=== PATIENT | male | born 1955 | race Caucasian/White ===

== ENCOUNTER → 2016-07-05 | Outpatient (CLI) | payer OTHER ==
[~2016-07-05] MED LIST: ASPI81TA28 PO; CYCL10TA6 PO; DOCU-94 PO; FSMD/70 PO; HYDR-3763 PO; HYDR-4383 PO; LISI-461 PO; METF-384 PO; NAPR1TAB9 PO; OXYC20TA50 PO
[2016-07-05 09:44] LABS: HEMATOCRIT 40.9 % (42-52); MEAN CELL VOLUME 83.3 fL (80-100); MEAN CORPUSCULAR HEMOGLOBIN 28.7 pg (25-34); MEAN CORPUSCULAR HGB CONC 34.5 g/dl (32-36); MEAN PLATELET VOLUME 9.6 fL (7.4-10.4); PLATELET COUNT 284 K/uL (130-400); RED BLOOD COUNT 4.91 M/uL (4.7-6.1); WHITE BLOOD COUNT 17.43 K/uL (4.8-10.8)
[2016-07-05 10:17] LABS: ESTIMATED AVERAGE GLUCOSE 126 mg/dl; HA1C FLAG Normal (Normal)
[2016-07-05 10:33] LABS: BASO % 0.2 %; BASO ABS # 0.04 K/uL (0-0.2); COMPLETE YES; IG% 0.2 %; LYMPH % 60.9 %; LYMPH ABS # 10.62 K/uL (1.2-3.4); MONO % 6.9 %; NEUT % 29.8 %; SMUDGE CELLS PRESENT
== END | disposition home or self-care (01) ==
LOC: C.LAB 07:58
DX: E11.9 Type 2 diabetes mellitus without complications (principal); C91.10 Chronic lymphocytic leukemia of B-cell type not having achieved remission

== ENCOUNTER → 2017-01-10 | Outpatient (CLI) | payer OTHER ==
--- NOTE | 2017-01-10 08:25 | DIAGNOSTIC IMAGING REPORT ---
CHEST 2 VIEWS ROUTINE HISTORY: 61 years-old Male SEE ORDER acute cough. COMPARISON: Chest radiograph 02/16/2016 TECHNIQUE: Frontal and lateral views of the chest FINDINGS: Cardiac silhouette is within normal limits. There is atherosclerosis of the aorta. No pneumothorax. Lungs are hyperinflated with chronic blunting of the bilateral costophrenic angles. No large pleural effusion is identified. No focal airspace consolidation. The bones are grossly intact. Remote fracture deformity of the left proximal humerus. IMPRESSION: Hyperinflation without acute cardiopulmonary process. The above report was generated using voice recognition software. It may contain grammatical, syntax or spelling errors. Electronically signed by: Sean Pickett M.D. 01/10/2017 8:23 AM Dictated Date/Time: 01/10/2017 8:22 AM
[2017-01-10 09:33] LABS: URINE APPEARANCE CLEAR (CLEAR); URINE BILIRUBIN NEG (NEG); URINE COLOR YELLOW; URINE NITRITE NEG (NEG); URINE PH 5.5 (4.5-7.5); URINE SPECIFIC GRAVITY 1.016 (1.000-1.030); UROBILINOGEN NEG (NEG)
[2017-01-10 09:35] LABS: HEMATOCRIT 42.1 % (42-52); MEAN CELL VOLUME 85.2 fL (80-100); MEAN CORPUSCULAR HEMOGLOBIN 28.1 pg (25-34); MEAN PLATELET VOLUME 9.5 fL (7.4-10.4); PLATELET COUNT 290 K/uL (130-400); RED BLOOD COUNT 4.94 M/uL (4.7-6.1); WHITE BLOOD COUNT 15.46 K/uL (4.8-10.8)
[2017-01-10 09:38] LABS: MANUAL MICROSCOPIC REQUIRED? NO; REVIEW REQ? NO
[2017-01-10 09:53] LABS: ESTIMATED AVERAGE GLUCOSE 131 mg/dl; HA1C FLAG Normal (Normal)
[2017-01-10 09:56] LABS: ALT/SGPT 22 U/L (12-78); AST/SGOT 15 U/L (15-37); BLOOD UREA NITROGEN 13 mg/dl (7-18); BUN/CREATININE RATIO 17.8 (10-20); CALCIUM 8.7 mg/dl (8.5-10.1); CARBON DIOXIDE 29 mmol/L (21-32); CHLORIDE 105 mmol/L (98-107); CREATININE 0.75 mg/dl (0.60-1.40); GLUCOSE 108 mg/dl (70-99); POTASSIUM 4.3 mmol/L (3.5-5.1); SODIUM 138 mmol/L (136-145)
[2017-01-10 10:08] LABS: ALB/GLOB RATIO 1.3 (0.9-2); ALKALINE PHOSPHATASE 62 U/L (45-117); CHOLESTEROL 122 mg/dl (0-200); CHOLESTEROL/HDL RATIO 4.2; HDL CHOLESTEROL 29 mg/dl; LDL CHOLESTEROL CALCULATED 72 mg/dl; TRIGLYCERIDES 106 mg/dl (0-150); URIC ACID 4.3 mg/dl (2.6-7.2); VERY LOW DENSITY LIPOPROT CALC 21 mg/dl
== END | disposition home or self-care (01) ==
LOC: C.RAD 07:41
DX: E11.9 Type 2 diabetes mellitus without complications (principal); C91.10 Chronic lymphocytic leukemia of B-cell type not having achieved remission; M15.0 Primary generalized (osteo)arthritis; I10 Essential (primary) hypertension; J44.9 Chronic obstructive pulmonary disease, unspecified; E66.9 Obesity, unspecified; Z12.5 Encounter for screening for malignant neoplasm of prostate; Z12.11 Encounter for screening for malignant neoplasm of colon; R05 Cough

== ENCOUNTER → 2017-05-16 | Outpatient (CLI) | payer OTHER ==
[2017-05-16 09:36] LABS: HEMATOCRIT 41.2 % (42-52); HEMOGLOBIN 14.3 g/dL (14.0-18.0); MEAN CELL VOLUME 85.3 fL (80-100); MEAN CORPUSCULAR HEMOGLOBIN 29.6 pg (25-34); MEAN CORPUSCULAR HGB CONC 34.7 g/dl (32-36); MEAN PLATELET VOLUME 9.5 fL (7.4-10.4); PLATELET COUNT 286 K/uL (130-400); RED CELL DISTRIBUTION WIDTH CV 13.1 % (11.5-14.5); WHITE BLOOD COUNT 18.34 K/uL (4.8-10.8)
== END | disposition home or self-care (01) ==
LOC: C.LAB 07:40
PROVIDERS: ATTEND Physician Assistant
DX: C91.10 Chronic lymphocytic leukemia of B-cell type not having achieved remission (principal)

== ENCOUNTER → 2017-07-11 | Outpatient (CLI) | payer OTHER ==
--- NOTE | 2017-07-11 10:18 | DIAGNOSTIC IMAGING REPORT ---
R KNEE 3 VIEWS CLINICAL HISTORY: POLYOSTEOARTHRITIS,UNSPEC COMPARISON: None. DISCUSSION: Considerable degenerative change of all major joint compartments. Mild reactive sclerosis of the articular services. Mild reactive osteophytic changes throughout. No significant joint effusion. There is no evidence for soft tissue swelling. IMPRESSION: Severe degenerative change all major joint compartments. The above report was generated using voice recognition software. It may contain grammatical, syntax or spelling errors. Electronically signed by: Dhaval Mota M.D. 07/11/2017 10:17 AM Dictated Date/Time: 07/11/2017 10:16 AM
== END | disposition home or self-care (01) ==
LOC: C.RAD 09:48
PROVIDERS: ATTEND Physician Assistant
DX: M15.9 Polyosteoarthritis, unspecified (principal)

== ENCOUNTER 2018-09-23 12:26 | Inpatient (IN) ==
[2018-09-23] MEDS ORDERED: SODIUM CHLORIDE 0.9% 500 ML IV ONE (12:37)
[2018-09-23] MEDS ORDERED: SODIUM CHLORIDE 0.9% 1000ML 1,000 ML IV SCH (12:45)
[2018-09-23 12:59] LABS: Hematocrit (blood only) 36.2 % (42-52); Hemoglobin 12.8 g/dL (14.0-18.0); Mean Corpuscular Hgb Conc 35.4 g/dL (32-36); Mean Corpuscular Volume 83.2 fL (80-100); Mean Platelet Volume 8.8 fL (7.4-10.4); Platelet Count 269 K/uL (130-400); RDW Coefficient of Variation 12.7 % (11.5-14.5); RDW Standard Deviation 38.8 fL (36.4-46.3); Red Blood Count 4.35 M/uL (4.7-6.1); White Blood Count 16.08 K/uL (4.8-10.8)
--- NOTE | 2018-09-23 13:06 | XRay Report ---
XR chest 1V portable CLINICAL HISTORY: femur fx trauma COMPARISON STUDY: 03/26/2018 FINDINGS: Mildly dense. Mediastinal fullness felt to be secondary to the AP portable technique. Lungs are clear. Diaphragms are smooth. Several old left sided rib fractures. IMPRESSION: No acute process. The above report was generated using voice recognition software. It may contain grammatical, syntax or spelling errors. Electronically signed by: Dhaval Mota M.D. 09/23/2018 1:05 PM
--- NOTE | 2018-09-23 13:07 | XRay Report ---
XR hip LT min 2V CLINICAL HISTORY: fx trauma. Pain. COMPARISON: None. DISCUSSION: Transverse displaced fracture mid left femoral shaft. The proximal aspect of the femur is 2.8 cm lateral to the distal aspect of the femur. Hip itself appears intact. There is no evidence fo r soft tissue swelling. IMPRESSION: Displaced transverse fracture mid left femoral shaft. The distal aspect of the femur is d isplaced medially 2.8 cm in relation to the proximal femur The above report was generated using voice recognition software. It may contain grammatical, syntax or spelling errors. Electronically signed by: Dhaval Mota M.D. 09/23/2018 1:06 PM
--- NOTE | 2018-09-23 13:08 | XRay Report ---
XR femur LT 2V routine CLINICAL HISTORY: Left leg pain. COMPARISON STUDY: None. FINDINGS: Left mid shaft femoral fracture demonstrating 3 cm of medial displacement and 2 cm of poste rior displacement.. An external brace is noted. No dislocation. IMPRESSION: Displaced midshaft left femoral fracture. Electronically signed by: Ricky Raman M.D. 09/23/2018 1:07 PM
[2018-09-23 13:15] LABS: BUN Creatinine Ratio 15.1 (10-20); Calcium 8.9 mg/dl (8.5-10.1); Creatinine Clr Calc Pharmacy 95.4 ml/min; Est GFR (African American) 104.5; Est GFR (Non-African American) 90.1; Potassium 3.9 mmol/L (3.5-5.1)
--- NOTE | 2018-09-23 13:18 | Emergency Department Note ---
Entered by Zohreh Arora acting as a scribe for Juan Pickering DO History of Present Illness General Chief complaint: Leg Injury/Pain Time Seen by Provider: 09/23/18 12:29 Source: patient and EMS History of Present Illness Onset (ago): minute(s) (prior to arrival) Location: lower extremity (left) Pain Consistency: + other (episode) Current Pain Intensity: 5 Quality: + other (leg injury) Relieved By: + medication (Zofran, Morphine) Associated symptoms: + denies other symptoms (abdominal pain, loss of consciousness) and + other (dizziness, chronic ear ringing) The patient is a 63 year old male who presents to the ED with complaints of an episode of a leg injury occurring prior to arrival. The patient states that he was mowing his yard backwards down a steep hill when he slipped and fell. He states that he held onto the mower to keep it from running him over and he ended up hitting the patio table at the bottom of the hill. He notes that he hit the table with his left leg. He states that he knew something was really wrong when he was lying on the ground and his leg was up by his head. He notes that at this time he started to become dizzy while lying there. He reports that he called out for his and she called 911. EMS notes that they gave the patient 10 of Morphine and 4 of Zofran. The patient states that he has left leg pain and currently rates it as a 5/10 in severity. The patient complains of chronic ear ringing. The patient denies the use of blood thinners, hitting his head, abdominal pain, and loss of consciousness. Home Medications Home Medications Medication Instructions Recorded Confirmed Type alendronate 70 mg PO DAILY 03/26/18 09/23/18 History aspirin 81 mg PO DAILY 03/26/18 09/23/18 History carboxymethylcellulose sodium 1 drops OP Q1H #12 ml 03/26/18 09/23/18 Rx [Refresh Contacts eye drops] hydrocodone-acetaminophen 1 tab PO Q6H 03/26/18 09/23/18 History metformin 1,000 mg PO BID 03/26/18 09/23/18 History lisinopril 40 mg PO DAILY 09/23/18 09/23/18 History meloxicam 15 mg PO DIRECTED 09/23/18 09/23/18 History Allergies Allergy/AdvReac Type Severity Reaction Status Date / Time morphine Allergy Unknown Hives, Verified 11/09/17 17:25 Shakes Past Med/Surg History Medical History Hypertension Chronic lumbar pain Chronic lymphoid leukemia Diabetes Surgical History History of back surgery Family History Other No significant family history Social History marital status: Current Living Situation: Family current occupational status: retired Feels Safe at Home: Yes Smoking Status: Current every day smoker Review of Systems See HPI for pertinent positives & negatives. and A total of 10 systems reviewed and were otherwise negative Physical Exam Vital Signs Vital Signs - 24 hr 09/23/18 12:27 09/23/18 12:40 09/23/18 12:42 Sepsis Recent Fever Within 48 Hours No Sepsis Action Taken by Nursing No Action Required Pulse Rate 88 96 H Pulse Rate from SpO2 Sensor 89 Pulse Strength Absent Respiratory Rate 18 Respiratory Effort / Characteristics Non-Labored Respiratory Depth Normal Blood Pressure 99/58 L 108/56 L 99/59 L Blood Pressure Mean 71 73 72 Blood Pressure Position Lying Pulse Oximetry 97 98 Oxygen Delivery Method Room Air 09/23/18 12:46 09/23/18 13:15 09/23/18 13:31 Sepsis Recent Fever Within 48 Hours Sepsis Action Taken by Nursing Pulse Rate 88 83 93 H Pulse Rate from SpO2 Sensor 90 85 89 Pulse Strength Respiratory Rate 14 16 Respiratory Effort / Characteristics Respiratory Depth Blood Pressure 97/63 L 107/59 L Blood Pressure Mean 74 75 Blood Pressure Position Pulse Oximetry 97 98 96 Oxygen Delivery Method 09/23/18 13:45 Sepsis Recent Fever Within 48 Hours Sepsis Action Taken by Nursing Pulse Rate 100 H Pulse Rate from SpO2 Sensor 97 H Pulse Strength Respiratory Rate 17 Respiratory Effort / Characteristics Respiratory Depth Blood Pressure 99/59 L Blood Pressure Mean 72 Blood Pressure Position Pulse Oximetry 99 Oxygen Delivery Method CONSTITUTIONAL/VITAL SIGNS: Reviewed / noted above. GENERAL: Non-toxic in appearance. INTEGUMENTARY: Warm, dry, and [place]. HEAD: Normocephalic. EYES: without scleral icterus or trauma. ENT/OROPHARYNX: clear and moist. LYMPHADENOPATHY/NECK: Is supple without lymphadenopathy or meningismus. RESPIRATORY: Lungs clear and equal. CARDIOVASCULAR: Regular rate and rhythm. GI/ABDOMEN: Soft and nontender. No organomegaly or pulsatile mass. No rebound or guarding. Normal bowel sounds. EXTREMITIES: Warm and well perfused. BACK: No CVA tenderness. NEUROLOGICAL: Intact without focal deficits. PSYCHIATRIC: normal affect. MUSCULOSKELETAL: Normally developed with good muscle tone. Tenderness to palpation of his left proximal femur. Good distal pulses. Course 1229: The patient was evaluated in room A1. A complete history and physical exam was performed. 1318: I discussed the patient's case with Dr. Mariella Hubbard. He will come see the patient, but wants medicine to clear him. 1325: I discussed the patient's case with Dr. Rosa Maria SANTANA Hospitalist. She will come clear the patient. Consultations Consultation #1: I discussed the patient's case with Dr. Mariella Hubbard. He will come see the patient, but wants medicine to clear him. Time: 13:18 Consultation #2: I discussed the patient's case with Dr. Rosa Maria SANTANA Hospitalist. She will come clear the patient. Time: 13:25 Administered Medications Sodium Chloride (Nss 1000ml) 1,000 mls @ 150 mls/hr IV .[id number] SANAM Stop: 09/23/18 19:24 Last Admin: 09/23/18 13:35 Dose: 150 mls/hr Documented by: [id number] Discontinued Medications Hydromorphone HCl (Dilaudid) 1 mg IV NOW STA Stop: 09/23/18 13:38 Last Admin: 09/23/18 13:49 Dose: 1 mg Documented by: [id number] Sodium Chloride (Nss) 500 mls @ 999 mls/hr IV .Q31M ONE Stop: 09/23/18 13:07 Last Infusion: 09/23/18 13:23 Dose: 0 mls/hr Documented by: [id number] Admin: 09/23/18 12:46 Dose: 999 mls/hr Documented by: [id number] Medical Decision Making Differential Diagnosis Differential diagnosis: Etiologies such as fracture, dislocation, neurovascular compromise, compartment syndrome, soft tissue injury, as well as others were entertained. Medical Records Attestation: I reviewed the patient's medical records. Home Medications Current Medication List: was personally reviewed by me Laboratory Data Attestation: I reviewed the patient's lab results. Result diagrams: 09/23/18 12:41 09/23/18 12:41 Lab Results 09/23/18 09/23/18 09/23/18 Range/Units 12:41 12:41 12:41 WBC 16.08 H (4.8-10.8) K/uL RBC 4.35 L (4.7-6.1) M/uL Hgb 12.8 L (14.0-18.0) g/dL Hct 36.2 L (42-52) % MCV 83.2 (80-100) fL MCH 29.4 (25-34) pg MCHC 35.4 (32-36) g/dL RDW Std Deviation 38.8 (36.4-46.3) fL RDW Coeff of Maury 12.7 (11.5-14.5) % Plt Count 269 (130-400) K/uL MPV 8.8 (7.4-10.4) fL Immature Gran % (Auto) 0.2 % Neut % (Auto) 36.8 % Lymph % (Auto) 55.4 % [place] % (Auto) 6.5 % Eos % (Auto) 0.9 % Baso % (Auto) 0.2 % Immature Gran # (Auto) 0.04 H (0.00-0.02) K/uL Neut # (Auto) 5.92 (1.4-6.5) K/uL Lymph # (Auto) 8.91 H (1.2-3.4) K/uL [place] # (Auto) 1.04 H (0.11-0.59) K/uL Eos # (Auto) 0.14 (0-0.5) K/uL Baso # (Auto) 0.03 (0-0.2) K/uL PT 10.0 (9.0-12.0) Seconds INR 1.0 (0.9-1.1) APTT 24.5 (21.0-31.0) Seconds PTT Ratio 0.9 Sodium 132 L (136-145) mmol/L Potassium 3.9 (3.5-5.1) mmol/L Chloride 100 (98-107) mmol/L Carbon Dioxide 25 (21-32) mmol/L Anion Gap 7.0 (3-11) BUN 13 (7-18) mg/dl Creatinine 0.88 (0.6-1.4) mg/dl Est Cr Clr Drug Dosing 95.4 ml/min Est GFR ( Amer) 104.5 Est GFR (Non-Af Amer) 90.1 BUN/Creatinine Ratio 15.1 (10-20) Glucose 94 (70-99) mg/dl Calcium 8.9 (8.5-10.1) mg/dl Blood Type Antibody Screen 09/23/18 Range/Units 12:41 WBC (4.8-10.8) K/uL RBC (4.7-6.1) M/uL Hgb (14.0-18.0) g/dL Hct (42-52) % MCV (80-100) fL MCH (25-34) pg MCHC (32-36) g/dL RDW Std Deviation (36.4-46.3) fL RDW Coeff of Maury (11.5-14.5) % Plt Count (130-400) K/uL MPV (7.4-10.4) fL Immature Gran % (Auto) % Neut % (Auto) % Lymph % (Auto) % [place] % (Auto) % Eos % (Auto) % Baso % (Auto) % Immature Gran # (Auto) (0.00-0.02) K/uL Neut # (Auto) (1.4-6.5) K/uL Lymph # (Auto) (1.2-3.4) K/uL [place] # (Auto) (0.11-0.59) K/uL Eos # (Auto) (0-0.5) K/uL Baso # (Auto) (0-0.2) K/uL PT (9.0-12.0) Seconds INR (0.9-1.1) APTT (21.0-31.0) Seconds PTT Ratio Sodium (136-145) mmol/L Potassium (3.5-5.1) mmol/L Chloride (98-107) mmol/L Carbon Dioxide (21-32) mmol/L Anion Gap (3-11) BUN (7-18) mg/dl Creatinine (0.6-1.4) mg/dl Est Cr Clr Drug Dosing ml/min Est GFR ( Amer) Est GFR (Non-Af Amer) BUN/Creatinine Ratio (10-20) Glucose (70-99) mg/dl Calcium (8.5-10.1) mg/dl Blood Type O Positive Antibody Screen NEGATIVE Imaging Data Radiologist's Impression: Radiology results as stated below per my review and the radiologist's interpretation: XR chest 1V portable CLINICAL HISTORY: femur fx trauma COMPARISON STUDY: 03/26/2018 FINDINGS: Mildly dense. Mediastinal fullness felt to be secondary to the AP portable technique. Lungs are clear. Diaphragms are smooth. Several old left sided rib fractures. IMPRESSION: No acute process. The above report was generated using voice recognition software. It may contain grammatical, syntax or spelling errors. Electronically signed by: Dhaval Mota M.D. 09/23/2018 1:05 PM XR hip LT min 2V CLINICAL HISTORY: fx trauma. Pain. COMPARISON: None. DISCUSSION: Transverse displaced fracture mid left femoral shaft. The proximal aspect of the femur is 2.8 cm lateral to the distal aspect of the femur. Hip itself appears intact. There is no evidence for soft tissue swelling. IMPRESSION: Displaced transverse fracture mid left femoral shaft. The distal aspect of the femur is displaced medially 2.8 cm in relation to the proximal femur The above report was generated using voice recognition software. It may contain grammatical, syntax or spelling errors. Electronically signed by: Dhaval Mota M.D. 09/23/2018 1:06 PM XR femur LT 2V routine CLINICAL HISTORY: Left leg pain. COMPARISON STUDY: None. FINDINGS: Left mid shaft femoral fracture demonstrating 3 cm of medial displacement and 2 cm of posterior displacement.. An external brace is noted. No dislocation. IMPRESSION: Displaced midshaft left femoral fracture. Electronically signed by: Ricky Raman M.D. 09/23/2018 1:07 PM ECG Data Attestation: I personally reviewed and interpreted this ECG as follows: Indication: other (dizziness) Rate (beats per minute): 88 Rhythm: normal sinus Findings: no PAC, no PVC, no ST elevation and no ectopy Blood Pressure Blood Pressure Findings: Low blood pressure Blood Pressure Disposition: further management by hospitalist TEO Jama This is a 63-year-old male who presents to the ED with a chief complaint of a left leg injury. The patient injured his left femur when he was mowing his lawn. The patient states that he went backwards and slipped over a hill and then hit his left leg against a picnic table. The patient was brought in by [facility]. The patient was placed in traction by EMS. He denies any injuries other than his leg. Denies striking his head or loss of consciousness. His exam reveals pain in the left mid femur area. The x-ray reveals a midshaft femur fracture that is displaced. Is CBC is unremarkable. Chemistry panel was unremarkable. The patient was given 10 mg of IV morphine by EMS. The patient was told the results of the test. I spoke with Dr. Pierre about the patient. He will see the patient in the emergency department. The patient will also be seen by the hospitalist service for medical clearance. The patient was given IV pain medication here in the form of Dilaudid. Impression & Plan Femur fracture, left Discharge Plan Visit Data Chief Complaint: Leg Injury/Pain ED Provider: Juan Pickering Discharge Problem: Femur fracture, left Patient Disposition: Being Evaluated by Surgeon Forms Stand Alone Forms: My [facility] Prescriptions Prescriptions: No Action Refresh Contacts drops 1 drops OP Q1H Qty: 12 RF: 0 alendronate 70 mg tablet 70 mg PO DAILY RF: 0 hydrocodone-acetaminophen 10-325 mg tablet 1 tab PO Q6H RF: 0 aspirin 81 mg Tablet,Delayed Release (Dr/Ec) 81 mg PO DAILY RF: 0 metformin 1,000 mg Tablet 1,000 mg PO BID RF: 0 meloxicam 15 mg tablet 15 mg PO DIRECTED RF: 0 lisinopril 40 mg tablet 40 mg PO DAILY RF: 0 Referrals Referrals: Kel Quinones PA-C [Primary Care Provider] - Discharge Problem: Femur fracture, left Qualifiers: Encounter type: initial encounter Femur location: unspecified portion of femur Fracture type: closed Fracture morphology: unspecified fracture morphology Qualified Code(s): S72.92XA - Unspecified fracture of left femur, initial e ncounter for closed fracture The scribe's documentation has been prepared under my direction and personally reviewed by me in its entirety. I confirm that the note above accurately reflects all work, treatment, procedures, and medical decision making performed by me.
[2018-09-23 13:26] LABS: Partial Thromboplastin Ratio 0.9; Partial Thromboplastin Time 24.5 Seconds (21.0-31.0)
[2018-09-23 13:37] LABS: Basophils # (auto) 0.03 K/uL (0-0.2); Basophils % (auto) 0.2 %; Eosinophils # (auto) 0.14 K/uL (0-0.5); Eosinophils % (auto) 0.9 %; Immature Granulocytes # (auto) 0.04 K/uL (0.00-0.02); Immature Granulocytes % (auto) 0.2 %; Lymphocytes # (auto) 8.91 K/uL (1.2-3.4); Lymphocytes % (auto) 55.4 %; Monocytes # (auto) 1.04 K/uL (0.11-0.59); Monocytes % (auto) 6.5 %; Neutrophils # (auto) 5.92 K/uL (1.4-6.5); Neutrophils % (auto) 36.8 %
[2018-09-23] MEDS ORDERED: HYDROmorphone INJ 1 MG/ML SYRINGE IV STA (13:37)
--- NOTE | 2018-09-23 14:03 | History & Physical Report ---
Date of Service September 23, 2018 Assessment & Plan (1) Femur fracture, left: Admission to med surg floor Plan on surgery tomorrow around noon OR time/room established Consult Medicine for medical clearance Placed in to white hall traction Pain mildly controlled with IV medication Will relay info to Dr. Gabby Pierre will see the patient this afternoon. Encounter type: initial encounter Femur location: unspecified portion of femur Fracture morphology: unspecified fracture morphology Fracture type: closed Qualified Code(s): S72.92XA - Unspecified fracture of left femur, initial encounter for closed fracture History of Present Illness Chief Complaint: Left femur fracture Primary Care Provider: Kel Quinones This 63 yo M is seen today in ED after sustaining a left upper leg injury. Patient was mowing his law earlier today, got too close to an embankment, fell down the hill and struck his left leg off of a patio table. Patient states that he had an obvious deformity of the left lower extremity and had his call EMS. Patient was placed into a traction splint before being transferred to the hospital. Patient denies any head or neck trauma. He denies CP, SOB, nausea, vomiting, LOC, headache, fever, chills or sweat. His only complaint is of pain to his mid femur where "the bone is pushing out." Allergies Allergy/AdvReac Type Severity Reaction Status Date / Time morphine Allergy Unknown Hives, Verified 11/09/17 17:25 Sha Home Medications Home Medications Medication Instructions Recorded Confirmed Type alendronate 70 mg PO DAILY 03/26/18 09/23/18 History aspirin 81 mg PO DAILY 03/26/18 09/23/18 History carboxymethylcellulose sodium 1 drops OP Q1H #12 ml 03/26/18 09/23/18 Rx [Refresh Contacts eye drops] hydrocodone-acetaminophen 1 tab PO Q6H 03/26/18 09/23/18 History metformin 1,000 mg PO BID 03/26/18 09/23/18 History lisinopril 40 mg PO DAILY 09/23/18 09/23/18 History meloxicam 15 mg PO DIRECTED 09/23/18 09/23/18 History Past Med/Surg History Medical History Hypertension Chronic lumbar pain Chronic lymphoid leukemia Diabetes Surgical History History of back surgery Family History Other No significant family history Social History marital status: Current Living Situation: Family current occupational status: retired Feels Safe at Home: Yes Smoking Status: Current every day smoker Review of Systems All systems reviewed & are unremarkable except as noted in HPI & below Physical Exam Vital Signs (Past 24 Hours): Last Vital Signs Pulse 100 H 09/23/18 13:45 Resp 17 09/23/18 13:45 BP 99/59 L 09/23/18 13:45 Pulse Ox 99 09/23/18 13:45 Constitutional: WD/WN, vitals as above cooperative and + overweight Eyes: PERRL, conjunctivae normal, anicteric sclerae EOM intact bilaterally Respiratory: normal respiratory effort, lungs clear to auscultation Cardiovascular: RRR, no murmur, no edema Gastrointestinal (Abdomen): normal bowel sounds, soft, nontender, no hepatosplenomegaly Musculoskeletal: Left lower leg: shortened and externally rotated. Edema and tenderness to palpation over anterior and lateral aspect of mid femur with palpable deformity. NV intact. Able to dorsi/plantar flex foot actively. Appropriate dexterity of toes. Periph pulses palpable. Cap refill < 2 seconds. Calf soft, supple and non-tender to palpation. Knee and Hip ROM not tested due to injury. Skin: no rashes, warm and dry Neurologic: CN's II-XI intact bilaterally Psychiatric: Orientation: alert and oriented x 3 Results & Data Laboratory Results 09/23/18 09/23/18 09/23/18 Range/Units 13:56 12:41 12:41 WBC (4.8-10.8) K/uL RBC (4.7-6.1) M/uL Hgb (14.0-18.0) g/dL Hct (42-52) % MCV (80-100) fL MCH (25-34) pg MCHC (32-36) g/dL RDW Std Deviation (36.4-46.3) fL RDW Coeff of Maury (11.5-14.5) % Plt Count (130-400) K/uL MPV (7.4-10.4) fL Immature Gran % (Auto) % Neut % (Auto) % Lymph % (Auto) % [place] % (Auto) % Eos % (Auto) % Baso % (Auto) % Immature Gran # (Auto) (0.00-0.02) K/uL Neut # (Auto) (1.4-6.5) K/uL Lymph # (Auto) (1.2-3.4) K/uL [place] # (Auto) (0.11-0.59) K/uL Eos # (Auto) (0-0.5) K/uL Baso # (Auto) (0-0.2) K/uL PT (9.0-12.0) Seconds INR (0.9-1.1) APTT (21.0-31.0) Seconds PTT Ratio Sodium 132 L (136-145) mmol/L Potassium 3.9 (3.5-5.1) mmol/L Chloride 100 (98-107) mmol/L Carbon Dioxide 25 (21-32) mmol/L Anion Gap 7.0 (3-11) BUN 13 (7-18) mg/dl Creatinine 0.88 (0.6-1.4) mg/dl Est Cr Clr Drug Dosing 95.4 ml/min Est GFR ( Amer) 104.5 Est GFR (Non-Af Amer) 90.1 BUN/Creatinine Ratio 15.1 (10-20) Glucose 94 (70-99) mg/dl Calcium 8.9 (8.5-10.1) mg/dl Urine Color Pending Urine Appearance Pending Urine pH Pending Ur Specific [place] Pending Urine Protein Pending Urine Glucose (UA) Pending Urine Ketones Pending Urine Blood Pending Urine Nitrite Pending Urine Bilirubin Pending Urine Urobilinogen Pending Ur Leukocyte Esterase Pending Blood Type O Positive Antibody Screen NEGATIVE 09/23/18 09/23/18 Range/Units 12:41 12:41 WBC 16.08 H (4.8-10.8) K/uL RBC 4.35 L (4.7-6.1) M/uL Hgb 12.8 L (14.0-18.0) g/dL Hct 36.2 L (42-52) % MCV 83.2 (80-100) fL MCH 29.4 (25-34) pg MCHC 35.4 (32-36) g/dL RDW Std Deviation 38.8 (36.4-46.3) fL RDW Coeff of Maury 12.7 (11.5-14.5) % Plt Count 269 (130-400) K/uL MPV 8.8 (7.4-10.4) fL Immature Gran % (Auto) 0.2 % Neut % (Auto) 36.8 % Lymph % (Auto) 55.4 % [place] % (Auto) 6.5 % Eos % (Auto) 0.9 % Baso % (Auto) 0.2 % Immature Gran # (Auto) 0.04 H (0.00-0.02) K/uL Neut # (Auto) 5.92 (1.4-6.5) K/uL Lymph # (Auto) 8.91 H (1.2-3.4) K/uL [place] # (Auto) 1.04 H (0.11-0.59) K/uL Eos # (Auto) 0.14 (0-0.5) K/uL Baso # (Auto) 0.03 (0-0.2) K/uL PT 10.0 (9.0-12.0) Seconds INR 1.0 (0.9-1.1) APTT 24.5 (21.0-31.0) Seconds PTT Ratio 0.9 Sodium (136-145) mmol/L Potassium (3.5-5.1) mmol/L Chloride (98-107) mmol/L Carbon Dioxide (21-32) mmol/L Anion Gap (3-11) BUN (7-18) mg/dl Creatinine (0.6-1.4) mg/dl Est Cr Clr Drug Dosing ml/min Est GFR ( Amer) Est GFR (Non-Af Amer) BUN/Creatinine Ratio (10-20) Glucose (70-99) mg/dl Calcium (8.5-10.1) mg/dl Urine Color Urine Appearance Urine pH Ur Specific [place] Urine Protein Urine Glucose (UA) Urine Ketones Urine Blood Urine Nitrite Urine Bilirubin Urine Urobilinogen Ur Leukocyte Esterase Blood Type Antibody Screen Diagnostic Findings XR chest 1V portable CLINICAL HISTORY: femur fx trauma COMPARISON STUDY: 03/26/2018 FINDINGS: Mildly dense. Mediastinal fullness felt to be secondary to the AP portable technique. Lungs are clear. Diaphragms are smooth. Several old left sided rib fractures. IMPRESSION: No acute process. The above report was generated using voice recognition software. It may contain grammatical, syntax or spelling errors. Electronically signed by: Dhaval Mota M.D. 09/23/2018 1:05 PM XR hip LT min 2V CLINICAL HISTORY: fx trauma. Pain. COMPARISON: None. DISCUSSION: Transverse displaced fracture mid left femoral shaft. The proximal aspect of the femur is 2.8 cm lateral to the distal aspect of the femur. Hip itself appears intact. There is no evidence for soft tissue swelling. IMPRESSION: Displaced transverse fracture mid left femoral shaft. The distal aspect of the femur is displaced medially 2.8 cm in relation to the proximal femur The above report was generated using voice recognition software. It may contain grammatical, syntax or spelling errors. Electronically signed by: Dhaval Mota M.D. 09/23/2018 1:06 PM XR femur LT 2V routine CLINICAL HISTORY: Left leg pain. COMPARISON STUDY: None. FINDINGS: Left mid shaft femoral fracture demonstrating 3 cm of medial displacement and 2 cm of posterior displacement.. An external brace is noted. No dislocation. IMPRESSION: Displaced midshaft left femoral fracture. ECG Additional Comments: ECG Data Attestation: I personally reviewed and interpreted this ECG as follows: Indication: other (dizziness) Rate (beats per minute): 88 Rhythm: normal sinus Findings: no PAC, no PVC, no ST elevation and no ectopy Code Status & VTE Plan VTE Prophylaxis Plan VTE Prophylaxis will be ordered: Yes
[2018-09-23] MEDS ORDERED: DiphenhydrAMINE HCL 50 MG/ML VIAL IV PRN (14:33)
[2018-09-23] MEDS ORDERED: ONDANSETRON INJ 2 MG/ML 2 ML VIAL IV PRN (14:33)
[2018-09-23] MEDS ORDERED: METOCLOPRAMIDE HCL INJ 5 MG/ML 2 ML VIAL IV PRN (14:33)
[2018-09-23 14:34] LABS: Appearance Urine Clear (Clear); Bilirubin Urine Negative (Negative); Color Urine Dark Yellow; Glucose Urine UA Negative (Negative); Ketones Urine Negative (Negative); Leukocyte Esterase Urine Negative (Negative); Nitrite Urine Negative (Negative); Protein Urine Negative (Negative); Specific Gravity Urine 1.016 (1.000-1.030); Urobilinogen Urine Negative (Negative); pH Urine 7.5 (4.5-7.5)
[2018-09-23] MEDS ORDERED: MELOXICAM 7.5 MG TAB PO PRN (14:45)
--- NOTE | 2018-09-23 15:15 | Internal Medicine Consult Note ---
Date of Consultation September 23, 2018 Assessment & Plan (1) Femur fracture, left: Relative cardiac risk index is 0-1. Patient is low intermediate risk for intermediate risk surgery. Benefits outweigh the risk for surgery. Encounter type: initial encounter Femur location: unspecified portion of femur Fracture morphology: unspecified fracture morphology Fracture type: closed Qualified Code(s): S72.92XA - Unspecified fracture of left femur, initial encounter for closed fracture (2) Hypertension: BP at goal will monitor (3) Diabetes mellitus with hyperglycemia: Patients blood sugar will be monitored, patient is on metformin as an outpatient History of Present Illness Reason for Consultation: Preop clearance History of Present Illness This is a 63 yo M who is being consulted by Internal Medicine for medical management. Patient had sustained a leg injury while mwoing his lawn. He states that he fell down in an ackward postion. He states that he may have hit his patio table as well. He noticed pain in his left leg and it was deformed. Patient was transferred to the hospital. His ROS was essentially negative, CP, SOB, nausea, vomiting, fever, chills, sweats, diaphoresis, headaches, blurry vision. His main complaint is pain in his middle of his thigh. Patient denies history of [place], stroke, kidney failure,insulin use. Allergies Allergy/AdvReac Type Severity Reaction Status Date / Time morphine Allergy Unknown Hives, Verified 11/09/17 17:25 Shakes Home Medications Home Medications Medication Instructions Recorded Confirmed Type Refresh Contacts 1 drops OP Q1H #12 ml 03/26/18 09/23/18 Rx alendronate 70 mg PO DAILY 03/26/18 09/23/18 History aspirin 81 mg PO DAILY 03/26/18 09/23/18 History hydrocodone-acetaminophen 1 tab PO Q6H PRN 03/26/18 09/23/18 History metformin 1,000 mg PO BID 03/26/18 09/23/18 History acetaminophen [Mapap 650 mg PO Q6H PRN #30 tab 09/25/18 Rx (acetaminophen)] docusate sodium [Colace] 100 mg PO BID #60 cap 09/25/18 Rx enoxaparin [Lovenox] 30 mg SUBCUT Q12H #28 syr 09/25/18 Rx hydrocodone-acetaminophen 1 tab PO Q6H PRN #30 tab 09/25/18 Rx lisinopril [Zestril] 40 mg PO DAILY #30 tab 09/25/18 Rx nicotine 1 patch TD DAILY #30 ea 09/25/18 Rx tramadol 50 - 100 mg PO Q4H PRN #30 tab 09/25/18 Rx Patient History Medical History Hypertension Chronic lumbar pain Chronic lymphoid leukemia Diabetes Hyponatremia Surgical History History of back surgery Family History Other No significant family history Social History Preferred Language: Romanian Communication Ability: Effective [employer] Required: No Beliefs That Will Affect Care: None marital status: Current Living Situation: Spouse current occupational status: retired Other Information That Helps Us Care for You: No Feels Safe at Home: Yes Smoking Status: Current every day smoker Tobacco Type: cigarettes Do You Dip or Chew Tobacco: No Second Hand Exposure: Yes Tobacco Cessation Education Requested by Patient: No Hx Alcohol Use: No Hx Substance Use: No Review of Systems Review of Systems: All systems reviewed & are unremarkable except as noted in HPI & below Physical Exam Constitutional: well developed; no acute distress Eyes: PERRL, conjunctivae normal, anicteric sclerae ENMT: external ear and nose normal, oropharynx normal Respiratory: normal respiratory effort, lungs clear to auscultation Cardiovascular: RRR, no murmur, no edema Gastrointestinal (Abdomen): normal bowel sounds, soft, nontender, no hepatosplenomegaly Neurologic: normal touch/pain/proprioception and awake Psychiatric: Orientation: alert Results & Data Vital Signs (Past 12 Hours) Vital Signs Pulse Resp BP Pulse Ox 09/23/18 15:01 98 H 23 99/71 L 99 09/23/18 15:00 95 H 13 98 09/23/18 14:46 93 H 16 113/65 99 09/23/18 14:30 99 H 19 109/64 98 09/23/18 14:18 86 24 100 09/23/18 14:17 77 19 110/76 98 09/23/18 14:00 89 18 111/71 99 09/23/18 13:45 100 H 17 99/59 L 99 09/23/18 13:31 93 H 16 107/59 L 96 09/23/18 13:15 83 14 98 09/23/18 12:46 88 97/63 L 97 09/23/18 12:42 96 H 18 99/59 L 98 09/23/18 12:40 88 108/56 L 97 09/23/18 12:27 99/58 L
[2018-09-23] MEDS: HYDROCODONE/ACETAMINOPHEN 10/325 TAB PO PRN ×2 (16:56→23:48)
[2018-09-23] MEDS ORDERED: METFORMIN HCL 500 MG TAB PO SCH (17:00)
[2018-09-23] MEDS ORDERED: HYDROmorphone INJ 0.5 MG/0.5 ML SYR IV PRN (17:49)
[2018-09-23] MEDS ORDERED: CEFAZOLIN 1000MG 1,000 MG/7.5 ML SYR IV ONE (17:49)
--- NOTE | 2018-09-23 19:15 | Progress Note ---
DATE: 09/23/2018 The patient is seen in conjunction with ROSEANN Vyas. For further details, please refer to his dictation. I have seen and evaluated the patient and agree with the plan. The patient 63 years old. He lost his balance mowing the grass, fell, hit a table, twisted his left leg. Had a deformed femoral fracture. Was brought to the hospital. He has a history of multiple fractures as a child. He broke his back as an adult. Disabled due to his back problem and takes chronic narcotics, approximately 3-4 hydrocodones per day. Past medical history is significant for CLL, diabetes, osteoporosis, high blood pressure. He denies MRSA, metal sensitivity, bleeding, blood clots or other cancer. He has had an abdominal mesh surgery, back surgery and his tonsils removed. His medications are noted on the chart and include Fosamax. Fosamax, aspirin and meloxicam are held. His metformin is held and a glycemic control consult is placed. He reports an unknown ALLERGY TO PENICILLIN. His ALLERGY TO MORPHINE is that he had itching and crawling of his skin, but did not have swelling of the lips, tongue or throat or difficulty breathing. He has not drunk in 18 years. He smokes 1 pack of cigarettes per day for many years. He is counseled about the adverse effects of smoking upon his health and healing of the bone. Smoking could cause the bone to not heal and cause the need for further surgery and I have counseled him to quit smoking. Smoking cessation counselor will be consulted. On examination, the left thigh is tender. There is no break in the skin. Swelling is minimal. He has 5/5 ankle and toe plantar flexion and dorsiflexion strength, normal sensation in the foot and 2+ dorsalis pedis and posterior tibial pulses. His chest x-ray and EKG are noted. His labs are noted. White count is 16 and remains chronically elevated. Hematocrit is 36. Coags normal. Chemistry shows low sodium. The femur radiographs show a fracture just proximal to mid shaft. A little thickening of the lateral cortex. A short oblique fracture. Could be consistent with atypical femur fracture. I spoke with the patient and his family. They are educated about the injury. We talked about the options. I recommended surgery and discussed this with them. We talked about the risks, benefits, rehab and recovery. Plan will be for a long troch nail tomorrow. He will be n.p.o., have antibiotics preoperatively. Informed consent was obtained.
[2018-09-23] MEDS: NICOTINE 14 MG/24 HR PATCH TD SCH (19:55)
[2018-09-23] MEDS: ARTIFICIAL TEARS OP SCH ×5 (19:56→21:45)
[2018-09-23] MEDS: SODIUM CHLORIDE 0.9% 1000ML 1,000 ML IV SCH (19:57)
[2018-09-24] MEDS: SODIUM CHLORIDE 0.9% 1000ML 1,000 ML IV SCH ×2 (02:57→18:57)
[2018-09-24] MEDS: ARTIFICIAL TEARS OP SCH ×3 (05:53→08:11)
[2018-09-24] MEDS ORDERED: CEFAZOLIN 2000MG 2,000 MG/15 ML SYR IV SCH (06:00)
[2018-09-24] MEDS: HYDROCODONE/ACETAMINOPHEN 10/325 TAB PO PRN ×2 (06:36→18:57)
[2018-09-24] MEDS: LISINOPRIL 40 MG TAB PO SCH (07:52)
[2018-09-24] MEDS: NICOTINE 14 MG/24 HR PATCH TD SCH (07:52)
--- NOTE | 2018-09-24 08:33 | Anesthesiology Consultation ---
Date of Service September 24, 2018 Assessment & Plan (1) Encounter for pre-operative examination: Chart Review Chart Review: Acceptable Risk for Surgery and Patient NOT seen in Pre Admission Testing Consults Requested none medicine is following patient History Surgery Operation Date: 09/24/18 12:30 Proposed Procedures p Left Intramedullary Gilson Femur - Dat Pierre MD Height/Weight Height: 5 ft 10 in Weight: 85 kg Allergies Allergy/AdvReac Type Severity Reaction Status Date / Time morphine Allergy Unknown Hives, Verified 11/09/17 17:25 Shakes Medications Home Medications Medication Instructions Recorded Confirmed Last Taken alendronate 70 mg PO DAILY 03/26/18 09/23/18 Unknown aspirin 81 mg PO DAILY 03/26/18 09/23/18 09/23/18 carboxymethylcellulose sodium 1 drops OP Q1H #12 ml 03/26/18 09/23/18 09/23/18 [Refresh Contacts eye drops] hydrocodone-acetaminophen 1 tab PO Q6H PRN 03/26/18 09/23/18 09/23/18 metformin 1,000 mg PO BID 03/26/18 09/23/18 09/23/18 lisinopril 40 mg PO DAILY 09/23/18 09/23/18 09/23/18 meloxicam 15 mg PO DAILY PRN 09/23/18 09/23/18 09/23/18 Active Medications Generic Name Dose Route Start Last Admin Trade Name Freq PRN Reason Stop Dose Admin Hydrocodone Bitart/Acetaminophen 1 tab 09/23/18 14:45 09/24/18 06:36 [place] 10/325 PO 10/07/18 14:44 1 tab Q6H PRN Administration Pain Artificial Tears 1 drops 09/24/18 09:00 09/24/18 08:11 Artificial Tears OP 10/24/18 08:59 Not Given QAM SANAM Sodium Chloride 1,000 mls @ 75 mls/hr 09/23/18 14:45 09/24/18 02:57 Nss 1000ml IV 10/23/18 14:44 75 mls/hr .[id number] SANAM Administration Lisinopril 40 mg 09/24/18 09:00 09/24/18 07:52 Zestril PO 10/24/18 08:59 40 mg DAILY SANAM Administration Miscellaneous 1 ea 09/23/18 21:00 09/23/18 20:35 Remove Nicoderm Patch N/A 10/23/18 20:59 Not Given HS SANAM Nicotine 14 mg 09/23/18 18:00 09/24/18 07:52 Nicoderm Cq TD 10/23/18 17:59 Not Given QAM SANAM Ondansetron HCl 4 mg 09/23/18 14:33 09/23/18 21:14 Zofran IV 10/23/18 14:32 4 mg Q6H PRN Administration Nausea/Vomiting NPO Date Last Intake of Fluids: 09/24/18 Time Last Intake of Fluids: 00:00 Date Last Intake of Solids: 09/23/18 Time Last Intake of Solids: 23:00 Past Medical History Medical History Hypertension Chronic lumbar pain Chronic lymphoid leukemia Diabetes Hyponatremia Past Family History Family History Other No significant family history Past Surgical History Surgical History History of back surgery Social History Smoking Status: Current every day smoker tobacco type: cigarettes Do You Dip or Chew Tobacco: No Hx Alcohol Use: No Hx Substance Use: No Physical Exam Vital Signs Last Vital Signs Temp 36.8 C 09/24/18 07:12 Pulse 83 09/24/18 07:12 Resp 16 09/24/18 07:12 BP 106/67 09/24/18 07:12 Pulse Ox 94 09/24/18 07:12 Testing Electrocardiogram Date: 09/23/18 Findings: + NSR @ (88) and + RBBB (incomplete) Chest X-Ray Date: 09/23/18 XR chest 1V portable CLINICAL HISTORY: femur fx trauma COMPARISON STUDY: 03/26/2018 FINDINGS: Mildly dense. Mediastinal fullness felt to be secondary to the AP portable technique. Lungs are clear. Diaphragms are smooth. Several old left sided rib fractures. IMPRESSION: No acute process. The above report was generated using voice recognition software. It may contain grammatical, syntax or spelling errors. Electronically signed by: Dhaval Mota M.D. 09/23/2018 1:05 PM Other Testing Laboratory Tests 01/10/17 11/10/17 09/23/18 07:55 05:16 12:41 WBC 16.08 H Hgb 12.8 L Hct 36.2 L Plt Count 269 PT INR APTT Sodium Potassium Chloride Carbon Dioxide BUN Creatinine Glucose Hemoglobin A1c 6.3 H TSH 1.050 09/23/18 09/23/18 12:41 12:41 WBC Hgb Hct Plt Count PT 10.0 INR 1.0 APTT 24.5 Sodium 132 L Potassium 3.9 Chloride 100 Carbon Dioxide 25 BUN 13 Creatinine 0.88 Glucose 94 Hemoglobin A1c TSH
[2018-09-24] MEDS ORDERED: ASPIRIN 81 MG ECTAB PO SCH (09:00)
--- NOTE | 2018-09-24 10:51 | Orthopedic Progress Note ---
Date of Service September 24, 2018 Assessment & Plan (1) Femur fracture, left: Continue n.p.o. status. He will be taken to the operating room later this morning for IM nail placement. Subjective Patient is seen in his room this morning. He states he is having minimal pain at the moment. He remains bedridden. He has been n.p.o. overnight. He is anticipating surgery later this morning. He states that he would like to be out of the hospital before the weekend. No chest pain, shortness of breath, abdominal pain, nausea, or vomiting. Physical Exam Physical Exam: General: Well-developed elderly white male in no acute distress. Laying on his bed. Alert, oriented, and conversive. Skin: Warm and dry with good turgor. No rashes. No open wounds. Mild edema present mid thigh. Musculoskeletal: Range of motion of the left hip and knee were not checked. Intact motor function to the toes. Neurologic: Gross sensation is intact across the left leg by soft touch. Results & Data Vital Signs (Past 12 Hours) Vital Signs Temp Pulse Resp BP Pulse Ox 09/24/18 07:12 36.8 C 83 16 106/67 94 09/23/18 23:02 36.8 C 89 14 112/61 96 (1) Femur fracture, left Encounter type: initial encounter Femur location: unspecified portion of femur Fracture morphology: unspecified fracture morphology Fracture type: closed Qualified Code(s): S72.92XA - Unspecified fracture of left femur, initial encounter for closed fracture
[2018-09-24] MEDS: TRAMADOL HCL 50 MG TABLET PO PRN ×2 (11:40→23:24)
[2018-09-24] MEDS ORDERED: MIDAZOLAM HCL 1 MG/ML 2ML VIAL ONE (12:41)
[2018-09-24] MEDS ORDERED: ATROPINE SULFATE 0.1 MG/ML 10ML SYR IV PRN (12:53)
[2018-09-24] MEDS ORDERED: ONDANSETRON INJ 2 MG/ML 2 ML VIAL IV PRN (12:53)
[2018-09-24] MEDS ORDERED: ePHEDrine sulfate 50 MG/ML AMP IV PRN (12:53)
[2018-09-24] MEDS ORDERED: BUPIVACAINE 0.5 % 5 MG/1 ML PF 10ML VIAL ONE (13:09)
[2018-09-24] MEDS ORDERED: HYDROmorphone INJ 2 MG/ML SYR/VIAL ONE ×2 (13:14→14:51)
[2018-09-24] MEDS ORDERED: fentaNYL citrate 100 MCG/2 ML VIAL ONE (13:15)
[2018-09-24] MEDS ORDERED: LIDOCAINE HCL 2% 2 ML VIAL/AMP(20MG/ML) INFIL ONE (14:34)
[2018-09-24] MEDS ORDERED: PROPOFOL IV EMULSION 10 MG/ML 20 ML VIAL IV ONE (14:34)
[2018-09-24] MEDS ORDERED: ONDANSETRON INJ 2 MG/ML 2 ML VIAL ONE (14:34)
[2018-09-24] MEDS ORDERED: ePHEDrine sulfate 50 MG/ML SYR ONE (14:34)
--- NOTE | 2018-09-24 15:58 | Fluoroscopy Report ---
FL femur LT 2V CLINICAL HISTORY: LEFT FEMUR IM NAIL COMPARISON STUDY: Left femur 09/23/2018. FLUOROSCOPY TIME: 2 minutes and 52 seconds. FINDINGS: 5 fluoroscopic spot images of the left femur demonstrate an intramedullary traci with an inte rlocking femoral neck pain and distal interlocking screws traversing the mid shaft fracture. The hard harrison appears intact. The alignment appears anatomic. IMPRESSION: Fluoroscopy provided for internal fixation of a left femur fracture. Electronically signed by: Ricky Raman M.D. 09/24/2018 3:57 PM
[2018-09-24] MEDS ORDERED: SOD PHOSPHATE/SOD BIPHOSPHATE ENEMA 132 ML BTL PR PRN (16:25)
[2018-09-24] MEDS ORDERED: MAGNESIUM HYDROXIDE SUSP 30 ML UDC PO PRN (16:25)
[2018-09-24] MEDS ORDERED: NALOXONE HCL 0.4 MG/1 ML VIAL/CARP IV PRN (16:25)
[2018-09-24] MEDS ORDERED: BISACODYL 10 MG SUPP PR PRN (16:25)
--- NOTE | 2018-09-24 16:25 | Operative Report ---
Post Operative Report Pre & Post Diagnosis Operation Date: 09/24/18 12:30 Pre-Op Diagnosis: Displaced Left Femur Fracture Post-Op Diagnosis: Displaced Left Femur Fracture Procedure Operation Date: 09/24/18 12:30 Actual Procedures p Left Intramedullary Gilson Femur(Left) - Dat Pierre MD Surgeon Dat Pierre MD Machine Molder Squeeze Naman Carrillo and Amelia Arriola Estimated Blood Loss 75 Findings Consistent with Post-Op Diagnosis Specimens None Drains None Anesthesia Type General Complications none Disposition Accompanied Patient To Recovery: No Disposition: Recovery Room Indications Patient 63 years old. Fell mowing the grass yesterday and sustained a left proximal femur fracture. He is on alendronate. It is possible that this could be a atypical femur fracture related to bisphosphonate use. Medicine has been consulted. He is a smoker and the negative effects of smoking upon his health and wound healing and fracture healing are discussed and smoking cessation has b een recommended. Description of Procedure Informed consent obtained. Patient identified. He identified the operative site as the left femur. I marked with my initials. Preop surgical timeout performed. Preop dose of IV antibiotics given. He was positioned on the fracture table with the right leg held in just under 90 degrees flexion and physiologic abduction. Padded perineal post. The leg was placed into longitudinal traction with a padded boot. Fluoroscopic guidance was utilized to assess fracture reduction. There was slight valgus alignment and anterior displacement of the proximal fragment which could be corrected. The leg was prepped and draped in usual sterile fashion per DVT prophylaxis with SCDs and postoperatively with Lovenox. Fluoroscopic guidance utilized. 5 cm incision was made just proximal to the greater trochanter. Electrocautery was utilized onto the subcutaneous tissues until the greater trochanter was iden tified. A guidepin was inserted and adjusted x1 to be in the appropriate position. This was then overreamed with the 17 mm reamer. A bent tip guidewire was passed down the shaft of the femur and under fluoroscopic guidance was passed on the third attempt. Intramedullary location confirmed distally in both the AP and lateral views. Gilson length determined. Reaming then began at 9 proceeded up to 12.5 holding the fracture reduced. An 11 x 420 mm trocar needle was inserted. It was fully seated. Anteversion was determined and through an accessory proximal incision a guidepin was inserted into the center center position of the femoral head adjusted x1. Measuring and reaming was performed and the spiral blade was inserted locked in the proximal apparatus removed. Traction was relieved from the femur which was then impacted resulting in anatomic alignment of this oblique fracture with good cortical contact. 2 distal interlocking screws were inserted one static and the other dynamic. This was done using the perfect chickaloon technique. Femoral anteversion was about 15 to 20 degrees on the fluoroscope. Straight Truck Driver images were obtained. Wounds were irrigated. The distal to inc isions were closed with 2-0 Vicryl and mauro. The proximal incision was closed with #1 Vicryl for the gluteal fascia and subcutaneous tissues. 2-0 Vicryl and mauro. Leg was cleaned with wet and dry sponges and a soft sterile dressing was applied. Patient taken off the fracture table and onto the hospital bed. He was taken to the recovery room in stable condition. There were no specimens or complications. Counts were correct. Blood loss was 75 cc. At the conclusion the operation I spoke to patient's family and discussed with the my findings and give detailed postoperative instructions. Stop smoking. Toe-touch weightbearing. We talked about rehab. Postop antibiotics and Lovenox for DVT prophylaxis. The spiral blade was 105 mm in length and was centimeter from the subchondral bone in both the AP and lateral views in the center center position of the head. I attest to the content of the Intraoperative Record and any orders documented therein. Any exceptions are noted below.
[2018-09-24] MEDS: fentaNYL citrate 100 MCG/2 ML VIAL IV PRN ×2 (16:30→16:35)
--- NOTE | 2018-09-24 16:31 | Operative Report ---
Post Operative Report Pre & Post Diagnosis Operation Date: 09/24/18 12:30 Pre-Op Diagnosis: Displaced Left Femur Fracture Post-Op Diagnosis: Displaced Left Femur Fracture Procedure Operation Date: 09/24/18 12:30 Actual Procedures p Left Intramedullary Gilson Femur(Left) - Dat Pierre MD Surgeon Dat Pierre Tuckpointer Naman Carrillo and Amelia Arriola Estimated Blood Loss 75 Findings Consistent with Post-Op Diagnosis Specimens none Complications none Indications See Dr Pierre operative report for full details. Description of Procedure See Dr Pierre operative report for full details. I was information assistant during entire case to include prepping, draping, limb and instrument handling, wound closure, dressings. I attest to the content of the Intraoperative Record and any orders documented therein. Any exceptions are noted below.
--- NOTE | 2018-09-24 16:50 | Anesthesiology Progress Note ---
Date of Service September 24, 2018 Anesthesia Post Procedure Vital Signs Vital Signs: Temp Pulse Pulse Resp BP Pulse Ox 09/24/18 16:40 78 18 124/73 93 09/24/18 16:30 81 18 125/69 95 09/24/18 16:22 97.0 F L 78 18 119/74 94 09/24/18 13:01 98.4 F 81 18 116/64 96 09/24/18 07:12 98.2 F 83 16 106/67 94 09/23/18 23:02 98.2 F 89 14 112/61 96 09/23/18 21:20 98.1 F 78 122/38 L 96 Pain Intensity Left Leg: Pain Intensity: 4 Transfer of Care Handoff Completed per policy Notes Mental Status: alert / awake / arousable and participated in evaluation Patient Amnestic to Procedure: Yes Nausea / Vomiting: adequately controlled Pain: adequately controlled Airway Patency, RR, SpO2: stable & adequate BP & HR: stable & adequate Hydration State: stable & adequate Anesthetic Complications: no major complications apparent and Pt Satisfied with anesthetic care
[2018-09-24] MEDS: ACETAMINOPHEN 325 MG TAB PO PRN ×2 (17:35→21:57)
[2018-09-24] MEDS: SENNA 8.6 MG TAB PO SCH (20:59)
[2018-09-24] MEDS: CEFAZOLIN 2000MG 2,000 MG/15 ML SYR IV SCH (21:38)
[2018-09-24] MEDS ORDERED: CEFAZOLIN 3000MG/72.5 ML BAG IV SCH (22:00)
[2018-09-25] MEDS: SODIUM CHLORIDE 0.9% 1000ML 1,000 ML IV SCH (06:12)
[2018-09-25] MEDS: CEFAZOLIN 2000MG 2,000 MG/15 ML SYR IV SCH ×2 (06:12→12:45)
[2018-09-25] MEDS: HYDROCODONE/ACETAMINOPHEN 10/325 TAB PO PRN ×3 (06:24→23:22)
[2018-09-25 07:19] LABS: BUN Creatinine Ratio 10.4 (10-20); Calcium 7.7 mg/dl (8.5-10.1); Creatinine Clr Calc Pharmacy 82.7 ml/min; Est GFR (African American) 100.8; Hematocrit (blood only) 31.3 % (42-52); Hemoglobin 10.9 g/dL (14.0-18.0); Mean Corpuscular Hgb Conc 34.8 g/dL (32-36); Mean Corpuscular Volume 84.1 fL (80-100); Mean Platelet Volume 8.8 fL (7.4-10.4); Platelet Count 238 K/uL (130-400); Potassium 3.6 mmol/L (3.5-5.1); RDW Standard Deviation 39.8 fL (36.4-46.3); Red Blood Count 3.72 M/uL (4.7-6.1); White Blood Count 15.77 K/uL (4.8-10.8)
[2018-09-25 08:14] LABS: Basophils # (auto) 0.02 K/uL (0-0.2); Basophils % (auto) 0.1 %; Eosinophils # (auto) 0.11 K/uL (0-0.5); Eosinophils % (auto) 0.7 %; Immature Granulocytes # (auto) 0.06 K/uL (0.00-0.02); Immature Granulocytes % (auto) 0.4 %; Lymphocytes # (auto) 7.17 K/uL (1.2-3.4); Lymphocytes % (auto) 45.5 %; Monocytes # (auto) 1.48 K/uL (0.11-0.59); Monocytes % (auto) 9.4 %; Neutrophils # (auto) 6.93 K/uL (1.4-6.5); Neutrophils % (auto) 43.9 %; Smudge Cells Present
[2018-09-25] MEDS: NICOTINE 14 MG/24 HR PATCH TD SCH (09:09)
[2018-09-25] MEDS: ARTIFICIAL TEARS OP SCH (09:09)
[2018-09-25] MEDS: ENOXAPARIN INJ 30 MG/0.3 ML SYR SQ SCH ×2 (09:09→21:36)
[2018-09-25] MEDS: LISINOPRIL 40 MG TAB PO SCH (09:10)
--- NOTE | 2018-09-25 09:41 | Anesthesiology Progress Note ---
Date of Service September 25, 2018 Anesthesia Post Procedure Vital Signs Vital Signs: Temp Pulse Resp BP BP Pulse Ox 09/25/18 03:15 37.1 C 87 15 106/58 L 94 09/24/18 23:38 36.8 C 91 H 16 92/59 L 97/60 L 95 09/24/18 20:20 36.7 C 105 H 16 102/61 98 09/24/18 19:12 36.6 C 103 H 17 123/63 95 09/24/18 18:16 36.7 C 88 16 114/63 95 09/24/18 17:42 36.4 C L 87 16 101/64 96 09/24/18 17:39 36.5 C 83 18 110/65 95 09/24/18 17:00 79 18 116/66 95 09/24/18 16:50 36.5 C 77 18 113/62 93 09/24/18 16:40 78 18 124/73 93 09/24/18 16:30 81 18 125/69 95 09/24/18 16:22 36.1 C L 78 18 119/74 94 09/24/18 13:01 36.9 C 81 18 116/64 96 Pain Intensity Left Leg: Pain Intensity: 0 Head: Pain Intensity: 0 Right Hip: Pain Intensity: 0 Notes Mental Status: alert / awake / arousable Patient Amnestic to Procedure: Yes Nausea / Vomiting: adequately controlled Pain: adequately controlled Airway Patency, RR, SpO2: stable & adequate BP & HR: stable & adequate Hydration State: stable & adequate Anesthetic Complications: no major complications apparent
--- NOTE | 2018-09-25 09:42 | Orthopedic Progress Note ---
Date of Service September 25, 2018 Assessment & Plan (1) S/P ORIF (open reduction internal fixation) fracture: PT/OT this AM WBAT with walker assistance Ice with EZ wrap Keep dressings intact Pain control with PO and IV meds DVT prophy with Lovenox Will relay findings with Dr. Pierre and he will see later today Subjective Patient is seen in his room this morning. He states he is having no pain at the moment. Has yet to see PT/OT today. State that his leg feels much better. [place] chest pain, shortness of breath, abdominal pain, nausea, or vomiting, fever, chills, sweats or lethargy. Review of Systems Review of Systems: All systems reviewed & are unremarkable except as noted in HPI & below Physical Exam Physical Exam: Left Leg: dressings clean, dry and intact. ROM at knee from 0-45 degrees. Minimal TTP over dressings. Calf soft and supple. NV intact. Passive SLRT elicits no pain. post tib 1+ up w PT, awaiting disposition, pt seen and examined, PSS Results & Data Vital Signs (Past 12 Hours) Vital Signs Temp Pulse Resp BP BP Pulse Ox 09/25/18 03:15 37.1 C 87 15 106/58 L 94 09/24/18 23:38 36.8 C 91 H 16 92/59 L 97/60 L 95 Laboratory Results 09/25/18 09/25/18 09/25/18 Range/Units 08:14 06:32 06:32 WBC 15.77 H (4.8-10.8) K/uL RBC 3.72 L (4.7-6.1) M/uL Hgb 10.9 L (14.0-18.0) g/dL Hct 31.3 L (42-52) % MCV 84.1 (80-100) fL MCH 29.3 (25-34) pg MCHC 34.8 (32-36) g/dL RDW Std Deviation 39.8 (36.4-46.3) fL RDW Coeff of Maury 13.0 (11.5-14.5) % Plt Count 238 (130-400) K/uL MPV 8.8 (7.4-10.4) fL Immature Gran % (Auto) 0.4 % Neut % (Auto) 43.9 % Lymph % (Auto) 45.5 % [place] % (Auto) 9.4 % Eos % (Auto) 0.7 % Baso % (Auto) 0.1 % Immature Gran # (Auto) 0.06 H (0.00-0.02) K/uL Neut # (Auto) 6.93 H (1.4-6.5) K/uL Lymph # (Auto) 7.17 H (1.2-3.4) K/uL [place] # (Auto) 1.48 H (0.11-0.59) K/uL Eos # (Auto) 0.11 (0-0.5) K/uL Baso # (Auto) 0.02 (0-0.2) K/uL Smudge Cells Present Sodium 133 L (136-145) mmol/L Potassium 3.6 (3.5-5.1) mmol/L Chloride 101 (98-107) mmol/L Carbon Dioxide 27 (21-32) mmol/L Anion Gap 5.0 (3-11) BUN 10 (7-18) mg/dl Creatinine 0.92 (0.6-1.4) mg/dl Est Cr Clr Drug Dosing 82.7 ml/min Est GFR ( Amer) 100.8 Est GFR (Non-Af Amer) 87.0 BUN/Creatinine Ratio 10.4 (10-20) Glucose 125 H (70-99) mg/dl POC Glucose 134 H (70-99) Calcium 7.7 L (8.5-10.1) mg/dl 09/24/18 09/24/18 09/24/18 Range/Units 20:43 17:28 16:29 WBC (4.8-10.8) K/uL RBC (4.7-6.1) M/uL Hgb (14.0-18.0) g/dL Hct (42-52) % MCV (80-100) fL MCH (25-34) pg MCHC (32-36) g/dL RDW Std Deviation (36.4-46.3) fL RDW Coeff of [place]ury (11.5-14.5) % Plt Count (130-400) K/uL MPV (7.4-10.4) fL Immature Gran % (Auto) % Neut % (Auto) % Lymph % (Auto) % [place] % (Auto) % Eos % (Auto) % Baso % (Auto) % Immature Gran # (Auto) (0.00-0.02) K/uL Neut # (Auto) (1.4-6.5) K/uL Lymph # (Auto) (1.2-3.4) K/uL [place] # (Auto) (0.11-0.59) K/uL Eos # (Auto) (0-0.5) K/uL Baso # (Auto) (0-0.2) K/uL Smudge Cells Sodium (136-145) mmol/L Potassium (3.5-5.1) mmol/L Chloride (98-107) mmol/L Carbon Dioxide (21-32) mmol/L Anion Gap (3-11) BUN (7-18) mg/dl Creatinine (0.6-1.4) mg/dl Est Cr Clr Drug Dosing ml/min Est GFR ( Amer) Est GFR (Non-Af Amer) BUN/Creatinine Ratio (10-20) Glucose (70-99) mg/dl POC Glucose 153 H 126 H 134 H (70-99) Calcium (8.5-10.1) mg/dl 09/24/18 Range/Units 11:58 WBC (4.8-10.8) K/uL RBC (4.7-6.1) M/uL Hgb (14.0-18.0) g/dL Hct (42-52) % MCV (80-100) fL MCH (25-34) pg MCHC (32-36) g/dL RDW Std Deviation (36.4-46.3) fL RDW Coeff of Maury (11.5-14.5) % Plt Count (130-400) K/uL MPV (7.4-10.4) fL Immature Gran % (Auto) % Neut % (Auto) % Lymph % (Auto) % [place] % (Auto) % Eos % (Auto) % Baso % (Auto) % Immature Gran # (Auto) (0.00-0.02) K/uL Neut # (Auto) (1.4-6.5) K/uL Lymph # (Auto) (1.2-3.4) K/uL [place] # (Auto) (0.11-0.59) K/uL Eos # (Auto) (0-0.5) K/uL Baso # (Auto) (0-0.2) K/uL Smudge Cells Sodium (136-145) mmol/L Potassium (3.5-5.1) mmol/L Chloride (98-107) mmol/L Carbon Dioxide (21-32) mmol/L Anion Gap (3-11) BUN (7-18) mg/dl Creatinine (0.6-1.4) mg/dl Est Cr Clr Drug Dosing ml/min Est GFR ( Amer) Est GFR (Non-Af Amer) BUN/Creatinine Ratio (10-20) Glucose (70-99) mg/dl POC Glucose 122 H (70-99) Calcium (8.5-10.1) mg/dl
--- NOTE | 2018-09-25 15:17 | XRay Report ---
XR femur LT 2V routine HISTORY: 63 years-old Male fracture acute femoral diaphyseal fracture COMPARISON: Left hip radiographs 09/23/2018 TECHNIQUE: 2 views of the left femur FINDINGS: Status post placement of an intratrochanteric nail with elongated medullary traci and 2 distal cannulat ed screws fixating the previously described proximal to mid femoral diaphyseal fracture. There is imp roved alignment with persistent 8 mm volar displacement and 6 mm medial displacement. Additionally, t here is mild apex volar angulation of approximately 6 degrees. Expected postsurgical soft tissue swel ling and deep tissue air with lateral skin mauro. Degenerative changes of the left hip and knee. IMPRESSION: Status post ORIF of the previously described left femoral diaphyseal fracture which demonstrates impr jr alignment. Mild persistent angulation and displacement as above. The above report was generated using voice recognition software. It may contain grammatical, syntax o r spelling errors. Electronically signed by: Sean Pickett M.D. 09/25/2018 3:16 PM
[2018-09-25] MEDS: TRAMADOL HCL 50 MG TABLET PO PRN ×2 (17:37→21:35)
[2018-09-25] MEDS: SENNA 8.6 MG TAB PO SCH (21:35)
[2018-09-26] MEDS: ARTIFICIAL TEARS OP SCH (07:34)
[2018-09-26] MEDS: ENOXAPARIN INJ 30 MG/0.3 ML SYR SQ SCH (07:34)
[2018-09-26] MEDS: LISINOPRIL 40 MG TAB PO SCH (07:35)
[2018-09-26] MEDS: NICOTINE 14 MG/24 HR PATCH TD SCH (07:35)
[2018-09-26] MEDS: HYDROCODONE/ACETAMINOPHEN 10/325 TAB PO PRN ×2 (07:35→13:46)
[2018-09-26] MEDS: TRAMADOL HCL 50 MG TABLET PO PRN (12:13)
[2018-09-26] MEDS ORDERED: POLYETHYLENE (MIRALAX) 17 GM PACK PO SCH (18:00)
[2018-09-29] MEDS ORDERED: ALENDRONATE SODIUM 70 MG TAB PO SCH (06:30)
--- NOTE | 2018-09-29 09:08 | Discharge Summary ---
Date of Service September 29, 2018 Admission HPI Per Admitting Provider This 63 yo M is seen today in ED after sustaining a left upper leg injury. Patient was mowing his law earlier today, got too close to an embankment, fell down the hill and struck his left leg off of a patio table. Patient states that he had an obvious deformity of the left lower extremity and had his call EMS. Patient was placed into a traction splint before being transferred to the hospital. Patient denies any head or neck trauma. He denies CP, SOB, nausea, vomiting, LOC, headache, fever, chills or sweat. His only complaint is of pain to his mid femur where "the bone is pushing out." Discharge Data Consultations 09/23/18 13:31 ED Decision to Admit Stat 09/23/18 14:33 Consult Case Management - Discharge Planning Routine Consult Internal Medicine Routine 09/24/18 16:25 Consult Case Management - Discharge Planning Routine Procedures Performed Operation Date: 09/24/18 12:30 Actual Procedures p Left Intramedullary Gilson Femur(Left) - Dat Pierre MD Hospital Course (1) Femur fracture, left: Patient was admitted to [facility] on 09/23/18 after sustaining a fall while mowing the grass. He injured his left leg after falling down an embankment. He was brought to the ED with an obvious deformity left leg. X-rays were taken he was found to have a displaced left femur fracture. Orthopedics was consulted for evaluation and management of the fracture. He was seen and evaluated, surgical intervention recommended. He was scheduled for open reduction internal fixation left femur fracture with Dr. Pierre on 09/24. Risks and complications of the procedure were discussed with the patient, he agreed to proceed with surgery, informed consent obtained. He was cleared by medicine prior to surgery. On 09/24/18 he underwent and open reduction internal fixation left femur fracture with Dr. Pierre, assisted by Amelia Arriola PA-C. Procedure was done with general anesthesia, he was given 2gm of IV Ancef prior to the procedure and this was continued for 24 hours after surgery. He tolerated the procedure well without any intra-operative complications. Intra- operative x-rays were obtained to confirm reduction of the fracture and implantation of the hardware. He was allowed out of bed, toe touch weight bearing left lower extremity. No hip precautions were needed. PT and OT were consulted for post operative rehab. SCD's and JAYJAY stockings were used for DVT prophylaxis. On post op day 1, Lovenox 30mg SQ twice daily was started for DVT prophylaxis. He was allowed out of bed as tolerated with assistance of a walker and staff. He did not develop any post operative complications. He did develop acute blood loss anemia, but not transfusions were necessary. He was provided a regular diet after surgery and tolerated well. Ice was applied prn pain and swelling. His dressings were left intact after surgery. On post op day 1 x- rays of his left femur were taken and revealed stable post operative findings with reduction of the fracture. It was recommended for inpatient rehab or prison facility after surgery, but patient was hesitant in doing this, he wanted to go home, referral for [facility] was placed. His insurance would not approve inpatient rehab. No authorization was obtained from his insurance company prior to the holiday weekend. On post operative day [address] by Dr[address] Lambert and was determined safe for discharge to his home with his . He was discharged on pain medication which included tramadol, oxycodone and oral tylenol. He was also discharged on Lovenox for DVT prophylaxis. Follow up was given to see Dr. Pierre in approximately 2 weeks. He was discharged with in home nursing and physical therapy. All questions were answered. He was dis charged to his home in stable condition on 09/26/18. Discharge Instructions as per EMR
== END 2018-09-26 13:50 | disposition home health service (06) | DRG 481 ==
LOC: ED 12:26 → 3N 14:33
DX: S72.322A Displaced transverse fracture of shaft of left femur, initial encounter for closed fracture; D62 Acute posthemorrhagic anemia; Y93.H2 Activity, gardening and landscaping; W17.81XA Fall down embankment (hill), initial encounter; Y92.096 Garden or yard of other non-institutional residence as the place of occurrence of the external cause; Z79.84 Long term (current) use of oral hypoglycemic drugs; W22.09XA Striking against other stationary object, initial encounter; Z88.0 Allergy status to penicillin; E11.9 Type 2 diabetes mellitus without complications; Z79.1 Long term (current) use of non-steroidal anti-inflammatories (NSAID); Z79.899 Other long term (current) drug therapy; F17.210 Nicotine dependence, cigarettes, uncomplicated; Z79.891 Long term (current) use of opiate analgesic; I10 Essential (primary) hypertension; G89.29 Other chronic pain; Z79.82 Long term (current) use of aspirin; M54.5 Low back pain; Z79.83 Long term (current) use of bisphosphonates; M81.0 Age-related osteoporosis without current pathological fracture; Z88.5 Allergy status to narcotic agent; C91.10 Chronic lymphocytic leukemia of B-cell type not having achieved remission

== ENCOUNTER 2023-03-05 13:40 | Inpatient (IN) ==
[2023-03-05 15:08] LABS: Basophils # (auto) 0.05 K/uL (0.00-0.20); Basophils % (auto) 0.4 %; Eosinophils # (auto) 0.05 K/uL (0.00-0.50); Eosinophils % (auto) 0.4 %; Immature Granulocytes # (auto) 0.07 K/uL (0.01-0.20); Immature Granulocytes % (auto) 0.5 %; Lymphocytes # (auto) 2.39 K/uL (1.20-3.40); Lymphocytes % (auto) 17.2 %; Mean Corpuscular Hemoglobin 27.8 pg (25.0-34.0); Mean Corpuscular Hgb Conc 33.3 g/dL (32.0-36.0); Mean Corpuscular Volume 83.3 fL (80.0-100.0); Mean Platelet Volume 9.6 fL (9.4-12.4); Monocytes # (auto) 0.76 K/uL (0.11-0.59); Monocytes % (auto) 5.5 %; Neutrophils # (auto) 10.61 K/uL (1.40-6.50); Platelet Count 347 K/uL (130-400); RDW Coefficient of Variation 13.4 % (11.5-14.5); Red Blood Count 3.96 M/uL (4.70-6.10); White Blood Count 13.93 K/ul (4.8-10.8)
[2023-03-05 15:30] LABS: Partial Thromboplastin Ratio 0.9; Prothrombin Time 11.4 Seconds (9.0-12.0)
--- NOTE | 2023-03-05 15:30 | Emergency Department Note ---
Impression & Plan Closed compression fracture of thoracic vertebra, Compression fx, lumbar spine, Metastatic primary lung cancer, Hypercalcemia, Hypokalemia, Elevated troponin I level ED Provider Note NAME: JAYY ALVAREZ AGE: 68 SEX: M : 1955 ARRIVES VIA: Walk-In INFORMANT: Patient, the patient's significant other ED PROVIDER(S): Brodie Haskins DO CHIEF COMPLAINT: Back pain HPI: The patient is a 68-year-old male who presented to the emergency department at the request of his primary oncologist for an evaluation of back pain. The patient has a history of metastatic lung cancer. He has been taking his pain medication at home. He has developed swelling in his legs as well as his upper extremities. He denies having any abdominal pain. He denies having any chest pain. He called Dr. Almeida's office and was referred to the emergency department. ROS: See above HPI for pertinent positives & negatives. A total of 10 systems reviewed and were otherwise negative. PAST MEDICAL HISTORY: See Below PAST SURGICAL HISTORY: See Below FAMILY HISTORY: See Below SOCIAL HISTORY: See Below HOME MEDICATIONS: See Below ALLERGIES: See Below VITALS: See Below PHYSICAL EXAMINATION: GENERAL: The patient is listless and slow to respond to questioning. EYES: The conjunctivae are clear. The pupils are round and reactive. EARS, NOSE, MOUTH AND THROAT: The nose is without any evidence of any deformity. Mucous membranes are moist. NECK: The neck is nontender and supple. RESPIRATORY: Diminished breath sounds are noted throughout. CARDIOVASCULAR: Regular rate and rhythm noted there no murmurs rubs or gallops normal S1 normal S2. GASTROINTESTINAL: The abdomen is soft. Abdomen is nontender. BACK: Midline tenderness was noted in the thoracic spine. MUSCULOSKELETAL/EXTREMITIES: There is no evidence of gross deformity full range of motion is noted in the hips and shoulders. SKIN: Skin is warm and dry. Pedal edema was noted bilaterally. NEUROLOGIC: Patient is awake and oriented x3 MEDICAL DECISION MAKING: The patient is a 68-year-old male who has a history of metastatic lung cancer who presented to the emergency department for an evaluation of pain. The patient was complaining of more pain than usual. There was no reported fall. He does have back pain. The patient was treated with pain medication in the emergency department. He was also treated with IV fluids. He was treated with medication to treat his hypercalcemia as well as his hypokalemia. I discussed the patient's laboratory and radiographic studies with him. I discussed his condition with the on-call [facility] hospitalist. They have agreed to evaluate the patient in the emergency department for further management and disposition. Triage Nursing notes reviewed. Prior medical records reviewed Vital Signs: reviewed and remarkable for no significant abnormalities Differential diagnosis: Infection, dehydration, metabolic abnormality, hypo/hyperglycemia, electrolyte disturbance, anemia, hypoxia, cardiac sources, intracerebral event, toxicologic, neurologic, as well as other pathologies. ER treatment provided: See below Diagnostics interpreted by me: ECG: EKG was obtained in the emergency department. My interpretation is normal sinus rhythm at 90 bpm. There was a PAC noted. There was nonspecific ST segment abnormalities noted. This was compared to a tracing from September 23, 2018. No changes were noted Cardiac Monitoring: An order was placed for continuous cardiac monitoring. The monitor shows a rate of 67 bpm with sinus rhythm. Laboratory studies: As stated above and show below. Imaging studies: See below. 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 pylori infection hx of 2020 > resolved Hx MRSA infection in elbow wound several yrs ago > resolved Hypertension Lyme disease several yrs ago Osteoarthritis Osteoporosis Smoker Surgical History History of back surgery HAD FX AND FUSION OF LUMBAR History of bronchoscopy History of cataract surgery bilat History of colonoscopy History of esophagogastroduodenoscopy (EGD) History of incision and drainage right elbow 11/11/17 LMA#5. History of open reduction and internal fixation (ORIF) procedure x3--LEFT LEG FEMUR HAS DEVYN 09/25/18 LMA#5. History of right inguinal hernia repair 06/08/19 LMA#5. History of tonsillectomy Hx of shoulder surgery left Hx of vasectomy Family History Mother Family history of diabetes mellitus Other No family history of adverse response to anesthesia Social History Smoking Status: Current every day smoker Tobacco Type: Cigarettes Cigarettes Per Day: <1 ppd; Second Hand Exposure: No; Do You Dip or Chew Tobacco: Yes; Hx Alcohol Use: Yes Alcohol type: beer Hx Substance Use: No Preferred Language: Cameroonian Communication Ability: Effective Visual Impairment: No Limitations Hearing Ability: Hard of Hearing Frozen Meat Cutter Required: No Beliefs That Will Affect Care: None marital status: Current Living Situation: Spouse current occupational status: retired Other Information That Helps Us Care for You: No Feels Safe at Home: Yes Safety Concerns: Feels Safe At This Time during the past year weight has: decreased > 10 lbs Assistive Devices: Cane and Glasses Allergies Allergies Allergy/AdvReac Type Severity Reaction Status Date / Time morphine Allergy Intermediate Hives, Verified 03/05/23 17:09 [employer] [facility] Management Home Meds Home Medications Medication Instructions Recorded Confirmed alendronate 70 mg tablet (Fosamax) 70 mg PO WK 03/26/18 03/05/23 aspirin 81 mg tablet,delayed 81 mg PO QAM 03/26/18 03/05/23 release metformin 1,000 mg tablet 1,000 mg PO QAM 03/26/18 03/05/23 calcium carbonate 500 mg-vitamin 1 tab PO QAM 05/14/19 03/05/23 D3 5 mcg (200 unit) tablet (Calcium 500 + D) cyanocobalamin (vitamin B-12) 1,000 mcg PO QAM 05/14/19 03/05/23 1,000 mcg tablet (Vitamin B-12) lisinopril 40 mg tablet (Zestril) 20 mg PO QAM 05/14/19 03/05/23 docusate sodium 100 mg capsule 100 mg PO DAILY PRN Constipation 06/08/19 03/05/23 (Colace) fentanyl 75 mcg/hr transdermal 1 patch transdermal Q72H 07/18/22 03/05/23 patch ferrous sulfate 325 mg (65 mg 325 mg PO QAM 07/18/22 03/05/23 iron) tablet (Iron (ferrous sulfate)) acetaminophen 325 mg tablet 650 mg PO Q8 PRN Pain 09/09/22 03/05/23 multivitamin 1 tab PO QAM 09/09/22 03/05/23 ascorbic acid (vitamin C) 1,000 mg 1 g PO QAM 03/05/23 03/05/23 tablet (Vitamin C) Previous Rx's Medication Instructions Recorded oxycodone 10 mg tablet 10 mg PO Q4H PRN pain #60 tabs 10/15/22 Results & Data (ED) Vital Signs Vital Signs - 24 hr 03/05/23 14:05 03/05/23 15:56 Temperature 35 C L Temperature Source Oral Pulse Rate 90 Pulse Rate [Left Finger] 76 Respiratory Rate 18 20 Respiratory Effort / Characteristics Non-Labored Spontaneous Respiratory Depth Normal Respiratory Pattern Regular Blood Pressure 154/82 H Blood Pressure [Left Arm] 142/79 H Blood Pressure Mean 106 Blood Pressure Mean [Left Arm] 100 Blood Pressure Position [Left Arm] Sitting Pulse Oximetry 95 98 Oxygen Delivery Method Room Air Sepsis Recent Fever Within 48 Hours No Sepsis New/Unexplained Change in Mental Status N/A Sepsis Action Taken by Nursing No Action Required Home Medications Current Medication List: was personally reviewed by me Laboratory Data Attestation: I reviewed the patient's lab results. 03/05/23 14:46 03/05/23 14:46 Lab Results 03/05/23 03/05/23 03/05/23 Range/Units 14:46 14:46 14:46 WBC 13.93 H (4.8-10.8) K/ul RBC 3.96 L (4.70-6.10) M/uL Hgb 11.0 L (14.0-18.0) g/dl Hct 33.0 L (42.0-52.0) % MCV 83.3 (80.0-100.0) fL MCH 27.8 (25.0-34.0) pg MCHC 33.3 (32.0-36.0) g/dL RDW Std Deviation 41.0 (36.4-46.3) fL RDW Coeff of Maury 13.4 (11.5-14.5) % Plt Count 347 (130-400) K/uL MPV 9.6 (9.4-12.4) fL Immature Gran % (Auto) 0.5 % Neut % (Auto) 76.0 % Lymph % (Auto) 17.2 % [place] % (Auto) 5.5 % Eos % (Auto) 0.4 % Baso % (Auto) 0.4 % Neut # (Auto) 10.61 H (1.40-6.50) K/uL Lymph # (Auto) 2.39 (1.20-3.40) K/uL [place] # (Auto) 0.76 H (0.11-0.59) K/uL Eos # (Auto) 0.05 (0.00-0.50) K/uL Baso # (Auto) 0.05 (0.00-0.20) K/uL Immature Gran # (Auto) 0.07 (0.01-0.20) K/uL PT 11.4 (9.0-12.0) Seconds INR 1.0 (0.9-1.1) APTT 25.0 (21.0-31.0) Seconds PTT Ratio 0.9 Sodium 139 (136-145) mmol/L Potassium 2.5 L* (3.5-5.1) mmol/L Chloride 100 (98-107) mmol/L Carbon Dioxide 31 (21-32) mmol/L Anion Gap 8 (3-11) BUN 19 (6-23) mg/dl Creatinine 1.04 (0.6-1.4) mg/dl Est Cr Clr Drug Dosing 45.1 ml/min Est GFR ( Amer) 83.9 ml/min Est GFR (Non-Af Amer) 72.4 ml/min BUN/Creatinine Ratio 18.3 (10-20) Glucose 97 (70-99(Fasting)) mg/dl Calcium 13.8 H* (8.6-10.3) mg/dl Magnesium 2.0 (1.7-2.4) mg/dl Total Bilirubin 0.8 (0.2-1.0) mg/dl AST 20 (13-39) U/L ALT 8 (7-52) U/L Alkaline Phosphatase 64 (34-104) U/L Troponin I High Sens 56.8 H* (0-20) pg/ml Total Protein 6.5 (6.0-8.3) gm/dl Albumin 3.7 (3.4-5.0) gm/dl Globulin 2.8 (2.5-4.0) gm/dl Albumin/Globulin Ratio 1.3 (0.9-2) TSH 1.709 (0.300-4.500) uIu/ml Administered Medications Potassium Chloride (K John / Wtr) 10 meq in 100 mls @ 100 mls/hr IV Q1H SANAM Stop: 03/05/23 21:59 Last Admin: 03/05/23 20:24 Dose: 100 mls/hr Documented By: Infusion: 03/05/23 19:14 Dose: 100 mls/hr Documented By: Admin: 03/05/23 18:14 Dose: 100 mls/hr Documented By: KLEBER Discontinued Medications Fentanyl Citrate (Fentanyl Citrate Pf 100 Mcg/2 Ml Vial) 50 mcg IV Q15M PRN PRN Reason: Pain Stop: 03/19/23 15:36 Last Admin: 03/05/23 15:53 Dose: 50 mcg Documented By: KLEBER Sodium Chloride (Nss) 500 mls @ 999 mls/hr IV .Q31M ONE Stop: 03/05/23 16:05 Last Infusion: 03/05/23 18:01 Dose: 0 mls/hr Documented By: Admin: 03/05/23 15:52 Dose: 999 mls/hr Documented By: KLEBER Zoledronic Acid 4 mg/ Sodium (Chloride) 105 mls @ 420 mls/hr IV ONE ONE Stop: 03/05/23 15:41 Last Infusion: 03/05/23 18:01 Dose: 0 mls/hr Documented By: Admin: 03/05/23 16:01 Dose: 420 mls/hr Documented By: KLEBER Ondansetron HCl (Ondansetron Inj 2 Mg/Ml 2 Ml Vial) 4 mg IV NOW STA Stop: 03/05/23 15:38 Last Admin: 03/05/23 15:53 Dose: 4 mg Documented By: KLEBER Potassium Chloride (Potassium Chloride 10 Meq Tabcr) 20 meq PO NOW STA Stop: 03/05/23 15:36 Last Admin: 03/05/23 15:54 Dose: 20 meq Documented By: KLEBER Potassium Chloride (Potassium Chloride Crtab 20 Meq Tabcr) 20 meq PO NOW STA Stop: 03/05/23 17:46 Last Admin: 03/05/23 18:15 Dose: 20 meq Documented By: KLEBER Imaging Data Attestation: I personally reviewed and interpreted this imaging study as follows: My Impression: Chest x-ray was obtained in the emergency department. My interpretation is no free air or pneumothorax, final report below. Radiologist's Impression: Chest X-Ray 03/05/23 14:12 XR chest 1V not portable HISTORY: Weakness COMPARISON: Chest 07/24/2022. Chest CT 11/12/2022. FINDINGS: No pneumothorax. Volume loss within the right hemithorax with mild right mediastinal shift and a right basilar airspace opacity. This likely represents right lower lobe collapse. This is new from the prior study. There is a small right pleural effusion. Surgical clips within the left upper quadrant. The left lung is clear. Right paratracheal/mediastinal lymphadenopathy is again noted. There are 2 small nodular densities within the left lung apex measuring up to 7 mm. These are new from the prior study. These could be external to the patient. IMPRESSION: 1. Volume loss within the right hemithorax with mild right mediastinal shift and a right basilar airspace opacity. This likely represents right lower lobe collapse. This is new from the prior study and could be due to mucous plugging. 2. Small right pleural effusion. 3. Right paratracheal/mediastinal lymphadenopathy again noted. ACT 112: Negative or not required by law. Electronically signed by: Ricky Raman M.D. 03/05/2023 4:02 PM Discharge Plan Visit Data Chief Complaint: Back Injury/Pain Stated Complaint: STAGE 3 LUNG CANCER, BACK PAIN ED Provider: Brodie Haskins Discharge Problem: Closed compression fracture of thoracic vertebra, Compression fx, lumbar spine, Metastatic primary lung cancer, Hypercalcemia, Hypokalemia, Elevated troponin I level Patient Disposition: Admitted As Inpatient Discharge Instructions Interventions: ED Discharge Assessment Last Done: 03/05/23 19:04 Closed compression fracture of thoracic vertebra Qualifiers: Encounter type: initial encounter Qualified Code(s): S22.000A - Wedge compression fracture of unspecified thoracic vertebra, initial encounter for closed fracture Compression fx, lumbar spine Qualifiers: Encounter type: initial encounter Lumbar vertebra fracture level: unspecified lumbar vertebra Qualified Code(s): S32.000A - Wedge compression fracture of unspecified lumbar vertebra, initial encounter for closed fracture Metastatic primary lung cancer Qualifiers: Laterality: unspecified laterality Qualified Code(s): C34.90 - Malignant neoplasm of unspecified part of unspecified bronchus or lung
[2023-03-05 15:32] LABS: Albumin Globulin Ratio 1.3 (0.9-2); Albumin Level 3.7 gm/dl (3.4-5.0); BUN Creatinine Ratio 18.3 (10-20); Bilirubin,Total 0.8 mg/dl (0.2-1.0); Calcium 13.8 mg/dl (8.6-10.3); Creatinine Clr Calc Pharmacy 45.1 ml/min; Est GFR (African American) 83.9 ml/min; Est GFR (Non-African American) 72.4 ml/min; Globulin 2.8 gm/dl (2.5-4.0); Potassium 2.5 mmol/L (3.5-5.1); Total Protein 6.5 gm/dl (6.0-8.3); Troponin I High Sensitivity 56.8 pg/ml (0-20)
[2023-03-05] MEDS ORDERED: SODIUM CHLORIDE 0.9% 500 ML IV ONE (15:35)
[2023-03-05] MEDS ORDERED: POTASSIUM CHLORIDE 10 MEQ TABCR PO STA (15:35)
[2023-03-05] MEDS ORDERED: ONDANSETRON INJ 2 MG/ML 2 ML VIAL IV STA (15:37)
[2023-03-05] MEDS ORDERED: fentaNYL citrate PF 100 MCG/2 ML VIAL IV PRN (15:37)
[2023-03-05] MEDS ORDERED: ZOLEDRONIC ACID 4 MG in SODIUM CHLOR 0.9% MINI-B 100 ML IV ONE (15:40)
[2023-03-05 15:47] LABS: Thyroid Stimulating Hormone 1.709 uIu/ml (0.300-4.500)
--- NOTE | 2023-03-05 16:04 | XRay Report ---
XR chest 1V not portable HISTORY: Weakness COMPARISON: Chest 07/24/2022. Chest CT 11/12/2022. FINDINGS: No pneumothorax. Volume loss within the right hemithorax with mild right mediastinal shift and a right basilar airspace opacity. This likely represents right lower lobe collapse. This is new f rom the prior study. There is a small right pleural effusion. Surgical clips within the left upper qu adrant. The left lung is clear. Right paratracheal/mediastinal lymphadenopathy is again noted. There are 2 small nodular densities within the left lung apex measuring up to 7 mm. These are new from the prior study. These could be external to the patient. IMPRESSION: 1. Volume loss within the right hemithorax with mild right mediastinal shift and a right basilar airs pace opacity. This likely represents right lower lobe collapse. This is new from the prior study and could be due to mucous plugging. 2. Small right pleural effusion. 3. Right paratracheal/mediastinal lymphadenopathy again noted. ACT 112: Negative or not required by law. Electronically signed by: Ricky Raman M.D. 03/05/2023 4:02 PM
--- NOTE | 2023-03-05 16:20 | History & Physical Report ---
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 Pt has been reluctant to consider treatment therapies for multiple reasons including financial concerns and issues related to treatment. He was seen by radiation oncology for treatment in September 2022 but declined radiation therapy at that time as well. Palliative care had been consulted and involved in his care at that time as well. He has not met with any of these providers since November. -Found to have hypokalemia of 2.5 and hypercalcemia of 13.8 on admission. ER has started IV fluids and xometa to correct. Pt has significant edema in legs bilaterally, monitor volume status with strict I/Os. - Check CT thoracic and lumbar spine due to acutely worsening pain - concern for pathological vs compression fracture vs metastasis to spine causing increased pain - worsening progression of disease 1. Interval development of a moderate to severe inferior endplate compression fracture at T6 consistent with an acute to subacute fracture. 2. Multiple additional chronic mild endplate compression deformities seen throughout the majority of the thoracic spine remain unchanged. 3. Increase in size in the right mediastinal/paratracheal mass. Multiple scattered pulmonary nodules have also progressed consistent with metastatic disease. 4. There is a small right pleural effusion. 5. Partial mucoid opacification the right lower lobe bronchi with patchy airspace opacities at the right lung base. This may represent an aspiration pneumonitis. 1. Progressive loss of height along the right side of the moderate to severe compression deformity at L2. This favors a subacute to chronic compression fracture. No definite acute fractures within the lumbar spine. 2. Additional chronic compression deformities and postoperative changes within the lumbar spine as described above. - Consult oncology - follows with Dr. Tyler as outpatient - Consult palliative care -we discussed at bedside patient is agreeable to DNR/DNI, was supposed to have outpatient follow-up with oncology this Friday, he is agreeable to more symptom management and quality of life at this time per our discussion - Pulmonology consulted for R hemithorax -Fentanyl 75 mcg, oxycodone 10 mg every 4 hours continue, IV Dilaudid as needed severe breakthrough pain - may require further pain med titration up throughout hospital stay -Bowel regimen with MiraLAX, Dulcolax, Senokot as needed -Troponin noted to be elevated at 56.8 but pt is denying chest pain, no acute EKG changes, will check one more set, no previous troponin to compare to. -Hypokalemia 2.5 on admission, given 20 meq in the ER, add 40 meq IV and additional 20 meq PO now Hypercalcemia Bilateral Lower extremity Edema - Significant edema, 3+ pitting , albumin is normal - Elevate legs, teds, scds - Pt was administered fluids in the ER due to hypercalcemia, monitor, consider lasix administration - nephrology consulted Constipation -Follow, hold iron for now - Bowel regimen DM II - ISS with Accu-Cheks ACHS, check A1C with am lab -Holding metformin -Patient does not check glucose at home Chronic tobacco use COPD -Patient is still smoking 3 cigarettes daily, cessation encouraged -Patient denies need for nicotine patch -Has Proventil inhaler at home, uses this as needed, recently prescribed 1 month ago for viral infection where he completed his prednisone taper and doxycycline 1 week DVT ppx: - teds, scds Lines: 2 PIV GI/FEN: Allow regular diet CODE: DNR/DNI - discussed care and goals with patient and family at bedside. Dispo: From home, likely to remain in the hospital x 1-2 days History of Present Illness Chief Complaint: Back pain Primary Care Provider: Peggy Ashton MD This is a 68yo M with PMhx of tobacco use, COPD, DM II, HTN, elevated PSA, hx of CLL in 2016, microcytic anemia, mediastinal adenopathy upon EUBS was found to have locally advanced Squamous cell carcinoma diagnosed in July 2022, although mediastinal adenopathy and weight loss was initially detected in Mar 2022. Pt has been reluctant to consider treatment therapies for multiple reasons including financial concerns and issues related to treatment. He was seen by radiation oncology for treatment in September 2022 but declined radiation therapy at that time as well. Palliative care had been consulted and involved in his care at that time as well. He has not met with any of these providers since November. Found to have hypokalemia of 2.5 and hypercalcemia of 13.8 on admission. ER has started IV fluids and xometa to correct. He presents today with worsening middle and lower back pain as well as increased swelling of his legs. Patient is having issues with ambulating, uses a cane at baseline, denies any recent falls however family is skeptical. Pt is using oxycodone 10 mg Q4H, and fentanyl patch 75 mcg at baseline. He states his fentanyl was increased in November up to 100 mcg however was very somnolent and slept during the majority of the day, so was reduced back down to 75 mcg. He notes increasing edema in bilateral legs over the past 2 weeks, significant swel ling is nearly up to his knees. He is wearing socks because shoes do not fit anymore. He also has some edema in his right eyelid and side of his face this morning which was noticed by son, states that that has not been there before. Patient denies any known trauma to the area. He has had increasing fatigue and falls asleep easily, sometimes even while sitting upright on the toilet, as he has been increasingly constipated. notes that he has had increasing issues with tolerating food, patient admits that his diet has been poor, him when he has an appetite shortly afterwards he vomits on many occasions. He does have THC skittles which he consumes on a daily basis to help with appetite. Patient is smoking about 3 cigarettes daily still because he enjoys it. and son are present at bedside and supports the history. notes that he has lost approximately another 30 pounds since November, states that at that time he weighed approximately 132 pounds, today is near 100 pounds. Patient has been taking his home medications as prescribed, last taken this morning. Patient is adamant that he is not going to pursue chemotherapy. Agreeable to having imaging of his back obtained today to determine the status of his cancer, to see if there is any progression, and may be agreeable pending the outcome to having XRT if this will provide pain management relief. He is agreeable to meeting with palliative, and reports he was supposed to see oncology on Friday this week to discuss possible hospice. Discussion was held regarding resuscitation status, today patient is agreeable to being a DNR/DNI. Allergies Allergy/AdvReac Type Severity Reaction Status Date / Time morphine Allergy Intermediate Hives, Verified 03/05/23 17:09 Shakes Home Medications Medication Instructions Recorded Confirmed Type alendronate 70 mg tablet (Fosamax) 70 mg PO WK 03/26/18 03/05/23 History aspirin 81 mg tablet,delayed 81 mg PO QAM 03/26/18 03/05/23 History release metformin 1,000 mg tablet 1,000 mg PO QAM 03/26/18 03/05/23 History calcium carbonate 500 mg-vitamin 1 tab PO QAM 05/14/19 03/05/23 History D3 5 mcg (200 unit) tablet (Calcium 500 + D) cyanocobalamin (vitamin B-12) 1,000 mcg PO QAM 05/14/19 03/05/23 History 1,000 mcg tablet (Vitamin B-12) lisinopril 40 mg tablet (Zestril) 20 mg PO QAM 05/14/19 03/05/23 History docusate sodium 100 mg capsule 100 mg PO DAILY PRN Constipation 06/08/19 03/05/23 History (Colace) fentanyl 75 mcg/hr transdermal 1 patch transdermal Q72H 07/18/22 03/05/23 History patch ferrous sulfate 325 mg (65 mg 325 mg PO QAM 07/18/22 03/05/23 History iron) tablet (Iron (ferrous sulfate)) acetaminophen 325 mg tablet 650 mg PO Q8 PRN Pain 09/09/22 03/05/23 History multivitamin 1 tab PO QAM 09/09/22 03/05/23 History oxycodone 10 mg tablet 10 mg PO Q4H PRN pain #60 tabs 10/15/22 03/05/23 Rx ascorbic acid (vitamin C) 1,000 mg 1 g PO QAM 03/05/23 03/05/23 History tablet (Vitamin C) Past Med/Surg History Medical History Anemia reason for scheduled egd/colonoscopy Chronic lumbar pain Chronic lymphoid leukemia following with CCP 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 pylori infection hx of 2019 > resolved Hx MRSA infection in elbow wound several yrs ago > resolved Hypertension Lyme disease several yrs ago Osteoarthritis Osteoporosis Smoker Surgical History History of back surgery HAD FX AND FUSION OF LUMBAR History of bronchoscopy History of cataract surgery bilat History of colonoscopy History of esophagogastroduodenoscopy (EGD) History of incision and drainage right elbow 11/11/17 LMA#5. History of open reduction and internal fixation (ORIF) procedure x3--LEFT LEG FEMUR HAS DEVYN 09/25/18 LMA#5. History of right inguinal hernia repair 06/08/19 LMA#5. History of tonsillectomy Hx of shoulder surgery left Hx of vasectomy Family History Mother Family history of diabetes mellitus Other No family history of adverse response to anesthesia Social History Smoking Status: Current every day smoker Tobacco Type: Cigarettes Cigarettes Per Day: <1 ppd; Second Hand Exposure: No; Do You Dip or Chew Tobacco: Yes; Hx Alcohol Use: Yes Alcohol type: beer Hx Substance Use: No Preferred Language: Czech Communication Ability: Effective Visual Impairment: No Limitations Hearing Ability: Hard of Hearing Travel Accommodations Rater Required: No Beliefs That Will Affect Care: None marital status: Current Living Situation: Spouse current occupational status: retired Other Information That Helps Us Care for You: No Feels Safe at Home: Yes Safety Concerns: Feels Safe At This Time during the past year weight has: decreased > 10 lbs Assistive Devices: Cane and Glasses Review of Systems Review of Systems: Constitutional: No fever, sweats or chills. + Weight loss of 30 pounds since November Eyes: No diplopia, no worsening or blurred vision, + edema right face and eyelid x1 day ENT: normal hearing, no trouble swallowing Respiratory: No cough, sputum, dyspnea at rest or on exertion, smoking 3 cigar ettes daily Cardiovascular: No chest pain, tightness or palpitations Abdomen: As per HPI, no pain, intermittent nausea and vomiting, +constipation Musculoskeletal: No joint pain, calf pain, swelling Back: + chronic back pain Neurologic: No weakness, numbness/tingling, + balance problems, denies recent falls, uses a cane with ambulation. Psychiatric: No anxiety or depression Skin: No rash or itch Physical Exam Physical Exam: General: awake, alert, no apparent distress, + BMI 17.2, cachexia, muscle atrophy Head: Normocephalic, right facial edema, involving the eyelid and cheek ENT: PERRL, EOMI, no pharyngeal exudate, mucous membranes moist Chest: Barrel chested, diminished breath sounds throughout, on room air, no adventitious breath sounds Cardiac: Sinus tachycardia, few PVCs, no murmur, no JVD, normal peripheral pulses, good capillary refill Abdominal: NABS x 4 quadrants, soft, nondistended, nontender to palpation, no rebound or guarding Extremities: +2 pitting peripheral edema bilaterally up to knees, no erythema, calfs nontender to palpation Psych: Normal mood and affect Neuro: AAO x 3, strength intact bilaterally and rated 5/5, + gait is unsteady, uses cane, no gross motor deficits, speech is clear, no peripheral sensory deficits Results & Data Results & Data Vital Signs (Past 12 Hours) Vital Signs Temp Pulse Pulse Resp BP BP Pulse Ox 03/05/23 15:56 76 20 142/79 H 98 03/05/23 14:05 35 C L 90 18 154/82 H 95 O2 Del Method 03/05/23 15:56 03/05/23 14:05 Room Air Laboratory Results 03/05/23 03/05/23 03/05/23 14:46 14:46 14:46 WBC 13.93 H RBC 3.96 L Hgb 11.0 L Hct 33.0 L MCV 83.3 MCH 27.8 MCHC 33.3 RDW Std Deviation 41.0 RDW Coeff of Maury 13.4 Plt Count 347 MPV 9.6 Immature Gran % (Auto) 0.5 Neut % (Auto) 76.0 Lymph % (Auto) 17.2 Wilkinson % (Auto) 5.5 Eos % (Auto) 0.4 Baso % (Auto) 0.4 Neut # (Auto) 10.61 H Lymph # (Auto) 2.39 Wilkinson # (Auto) 0.76 H Eos # (Auto) 0.05 Baso # (Auto) 0.05 Immature Gran # (Auto) 0.07 PT 11.4 INR 1.0 APTT 25.0 PTT Ratio 0.9 Sodium 139 Potassium 2.5 L* Chloride 100 Carbon Dioxide 31 Anion Gap 8 BUN 19 Creatinine 1.04 Est Cr Clr Drug Dosing 45.1 Est GFR ( Amer) 83.9 Est GFR (Non-Af Amer) 72.4 BUN/Creatinine Ratio 18.3 Glucose 97 Calcium 13.8 H* Magnesium 2.0 Total Bilirubin 0.8 AST 20 ALT 8 Alkaline Phosphatase 64 Troponin I High Sens 56.8 H* Total Protein 6.5 Albumin 3.7 Globulin 2.8 Albumin/Globulin Ratio 1.3 TSH 1.709 Diagnostic Findings Chest X-Ray 03/05/23 14:12 XR chest 1V not portable HISTORY: Weakness COMPARISON: Chest 07/24/2022. Chest CT 11/12/2022. FINDINGS: No pneumothorax. Volume loss within the right hemithorax with mild right mediastinal shift and a right basilar airspace opacity. This likely represents right lower lobe collapse. This is new from the prior study. There is a small right pleural effusion. Surgical clips within the left upper quadrant. The left lung is clear. Right paratracheal/mediastinal lymphadenopathy is again noted. There are 2 small nodular densities within the left lung apex measuring up to 7 mm. These are new from the prior study. These could be external to the patient. IMPRESSION: 1. Volume loss within the right hemithorax with mild right mediastinal shift and a right basilar airspace opacity. This likely represents right lower lobe collapse. This is new from the prior study and could be due to mucous plugging. 2. Small right pleural effusion. 3. Right paratracheal/mediastinal lymphadenopathy again noted. ACT 112: Negative or not required by law. Electronically signed by: Ricky Raman M.D. 03/05/2023 4:02 PM Code Status & VTE Plan Code Status DNR/DNI-Long discussion held with the patient, and son who are present at bedside. Supervising Physician Co-Signing Physician Notes 68-year-old male with PMH of CLL and SCC, who had been reluctant to consider treatment therapies for his cancer comes in with increasing lower back pain and swelling of his lower extremity. He states poor appetite; worsening subjective difficulty breathing. Also reports ble radicular symptoms - numbness. Pt is firm on that he doesn't want any chemotherapy or procedures for treatment purposes but if procedures help him become more comfortable then he would be willing to pursue such procedures only. Hypercalcemia; 2/2 cancer status. received ivf and zoledronic acid. f/u labs. nephro consult. low back pain, compression deformities noted on CT scan. pain management. palliative consideration. Add bowel regimen due to need for pain meds. BLE edema impeding w/ needed ivf for hypercalcemia. Will likely need lasix with ivf if Ca not coming down. Rt hemithorax, RLL collapse, pulm consult. Overall poor health with poor prognosis; family and patient leaning towards more comfortable transition, palliative consulted for goals of care discussion. Exam: GENERAL: Alert and oriented x3. NAD, on RA. Cachectic, ill, frail. HEENT: No pallor, no icterus. Pupils equal, round and reactive to light. Oral mucosa moist. NECK: No JVD, no neck masses. HEART: S1 and S2 heard. Regular rate and rhythm. No murmur, no gallop. RESPIRATORY SYSTEM: Normal AP diameter. No accessory muscle use. No wheezing, b/l crackles. ABDOMEN: Soft, bowel sounds present, nontender, no distention. CENTRAL NERVOUS SYSTEM: No facial droop. Speech is clear. Obeys simple commands. Moves extremities. EXTREMITIES: 3+ BLE edema, no erythema seen. I have seen and examined the patient and have discussed the case with the provider above. I agree with the assessment and plan as stated.
--- NOTE | 2023-03-05 17:34 | Electrocardiogram Report ---
Test Reason : Blood Pressure : / mmHG Vent. Rate : 090 BPM Atrial Rate : 090 BPM P-R Int : 182 ms QRS Dur : 110 ms QT Int : 350 ms P-R-T Axes : 064 -72 066 degrees QTc Int : 428 ms Sinus rhythm with occasional Premature ventricular complexes Possible Left atrial enlargement Low voltage QRS Incomplete right bundle branch block Left anterior fascicular block Nonspecific ST and T wave abnormality Abnormal ECG When compared with ECG of 23-SEP-2018 12:40, Premature ventricular complexes are now Present Nonspecific T wave abnormality now evident in Inferior leads Nonspecific T wave abnormality now evident in Anterolateral leads Confirmed by Ricki Gutierrez ([id number]) on 03/05/2023 5:34:01 PM Referred By: Confirmed By:Ubaldo Gutierrez
--- NOTE | 2023-03-05 17:37 | CT Scan Report ---
THORACIC SPINE CT CT DOSE: 2455.64 mGy.cm HISTORY: back pain, hx lung cancer TECHNIQUE: Multiaxial CT images of the thoracic spine were performed and reformatted in the sagittal and coronal plane without the use of contrast. A dose lowering technique was utilized adhering to th e principles of ALARA. COMPARISON: Chest CT 11/12/2022. FINDINGS: There are multiple bilateral pulmonary nodules consistent with metastatic disease. These noguera ve progressed in the interval. Increase in size in the right mediastinal/paratracheal mass which exte nd into the right lower neck. This results in leftward deviation of the upper trachea which has also progressed. Subcarinal and right hilar lymphadenopathy has also progressed in the interval. Partial m ucoid opacification of the right lower lobe bronchi. There is a small right pleural effusion. Patchy densities at the right lung base favor a pneumonia and could be due to aspiration. No significant pete tral canal narrowing by CT technique. Interval of a moderate to severe inferior endplate compression fracture at T6 demonstrating up to 80% loss of height centrally. There is 2 mm of retropulsion of the posterior inferior corner of the T6 vertebral body. However, no significant central canal narrowing at this level. There is mild paravertebral edema at this level due to the acute to subacute compressi on fracture at T6. Multiple additional chronic mild endplate compression deformities seen throughout the majority thoracic spine. These are not significantly changed. Mild disc space narrowing at T7-T8. No suspicious osseous lesions identified. IMPRESSION: 1. Interval development of a moderate to severe inferior endplate compression fracture at T6 consiste nt with an acute to subacute fracture. 2. Multiple additional chronic mild endplate compression deformities seen throughout the majority of the thoracic spine remain unchanged. 3. Increase in size in the right mediastinal/paratracheal mass. Multiple scattered pulmonary nodules have also progressed consistent with metastatic disease. 4. There is a small right pleural effusion. 5. Partial mucoid opacification the right lower lobe bronchi with patchy airspace opacities at the ri ght lung base. This may represent an aspiration pneumonitis. ACT 112: Negative or not required by law. Electronically signed by: Ricky Raman M.D. 03/05/2023 5:35 PM
--- NOTE | 2023-03-05 17:44 | CT Scan Report ---
LUMBAR SPINE CT CT DOSE: HISTORY: Low back pain TECHNIQUE: Multiaxial CT images of the lumbar spine were performed and reformatted in the sagittal an d coronal plane without the use of contrast. A dose lowering technique was utilized adhering to the principles of ALARA. COMPARISON: Abdomen and pelvis CT 11/12/2022. FINDINGS: Bilateral nephrolithiasis again noted. No hydronephrosis. No paravertebral edema. Mild cent ral canal narrowing at L2-L3, unchanged. No high-grade central canal stenosis. No suspicious osseous lesions within the lumbar spine. Levoscoliosis of the lumbar spine. Left lateral fusion at L2-L4 with an L2 vertebral body cage. The hardware appears intact. This remains unchanged. The visualized sacru m is intact. Moderate superior endplate compression deformity at L1, unchanged. Therefore, this is co nsidered to be chronic. Moderate anterior wedging at L3 is also unchanged. There is an old mild super ior endplate compression deformity at L5, unchanged. No acute fractures identified within the lumbar spine. Progressive loss of height along the right side of the moderate to severe compression deformit y at L2. This favors a subacute to chronic compression fracture. No definite acute fractures within t he lumbar spine. IMPRESSION: 1. Progressive loss of height along the right side of the moderate to severe compression deformity at L2. This favors a subacute to chronic compression fracture. No definite acute fractures within the l umbar spine. 2. Additional chronic compression deformities and postoperative changes within the lumbar spine as de scribed above. ACT 112: Negative or not required by law. Electronically signed by: Ricky Raman M.D. 03/05/2023 5:42 PM
[2023-03-05] MEDS ORDERED: POTASSIUM CHLORIDE CRTAB 20 MEQ TABCR PO STA ×2 (17:45→22:57)
[2023-03-05] MEDS: POTASSIUM CHLORIDE / WTR 10 MEQ/100 ML PLCT IV SCH ×4 (18:14→23:30)
[2023-03-05] MEDS ORDERED: GLUCAGON FOR INJ 1 MG VIAL SQ PRN (19:21)
[2023-03-05] MEDS ORDERED: GLUCOSE 40% GEL 15 GM TUBE PO PRN (19:21)
[2023-03-05] MEDS ORDERED: DOCUSATE SODIUM 100 MG CAP PO PRN (19:21)
[2023-03-05] MEDS ORDERED: DEXTROSE 50% 50 ML SYRINGE IV PRN (19:21)
[2023-03-05] MEDS ORDERED: ACETAMINOPHEN 325 MG TAB PO PRN (19:21)
[2023-03-05] MEDS ORDERED: GLUCOSE 10 TAB/TUBE PO PRN (19:21)
[2023-03-05] MEDS ORDERED: CARBOHYDRATES FOR HYPOGLYCEMIA PO PRN (19:21)
[2023-03-05] MEDS ORDERED: fentaNYL 75 MCG/HR TDSY TD SCH (19:45)
[2023-03-05] MEDS: HYDROmorphone INJ 0.5 MG/0.5 ML SYR IV SCH ×2 (21:19→23:14)
[2023-03-05] MEDS: INSULIN ASPART PER UNIT CHARGE SC SCH (21:32)
[2023-03-05 21:36] LABS: BUN Creatinine Ratio 18.9 (10-20); Calcium 13.1 mg/dl (8.6-10.3); Creatinine Clr Calc Pharmacy 44.2 ml/min; Est GFR (Non-African American) 70.8 ml/min; Potassium 2.5 mmol/L (3.5-5.1); Troponin I High Sensitivity 100.7 pg/ml (0-20)
[2023-03-05 22:28] LABS: Phosphorus 1.9 mg/dl (2.5-4.9)
[2023-03-05] MEDS ORDERED: CALCITONIN SALMON 400 UNITS/2 ML SQ ONE (22:30)
[2023-03-05 22:47] LABS: Appearance Urine Cloudy (Clear); Bacteria Urine Automated Negative (Negative); Bilirubin Urine Negative (Negative); Blood Urine Negative (Negative); Color Urine Yellow; Glucose Urine UA Negative (Negative); Ketones Urine Negative (Negative); Leukocyte Esterase Urine Negative (Negative); Nitrite Urine Negative (Negative); Protein Urine Negative (Negative); RBC Urine Automated 0-4 /hpf (0-4); Urobilinogen Urine Negative (Negative); pH Urine 7.5 (4.5-7.5)
[2023-03-06] MEDS: CHECK fentaNYL PATCH PLACEMENT SCH ×3 (00:10→16:00)
[2023-03-06] MEDS: POTASSIUM CHLORIDE / WTR 10 MEQ/100 ML PLCT IV SCH ×4 (00:29→03:30)
[2023-03-06] MEDS ORDERED: POTASSIUM CHLORIDE CRTAB 20 MEQ TABCR PO ONE (01:00)
[2023-03-06] MEDS: HYDROmorphone INJ 0.5 MG/0.5 ML SYR IV SCH ×4 (01:19→08:07)
[2023-03-06] MEDS ORDERED: POLYETHYLENE (MIRALAX) 17 GM PACK PO ONE (02:43)
[2023-03-06] MEDS ORDERED: LACTULOSE SYRUP 20 GM/30 ML UDC PO ONE (02:43)
[2023-03-06 06:19] LABS: Basophils # (auto) 0.04 K/uL (0.00-0.20); Basophils % (auto) 0.2 %; Eosinophils # (auto) 0.04 K/uL (0.00-0.50); Eosinophils % (auto) 0.2 %; Hematocrit (blood only) 35.3 % (42.0-52.0); Hemoglobin 11.6 g/dl (14.0-18.0); Immature Granulocytes # (auto) 0.09 K/uL (0.01-0.20); Immature Granulocytes % (auto) 0.6 %; Lymphocytes # (auto) 2.58 K/uL (1.20-3.40); Lymphocytes % (auto) 15.8 %; Mean Corpuscular Hgb Conc 32.9 g/dL (32.0-36.0); Mean Corpuscular Volume 85.3 fL (80.0-100.0); Mean Platelet Volume 9.7 fL (9.4-12.4); Monocytes # (auto) 0.83 K/uL (0.11-0.59); Monocytes % (auto) 5.1 %; Neutrophils # (auto) 12.74 K/uL (1.40-6.50); Neutrophils % (auto) 78.1 %; Platelet Count 337 K/uL (130-400); RDW Coefficient of Variation 13.5 % (11.5-14.5); RDW Standard Deviation 42.2 fL (36.4-46.3); Red Blood Count 4.14 M/uL (4.70-6.10); White Blood Count 16.32 K/ul (4.8-10.8)
--- NOTE | 2023-03-06 06:49 | Consultation ---
Date of Consultation March 05, 2023 Assessment & Plan (1) Metastatic primary lung cancer: Squamous cell carcinoma with suspicion for hepatic mets on November imaging. He has a history of lumbar compression fracture and lytic lesions in the pelvis though bone scan in August did not suggest that these were metastases. Certainly has locally advanced disease in the lung with a large lung mass, possible satellite nodules/pulmonary metastases, and significant mediastinal node involvement Previous MRI was negative for brain involvement but with the ptosis it could be worthwhile to repeat that Presents with hypercalcemia which could be a specific consequence of bony metastases but also could be a paraneoplastic process with a squamous cell lung cancer. PTHrp could be academically interesting with regards to the latter though would not have major functional implications in the larger context of a very conservative approach to his overall disease management. He did receive a dose of Zometa upon admission and we already see his calcium declining and mental status clearing somewhat He has consistently declined chemotherapy and radiation though may be willing to rethink radiation if it can achieve some palliation of the back pain. Could also be worthwhile to touch base with Dr. Stahl with regards to the potential for vertebroplasty especially of the T6 lesion. Palliative care consultation and orientation will be most consistent with his expressed goals of a minimalist approach to his disease. Anticipate focusing on the hypercalcemia, compression fracture/back pain, and more general supportive measures (2) Closed compression fracture of thoracic vertebra: The lumbar fracture is old and he probably has an element of osteoporosis. The current combination of hypercalcemia and acute fracture of T6 more specifically raises the specter of bony metastases. With an overall very conservative approach to his disease based on his wishes to avoid radiation and chemotherapy, our intervention should be largely focused on what we can do to stabilize the structural integrity and pain issues related to his new compression fracture (3) Palliative care encounter: Palliative care consultation will be essential in overall management to both s pecifically diet is an optimal pain management but also make sure that we are setting appropriate broad parameters of care consistent with the patient's wishes (4) Chronic lymphoid leukemia: Adequate hemoglobin, neutrophil, and platelet counts. CLL at this point does not need intervention though if he were to develop a major infection may need to assess for IgG levels and the need for IgG supplementation (5) Hypercalcemia: Whether this is a specific consequence of discrete bony metastases or paraneoplastic result of squamous cell carcinoma elaborated PTHrp, in the context of a very conservative approach to his disease overall management will be largely empiric consisting of bisphosphonates as already administered, fluids and if needed some short-term doses of calcitonin. Would revisit whether he would at least consider radiation to the back Plan 1. Would consult Dr. Stahl for any value to vertebroplasty 2. Would consult palliative care for both specific symptom management as well more general confirmation parameters of care 3. Will review with the patient especially as we see whether or not he is a vertebroplasty candidate but would consider revisiting radiation oncology options at least for discrete relief of back pain 4. Consider pulmonary medicine review - right lung changes may reflect mucous plugging and/or pneumonitis. If there is concern over infection, may want to check immunoglobulin levels to see if he needs supplemental given his CLL. 5. Other than possible immunoglobulin fusion, he does not need specific intervention with respect to his CLL 6. Consider MRI of the brain with and without contrast given the left-sided ptosis and high risk for occult LABEL REWINDER metastases. History of Present Illness Reason for Consultation: Metastatic lung cancer admitted with worsening back pain, hypercalcemia, hypokalemia Attending Physician: Kuldip Cueto MD History of Present Illness Longtime 1 pack/day smoker who had presented with weight loss and lung 1 year ago. For some time he resisted diagnostic biopsy though ultimately assented to bronchoscopy in July that made a diagnosis of squamous cell carcinoma. At that time he had histologically confirmed mediastinal lymph node involved, concern for hepatic and separate lung metastases, no evidence of brain metastases. He consistently declined offers of treatment even after extensive discussions of radiation and/or chemotherapy options. Some of his concerns related to financials that are navigators they have had assured him that we would be able to offer sufficient support. His last meeting in November was associated with a definitive decision to pursue only pain management. If in the interim he has lost further weight and now presents acutely with deterioration of mental status, hypercalcemia, more severe back pain and compression fractures in the back (though he did have an old L2 compression fracture) Notes that the patient does have history of CLL deletion 13 q. but has had numerically stable CBCs associated with that and not require treatment. I was originally diagnosed in 2016 Munoz stage 0. Allergies Allergy/AdvReac Type Severity Reaction Status Date / Time morphine Allergy Intermediate Hives, Verified 03/05/23 17:09 [facility] Home Medications Medication Instructions Recorded Confirmed Type alendronate 70 mg tablet (Fosamax) 70 mg PO WK 03/26/18 03/05/23 History aspirin 81 mg tablet,delayed 81 mg PO QAM 03/26/18 03/05/23 History release metformin 1,000 mg tablet 1,000 mg PO QAM 03/26/18 03/05/23 History calcium carbonate 500 mg-vitamin 1 tab PO QAM 05/14/19 03/05/23 History D3 5 mcg (200 unit) tablet (Calcium 500 + D) cyanocobalamin (vitamin B-12) 1,000 mcg PO QAM 05/14/19 03/05/23 History 1,000 mcg tablet (Vitamin B-12) lisinopril 40 mg tablet (Zestril) 20 mg PO QAM 05/14/19 03/05/23 History docusate sodium 100 mg capsule 100 mg PO DAILY PRN Constipation 06/08/19 03/05/23 History (Colace) fentanyl 75 mcg/hr transdermal 1 patch transdermal Q72H 07/18/22 03/05/23 History patch ferrous sulfate 325 mg (65 mg 325 mg PO QAM 07/18/22 03/05/23 History iron) tablet (Iron (ferrous sulfate)) acetaminophen 325 mg tablet 650 mg PO Q8 PRN Pain 09/09/22 03/05/23 History multivitamin 1 tab PO QAM 09/09/22 03/05/23 History oxycodone 10 mg tablet 10 mg PO Q4H PRN pain #60 tabs 10/15/22 03/05/23 Rx ascorbic acid (vitamin C) 1,000 mg 1 g PO QAM 03/05/23 03/05/23 History tablet (Vitamin C) Patient History Medical History Anemia reason for scheduled egd/colonoscopy Chronic lumbar pain Chronic lymphoid leukemia following with CCP 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 pylori infection hx of 2019 > resolved Hx MRSA infection in elbow wound several yrs ago > resolved Hypertension Lyme disease several yrs ago Osteoarthritis Osteoporosis Smoker Surgical History History of back surgery HAD FX AND FUSION OF LUMBAR History of bronchoscopy History of cataract surgery bilat History of colonoscopy History of esophagogastroduodenoscopy (EGD) History of incision and drainage right elbow 11/11/17 LMA#5. History of open reduction and internal fixation (ORIF) procedure x3--LEFT LEG FEMUR HAS DEVYN 09/25/18 LMA#5. History of right inguinal hernia repair 06/08/19 LMA#5. History of tonsillectomy Hx of shoulder surgery left Hx of vasectomy Family History Mother Family history of diabetes mellitus Other No family history of adverse response to anesthesia Social History Smoking Status: Current every day smoker Tobacco Type: Cigarettes Cigarettes Per Day: <1 ppd; Second Hand Exposure: No; Do You Dip or Chew Tobacco: Yes; Hx Alcohol Use: Yes Alcohol type: beer Hx Substance Use: No Preferred Language: Maldivian Communication Ability: Effective Visual Impairment: No Limitations Hearing Ability: Hard of Hearing Vp Product Marketing Required: No Beliefs That Will Affect Care: None marital status: Current Living Situation: Spouse current occupational status: retired Other Information That Helps Us Care for You: No Feels Safe at Home: Yes Safety Concerns: Feels Safe At This Time during the past year weight has: decreased > 10 lbs Assistive Devices: Cane and Glasses Physical Exam Physical Exam: Somewhat cachectic appearing, ECOG PS 3 with pain level 8/10 on presentation though that is down to 3/10 at the time of my assessment He is alert, fluent, and appropriate. I do note some ptosis of the left eye but no meningismus and otherwise grossly intact neurologic exam He does have an exaggerated kyphosis but no dramatic local palpable bony deformity. Breath sounds are decreased but he is moving air well without use of accessory muscles Cardiac rhythm is regular without clearly pathologic murmur The abdomen seems benign Extremities show some muscle wasting and mild anemia but without compression tenderness or cords Results & Data Vital Signs (Past 12 Hours) Vital Signs Temp Pulse Pulse Resp BP Pulse Ox O2 Del Method 03/06/23 02:35 36.5 C 82 18 167/88 H 92 Room Air 03/05/23 23:42 75 03/05/23 23:07 Room Air 03/05/23 22:37 36.6 C 70 18 129/73 96 Room Air 03/05/23 21:06 67 20 127/70 96 Room Air 03/05/23 18:53 Room Air 03/05/23 18:53 36.5 C 73 18 113/82 98 Room Air Laboratory Results Laboratory Results - last 24 hr 03/05/23 03/05/23 03/05/23 14:46 20:41 21:15 WBC 13.93 H RBC 3.96 L Hgb 11.0 L Hct 33.0 L MCV 83.3 MCH 27.8 MCHC 33.3 RDW Std Deviation 41.0 RDW Coeff of Maury 13.4 Plt Count 347 MPV 9.6 Immature Gran % (Auto) 0.5 Neut % (Auto) 76.0 Lymph % (Auto) 17.2 [place] % (Auto) 5.5 Eos % (Auto) 0.4 Baso % (Auto) 0.4 Neut # (Auto) 10.61 H Lymph # (Auto) 2.39 [place] # (Auto) 0.76 H Eos # (Auto) 0.05 Baso # (Auto) 0.05 Immature Gran # (Auto) 0.07 PT 11.4 INR 1.0 APTT 25.0 PTT Ratio 0.9 Sodium 139 140 Potassium 2.5 L* 2.5 L* Chloride 100 101 Carbon Dioxide 31 33 H Anion Gap 8 6 BUN 19 20 Creatinine 1.04 1.06 Est Cr Clr Drug Dosing 45.1 44.2 Est GFR ( Amer) 83.9 82.0 Est GFR (Non-Af Amer) 72.4 70.8 BUN/Creatinine Ratio 18.3 18.9 Glucose 97 105 H POC Glucose 115 H Estimat Average Glucose Hemoglobin A1c Calcium 13.8 H* 13.1 H* Phosphorus 1.9 L Magnesium 2.0 Total Bilirubin 0.8 AST 20 ALT 8 Alkaline Phosphatase 64 Troponin I High Sens 56.8 H* 100.7 H* D Total Protein 6.5 Albumin 3.7 Globulin 2.8 Albumin/Globulin Ratio 1.3 TSH 1.709 PTH Intact Urine Color Urine Appearance Urine pH Ur Specific Chandler Urine Protein Urine Glucose (UA) Urine Ketones Urine Blood Urine Nitrite Urine Bilirubin Urine Urobilinogen Ur Leukocyte Esterase Urine WBC (Auto) Urine RBC (Auto) U Hyaline Cast (Auto) U Epithel Cells (Auto) Urine Bacteria (Auto) 03/05/23 03/06/23 22:30 05:54 WBC 16.32 H RBC 4.14 L Hgb 11.6 L Hct 35.3 L MCV 85.3 MCH 28.0 MCHC 32.9 RDW Std Deviation 42.2 RDW Coeff of Maury 13.5 Plt Count 337 MPV 9.7 Immature Gran % (Auto) 0.6 Neut % (Auto) 78.1 Lymph % (Auto) 15.8 [place] % (Auto) 5.1 Eos % (Auto) 0.2 Baso % (Auto) 0.2 Neut # (Auto) 12.74 H Lymph # (Auto) 2.58 [place] # (Auto) 0.83 H Eos # (Auto) 0.04 Baso # (Auto) 0.04 Immature Gran # (Auto) 0.09 PT INR APTT PTT Ratio Sodium 141 Potassium 3.7 D Chloride 105 Carbon Dioxide 31 Anion Gap 5 BUN 16 Creatinine 1.03 Est Cr Clr Drug Dosing 45.5 Est GFR ( Amer) 84.9 Est GFR (Non-Af Amer) 73.3 BUN/Creatinine Ratio 15.5 Glucose 150 H POC Glucose Estimat Average Glucose Pending Hemoglobin A1c Pending Calcium 12.8 H* Phosphorus 1.6 L Magnesium 1.8 Total Bilirubin 0.7 AST 20 ALT 9 Alkaline Phosphatase 64 Troponin I High Sens Total Protein 6.7 Albumin 3.8 Globulin 2.9 Albumin/Globulin Ratio 1.3 TSH PTH Intact 3.9 L Urine Color Yellow Urine Appearance Cloudy A Urine pH 7.5 Ur Specific Chandler 1.010 Urine Protein Negative Urine Glucose (UA) Negative Urine Ketones Negative Urine Blood Negative Urine Nitrite Negative Urine Bilirubin Negative Urine Urobilinogen Negative Ur Leukocyte Esterase Negative Urine WBC (Auto) 1-5 Urine RBC (Auto) 0-4 U Hyaline Cast (Auto) 1-5 U Epithel Cells (Auto) 10-20 H Urine Bacteria (Auto) Negative Diagnostic Findings Chest X-Ray 03/05/23 14:12 XR chest 1V not portable HISTORY: Weakness COMPARISON: Chest 07/24/2022. Chest CT 11/12/2022. FINDINGS: No pneumothorax. Volume loss within the right hemithorax with mild right mediastinal shift and a right basilar airspace opacity. This likely represents right lower lobe collapse. This is new from the prior study. There is a small right pleural effusion. Surgical clips within the left upper quadrant. The left lung is clear. Right paratracheal/mediastinal lymphadenopathy is again noted. There are 2 small nodular densities within the left lung apex measuring up to 7 mm. These are new from the prior study. These could be external to the patient. IMPRESSION: 1. Volume loss within the right hemithorax with mild right mediastinal shift and a right basilar airspace opacity. This likely represents right lower lobe collapse. This is new from the prior study and could be due to mucous plugging. 2. Small right pleural effusion. 3. Right paratracheal/mediastinal lymphadenopathy again noted. ACT 112: Negative or not required by law. Electronically signed by: Ricky Raman M.D. 03/05/2023 4:[address] 03/05/23 16:[address] DOSE: HISTORY: Low back pain TECHNIQUE: Multiaxial CT images of the lumbar spine were performed and reformatted in the sagittal and coronal plane without the use of contrast. A dose lowering technique was utilized adhering to the principles of ALARA. COMPARISON: Abdomen and pelvis CT 11/12/2022. FINDINGS: Bilateral nephrolithiasis again noted. No hydronephrosis. No paravertebral edema. Mild central canal narrowing at L2-L3, unchanged. No high- grade central canal stenosis. No suspicious osseous lesions within the lumbar spine. Levoscoliosis of the lumbar spine. Left lateral fusion at L2-L4 with an L2 vertebral body cage. The hardware appears intact. This remains unchanged. The visualized sacrum is intact. Moderate superior endplate compression deformity at L1, unchanged. Therefore, this is considered to be chronic. Moderate anterior wedging at L3 is also unchanged. There is an old mild superior endplate compression deformity at L5, unchanged. No acute fractures identified within the lumbar spine. Progressive loss of height along the right side of the moderate to severe compression deformity at L2. This favors a subacute to chronic compre ssion fracture. No definite acute fractures within the lumbar spine. IMPRESSION: 1. Progressive loss of height along the right side of the moderate to severe compression deformity at L2. This favors a subacute to chronic compression fracture. No definite acute fractures within the lumbar spine. 2. Additional chronic compression deformities and postoperative changes within the lumbar spine as described above. ACT 112: Negative or not required by law. Electronically signed by: Ricky Raman M.D. 03/05/2023 5:[address] 03/05/23 16:[address] DOSE: 2455.64 mGy.cm HISTORY: back pain, hx lung cancer TECHNIQUE: Multiaxial CT images of the thoracic spine were performed and reformatted in the sagittal and coronal plane without the use of contrast. A dose lowering technique was utilized adhering to the principles of ALARA. COMPARISON: Chest CT 11/12/2022. FINDINGS: There are multiple bilateral pulmonary nodules consistent with metastatic disease. These have progressed in the interval. Increase in size in the right mediastinal/paratracheal mass which extend into the right lower neck. This results in leftward deviation of the upper trachea which has also progressed. Subcarinal and right hilar lymphadenopathy has also progressed in the interval. Partial mucoid opacification of the right lower lobe bronchi. There is a small right pleural effusion. Patchy densities at the right lung base favor a pneumonia and could be due to aspiration. No significant central canal narrowing by CT technique. Interval of a moderate to severe inferior endplate compression fracture at T6 demonstrating up to 80% loss of height centrally. There is 2 mm of retropulsion of the posterior inferior corner of the T6 vertebr al body. However, no significant central canal narrowing at this level. There is mild paravertebral edema at this level due to the acute to subacute compression fracture at T6. Multiple additional chronic mild endplate compression deformities seen throughout the majority thoracic spine. These are not significantly changed. Mild disc space narrowing at T7-T8. No suspicious osseous lesions identified. IMPRESSION: 1. Interval development of a moderate to severe inferior endplate compression fracture at T6 consistent with an acute to subacute fracture. 2. Multiple additional chronic mild endplate compression deformities seen throughout the majority of the thoracic spine remain unchanged. 3. Increase in size in the right mediastinal/paratracheal mass. Multiple scattered pulmonary nodules have also progressed consistent with metastatic disease. 4. There is a small right pleural effusion. 5. Partial mucoid opacification the right lower lobe bronchi with patchy airspace opacities at the right lung base. This may represent an aspiration pneumonitis. ACT 112: Negative or not required by law. Electronically signed by: Ricky Raman M.D. 03/05/2023 5:35 PM PG Care Time/CCT Total # of Minutes Spent Total Time Spent with Patient: Total time spent is greater than 50% in coordination of care (as documented) at patient's floor/unit and/or counseling patient: Coding Level of Care Code 85943 IN/OBS CONSULT LVL 4,60M Diagnoses Metastatic primary lung cancer C34.90 Laterality: unspecified laterality Closed compression fracture of thoracic vertebra S22.000A Encounter type: initial encounter Palliative care encounter Z51.5 Chronic lymphoid leukemia C91.90 Hypercalcemia E83.52 Comment This is documentation for a visit that was conducted on 03/05/2023 (1) Metastatic primary lung cancer Laterality: unspecified laterality Qualified Code(s): C34.90 - Malignant neoplasm of unspecified part of unspecified bronchus or lung (2) Closed compression fracture of thoracic vertebra Encounter type: initial encounter Qualified Code(s): S22.000A - Wedge compression fracture of unspecified thoracic vertebra, initial encounter for closed fracture
[2023-03-06 06:54] LABS: Albumin Globulin Ratio 1.3 (0.9-2); Albumin Level 3.8 gm/dl (3.4-5.0); BUN Creatinine Ratio 15.5 (10-20); Bilirubin,Total 0.7 mg/dl (0.2-1.0); Calcium 12.8 mg/dl (8.6-10.3); Creatinine Clr Calc Pharmacy 45.5 ml/min; Est GFR (African American) 84.9 ml/min; Est GFR (Non-African American) 73.3 ml/min; Globulin 2.9 gm/dl (2.5-4.0); Magnesium 1.8 mg/dl (1.7-2.4); Phosphorus 1.6 mg/dl (2.5-4.9); Potassium 3.7 mmol/L (3.5-5.1); Total Protein 6.7 gm/dl (6.0-8.3)
[2023-03-06] MEDS: oxyCODONE HCL IR 5 MG TAB (IMMEDIATE RELEASE) PO PRN ×3 (08:12→20:40)
[2023-03-06] MEDS: ASPIRIN 81 MG ECTAB PO SCH (08:13)
[2023-03-06] MEDS: CYANOCOBALAMIN (B-12) 500 MCG TABLET PO SCH (08:13)
[2023-03-06] MEDS: ASCORBIC ACID 500 MG TAB PO SCH (08:13)
[2023-03-06] MEDS: MULTIVITAMIN TAB PO SCH (08:13)
[2023-03-06] MEDS ORDERED: POTASSIUM PHOS 3 MMOL/1 ML INFUSION IV STA (08:14)
[2023-03-06] MEDS: POLYETHYLENE (MIRALAX) 17 GM PACK PO SCH (08:14)
[2023-03-06] MEDS: DOCUSATE SODIUM/SENNA 50/8.6MG TAB PO SCH ×2 (08:14→20:42)
[2023-03-06] MEDS ORDERED: POTASSIUM PHOSPHATE 21 MMOL in SODIUM CHLORIDE 0.9% 500 ML IV ONE (08:30)
[2023-03-06] MEDS ORDERED: CALCIUM 600MG + VIT D 400 IU TAB PO SCH (09:00)
[2023-03-06] MEDS ORDERED: bisacodyL 5 MG TABEC PO SCH (09:00)
[2023-03-06] MEDS ORDERED: lisinopril 20 MG TAB PO SCH (09:00)
[2023-03-06 09:29] LABS: Estimated Average Glucose 126 mg/dl
[2023-03-06] MEDS: INSULIN ASPART PER UNIT CHARGE SC SCH ×4 (09:40→20:45)
--- NOTE | 2023-03-06 11:03 | Nephrology Consultation ---
Date of Consultation March 06, 2023 Assessment & Plan (1) Hypercalcemia: Hypercalcemia with the presenting calcium of 13.8 in the setting of metastatic cancer. Patient has refused all kind of treatment for cancer. It appears that the cancer is quite advanced and is at the palliative stage at this time. He already received 1 dose of Zometa. He is currently getting IV fluid but he is massively edematous. Given this I would also like to give some Lasix. However he does have low potassium also. He is getting potassium phosphate for low phosphate. Given his very very poor oral intake and nutrition it is nearly impossible to manage all his electrolyte. However while he is in the hospital it is possible to correct and will do. (2) Hypokalemia: Most recent potassium is normal and is also getting potassium phosphate to correct the low phosphorus. We will put him on some scheduled potassium as I am also planning to use some IV Lasix. Also recommend to cut down a lot of his medication. Stop lisinopril as it will increase his chance of developing acute renal failure in the setting of poor oral intake. There are multiple other medications which can also be stopped including metformin. History of Present Illness Reason for Consultation: Hypercalcium in patient with metastatic cancer Attending Physician: Sylvain Armstrong MD History of Present Illness 68-year-old male with metastatic lung cancer with extensive metastasis to bone. He has history of tobacco use, COPD, DM II, HTN, elevated PSA, hx of CLL in 2016, microcytic anemia, mediastinal adenopathy upon EUBS was found to have locally advanced Squamous cell carcinoma diagnosed in July 2022. Pt has been refusing cancer treatments for multiple reasons including financial concerns and issues related to side effects of treatment. Came to the hospital yesterday because of weakness further weight loss lower extremity edema and pain mostly in the back. He was found to have hypokalemia of 2.5 and hypercalcemia of 13.8 on admission. Since admission he has received normal saline as well as potassium supplement and zoledronic acid. Also received 1 dose of calcitonin. Patient is very edematous. Has not received any Lasix yet. Is very sleepy and was not really able to give me any history. His [id number] was at the bedside but could not help me with his health questions Calcium is trending down and is now 12.8 phosphorus is very low at 1.6 and he is getting potassium phosphate. Review of system----unable to obtain as patient is very sleepy. Physical exam-----elderly white male who appears frail and very weak. He is also cachectic. Blood pressure is 135 x 77 pulse rate 85 temperature 36.5 C 95% on room air Mucous membrane is moist Neck is supple no JVD Chest bilateral rhonchi at the bases. Very poor inspiratory effort so limited quality of the exam CVS S1-S2 regular soft systolic murmur heard Abdomen is soft nontender Extremities shows 2+ pitting edema up to the lower thigh Neurological very somnolent barely opens eyes unable to get any history Allergies Allergy/AdvReac Type Severity Reaction Status Date / Time morphine Allergy Intermediate Hives, Verified 03/05/23 17:09 Shakes Home Medications Medication Instructions Recorded Confirmed Type alendronate 70 mg tablet (Fosamax) 70 mg PO WK 03/26/18 03/05/23 History aspirin 81 mg tablet,delayed 81 mg PO QAM 03/26/18 03/05/23 History release metformin 1,000 mg tablet 1,000 mg PO QAM 03/26/18 03/05/23 History calcium carbonate 500 mg-vitamin 1 tab PO QAM 05/14/19 03/05/23 History D3 5 mcg (200 unit) tablet (Calcium 500 + D) cyanocobalamin (vitamin B-12) 1,000 mcg PO QAM 05/14/19 03/05/23 History 1,000 mcg tablet (Vitamin B-12) lisinopril 40 mg tablet (Zestril) 20 mg PO QAM 05/14/19 03/05/23 History docusate sodium 100 mg capsule 100 mg PO DAILY PRN Constipation 06/08/19 03/05/23 History (Colace) fentanyl 75 mcg/hr transdermal 1 patch transdermal Q72H 07/18/22 03/05/23 History patch ferrous sulfate 325 mg (65 mg 325 mg PO QAM 07/18/22 03/05/23 History iron) tablet (Iron (ferrous sulfate)) acetaminophen 325 mg tablet 650 mg PO Q8 PRN Pain 09/09/22 03/05/23 History multivitamin 1 tab PO QAM 09/09/22 03/05/23 History oxycodone 10 mg tablet 10 mg PO Q4H PRN pain #60 tabs 10/15/22 03/05/23 Rx ascorbic acid (vitamin C) 1,000 mg 1 g PO QAM 03/05/23 03/05/23 History tablet (Vitamin C) Patient History Medical History Hx MRSA infection in elbow wound several yrs ago > resolved Osteoarthritis Osteoporosis H. 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 History of right inguinal hernia repair 06/08/19 LMA#5. History of open reduction and internal fixation (ORIF) procedure x3--LEFT LEG FEMUR HAS DEVYN 09/25/18 LMA#5. History of back surgery HAD FX AND FUSION OF LUMBAR Family History Mother Family history of diabetes mellitus Other No family history of adverse response to anesthesia Social History Smoking Status: Current every day smoker Tobacco Type: Cigarettes Cigarettes Per Day: <1 ppd; Second Hand Exposure: No; Do You Dip or Chew Tobacco: Yes; Hx Alcohol Use: Yes Alcohol type: beer Hx Substance Use: No Preferred Language: Ukrainian Communication Ability: Effective Visual Impairment: No Limitations Hearing Ability: Hard of Hearing Health Inspector Food Required: No Beliefs That Will Affect Care: None marital status: Current Living Situation: Spouse current occupational status: retired Other Information That Helps Us Care for You: No Feels Safe at Home: Yes Safety Concerns: Feels Safe At This Time during the past year weight has: decreased > 10 lbs Assistive Devices: Cane Results & Data Vital Signs (Past 12 Hours) Vital Signs Temp Pulse Pulse Resp BP Pulse Ox O2 Del Method 03/06/23 08:37 85 20 135/77 95 Room Air 11/02/23 08:12 36.5 C 72 17 145/77 H 94 Room Air 03/06/23 07:28 88 03/06/23 02:35 36.5 C 82 18 167/88 H 92 Room Air 03/05/23 23:42 75 03/05/23 23:07 Room Air Laboratory Results As detailed in HPI
[2023-03-06] MEDS: SODIUM CHLORIDE 0.9% 1,000 ML IV SCH (11:48)
[2023-03-06] MEDS: CALCITONIN SALMON 400 UNITS/2 ML SQ SCH ×2 (11:48→21:01)
[2023-03-06] MEDS: FUROSEMIDE INJ 20 MG/2 ML VIAL IV SCH ×2 (11:50→20:45)
--- NOTE | 2023-03-06 11:58 | Ultrasound Report ---
ULTRASOUND BILATERAL LOWER EXTREMITY VENOUS CLINICAL HISTORY: Leg pain. COMPARISON STUDY: Left lower extremity venous ultrasound dated 10/20/2018. TECHNIQUE: Real-time, grayscale, and color Doppler sonography of the deep veins of the right and left lower extremity was performed from the inguinal crease to the calf. Compression and augmentation wer e utilized. FINDINGS: There is no sonographic evidence of deep venous thrombosis identified in the right or left lower extremity. The common femoral, superficial femoral, and popliteal veins are patent and normally compressible bilaterally. The greater saphenous vein and the profunda femoris vein at the junction w ith the common femoral vein are clear in both legs. The visualized calf veins are patent bilaterally. IMPRESSION: There is no sonographic evidence of deep venous thrombosis identified in the right or lef t lower extremity. ACT 112: Negative or not required by law. Electronically signed by: Minesh Wells M.D. 03/06/2023 11:57 AM
--- NOTE | 2023-03-06 12:32 | Palliative Care Consultation ---
Date of Consultation March 06, 2023 Assessment & Plan (1) Cancer related pain: ineffective pain regimen, patient states meds are not lasting long enough Will inc TDF to 100mcg and increased Oxy IR to 15mg PO q4h prn/hold for somnolence or RR<14/min (2) Dyspnea and respiratory abnormalities: (3) Weakness generalized: (4) Palliative care by specialist: Met with pt/no family was present at the time of my visit. Provided overview of Palliative Medicine, a subspecialty that provides specialized medical care for people living with a serious illness by offering a focus on quality of life. Palliative Medicine is often conflated with hospice: I advised patient/family that Palliative and hospice can be partners but we are not the same. It is important to understand the difference so that we may be informed, and not afraid. Palliative Medicine works to improve QOL through reduction of symptom burden/more control over their illness, for both the patient and family. Palliative medicine clinicians are board certified, specially-trained and another member of the patient's medical care team. We often provide an extra layer of support because our care is based on the needs of the patient, not the prognosis; as such, it's appropriate at any age/advancing stage of a serious illness and can be provided along with curative treatment. Palliative Medicine clinicians are also trained in advanced communication methodologies, to facilitate complex discussions about advanced illness planning, which are needed to help assure that the treatment choices match the patient's goals, aka delivering Goal Concordant care. Finally, we discussed that hospice is a visiting nurse service that focuses on care delivered at the very end of life for patients with terminal illness, with life expectancy less than 6 month. (5) Advanced care planning/counseling discussion: ACP x 20 min face to face: pt states he is frustrated by cancer and current situation. Acknowledges there may not be much signif benefit with cancer therapy and he is finding it hard to tolerate. Appetite is falling, supplements are hard to tolerate, he does not like the dairy generic for Ensure and notes brand names (ensure, boost, breeze) are too costly. He is unsure what he wants to do, needs time to think and speak with his . Does not feel ready for hospice. Notes pain is the biggest issue affecting his QOL and if this was better maybe he would better tolerate other things. (6) Metastatic squamous cell carcinoma to lung: Plan * Pain regimen changed to TDF 100mcg q72hr + Oxy IR 15mg PO q4h prn BTP, new orders written * ACP discussion as noted above, he wants to think about things and speak with , no new decisions today and he does not want hospice at this time. * Will continue to follow in our OP clinic. Thank you for allowing us to participate in the ongoing care of this patient. Please don't hesitate to call or page with any additional concerns. Dr. Yeimi Mcmillan DNP Director, Palliative Care History of Present Illness Reason for Consultation: Lung cancer, back pain Attending Physician: Sylvain Armstrong MD History of Present Illness 68yo gentleman with met SCC of lung, presents with hypercalcemia likely d/t bony mets He has a history of CLL, diagnosed in 2016. He has had significant weight loss and low back pain. PET scan done in March shows marked FDG avidity in right paratracheal and internal mammary lymph nodes. He was noted to have an 11mm spiculated nodule in the right apex on CT done in March, though there was not significant uptake. He did have bronchoscopy with bronchoalveolar lavage and pathology was consistent with SCC of the lung. He was also found to have a sub acute compression fracture at L2. He has chronic low back pain and has left leg pain and weakness from a previous unrelated fracture. More reently, oncology notes reveal: "Squamous cell carcinoma with suspicion for hepatic mets on November imaging. He has a history of lumbar compression fracture and lytic lesions in the pelvis though bone scan in August did not suggest that these were metastases. Certainly has locally advanced disease in the lung with a large lung mass, possible satellite nodules/pulmonary metastases, and si gnificant mediastinal node involvement." Allergies Allergy/AdvReac Type Severity Reaction Status Date / Time morphine Allergy Intermediate Hives, Verified 03/05/23 17:09 Shakes Home Medications Medication Instructions Recorded Confirmed Type alendronate 70 mg tablet (Fosamax) 70 mg PO WK 03/26/18 03/05/23 History aspirin 81 mg tablet,delayed 81 mg PO QAM 03/26/18 03/05/23 History release metformin 1,000 mg tablet 1,000 mg PO QAM 03/26/18 03/05/23 History calcium carbonate 500 mg-vitamin 1 tab PO QAM 05/14/19 03/05/23 History D3 5 mcg (200 unit) tablet (Calcium 500 + D) cyanocobalamin (vitamin B-12) 1,000 mcg PO QAM 05/14/19 03/05/23 History 1,000 mcg tablet (Vitamin B-12) lisinopril 40 mg tablet (Zestril) 20 mg PO QAM 05/14/19 03/05/23 History docusate sodium 100 mg capsule 100 mg PO DAILY PRN Constipation 06/08/19 History (Colace) fentanyl 75 mcg/hr transdermal 1 patch transdermal Q72H 07/18/22 03/05/23 History patch ferrous sulfate 325 mg (65 mg 325 mg PO QAM 07/18/22 03/05/23 History iron) tablet (Iron (ferrous sulfate)) acetaminophen 325 mg tablet 650 mg PO Q8 PRN Pain 09/09/22 03/05/23 History multivitamin 1 tab PO QAM 09/09/22 03/05/23 History oxycodone 10 mg tablet 10 mg PO Q4H PRN pain #60 tabs 10/15/22 03/05/23 Rx ascorbic acid (vitamin C) 1,000 mg 1 g PO QAM 03/05/23 03/05/23 History tablet (Vitamin C) Patient History Medical History (Updated 03/06/23 @ 15:40 by He Frost MD) Atelectasis Hx MRSA infection in elbow wound several yrs ago > resolved Osteoarthritis Osteoporosis H. 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 History of right inguinal hernia repair 06/08/19 LMA#5. History of open reduction and internal fixation (ORIF) procedure x3--LEFT LEG FEMUR HAS DEVYN 09/25/18 LMA#5. History of back surgery HAD FX AND FUSION OF LUMBAR Family History Mother Family history of diabetes mellitus Other No family history of adverse response to anesthesia Social History Smoking Status: Current every day smoker Tobacco Type: Cigarettes Cigarettes Per Day: <1 ppd; Second Hand Exposure: No; Do You Dip or Chew Tobacco: Yes; Hx Alcohol Use: Yes Alcohol type: beer Hx Substance Use: No Preferred Language: Welsh Communication Ability: Effective Visual Impairment: No Limitations Hearing Ability: Hard of Hearing Thread Reeler Required: No Beliefs That Will Affect Care: None marital status: Current Living Situation: Spouse current occupational status: retired Other Information That Helps Us Care for You: No Feels Safe at Home: Yes Safety Concerns: Feels Safe At This Time during the past year weight has: decreased > 10 lbs Assistive Devices: Cane Review of Systems Review of Systems: All systems reviewed & are unremarkable except as noted in Subjective Physical Exam Physical Exam: chronically ill male resting in bed sl disheveled coarse bronchitic cough bitemp wasting prominent neck veins diminished breath sounds and rhonchi, no wheezing S1S2, no murmur Abd soft, non tender PALOMO with gen weakness Skin warm but pale AAOx3 Results & Data Vital Signs (Past 12 Hours) Vital Signs Temp Pulse Pulse Resp BP Pulse Ox O2 Del Method 03/06/23 11:30 36.6 C 73 17 139/77 95 Room Air 03/06/23 08:37 85 20 135/77 95 Room Air 03/06/23 08:12 36.5 C 72 17 145/77 H 94 Room Air 03/06/23 07:28 88 03/06/23 02:35 36.5 C 82 18 167/88 H 92 Room Air Laboratory Results data reviewed Diagnostic Findings data reviewed PG Care Time/CCT Total # of Minutes Spent Total Time Spent with Patient: Total time spent is greater than 50% in coordination of care (as documented) at patient's floor/unit and/or counseling patient: Advanced Care Planning 61485 Advanced Care Planning 30 [place] [address] IN/OBS CONSULT LVL 5,80M Patient Type New Medical Decision Making High Complexity Diagnoses Cancer related pain G89.3 Dyspnea and respiratory abnormalities R06.00; R06.89 Weakness generalized R53.1 Palliative care by specialist Z51.5 Advanced care planning/counseling discussion Z71.89 Metastatic squamous cell carcinoma to lung C78.00 Additional Codes Advanced Care Planning - 15195 Advanced Care Planning 30 Min: 15333 Advanced Care Planning 30 Min ([id number])
--- NOTE | 2023-03-06 13:11 | Hospitalist Progress Note ---
Date of Service March 06, 2023 Assessment & Plan (1) Malignant neoplasm of unspecified part of right bronchus or lung: (2) Back pain: (3) Chronic lymphoid leukemia: (4) History of back surgery: (5) Tobacco use: (6) COPD with emphysema: (7) Anemia: Plan: 68yo M with PMhx of tobacco use, COPD, DM II, HTN, elevated PSA, hx of CLL in 2016, microcytic anemia, locally advanced Squamous cell carcinoma diagnosed in July 2022 BACK PAIN LIKELY FROM T6, L2 COMPRESSION FRACTURES, LIKELY FROM METASTASIS (Pathological fractures in neoplastic disease to thoracic and lumbar vertebrae) SQUAMOUS CELL LUNG CA - Fentanyl patch PRN Dilaudid, Oxycodone Ortho Spine consulted declines Radiation Therapy evaluation - likely representing Metastatic Lung CA patient declining aggressive measures including chemotherapy, surgery, radia tion Palliative Care consulted Oncology also on board HYPERCALCEMIA - Nephro consulted IV NSS and Lasix IV ordered - monitor LOW PHOSPHORUS, K - Severe protein-calorie malnutrition - replaced - from poor oral intake Boost ordered Nutrition consult RLL COLLAPSE LIKELY FROM MUCUS PLUG - Possible aspiration pneumonia component - on room air - Pulm consulted History of CLL Microcytic anemia - stable Constipation -Follow, hold iron for now - Bowel regimen DM II - ISS with Accu-Cheks ACHS, check A1C with am lab -Holding metformin -Patient does not check glucose at home Chronic tobacco use COPD -Patient is still smoking 3 cigarettes daily, cessation encouraged -Patient denies need for nicotine patch -Has Proventil inhaler at home, uses this as needed, recently prescribed 1 month ago for viral infection where he completed his prednisone taper and doxycycline 1 week DVT ppx: teds, scds Lines: 2 PIV GI/FEN: Allow regular diet CODE: DNR/DNI - discussed care and goals with patient and family at bedside. Dispo: pending anticipate d/c home when medically stable plan of care discussed with patient in detail and at length all questions answered he is understanding, agreeable, comfortable with the plan of care per admitting service notes: Squamous cell lung carcinoma History of CLL Microcytic anemia Hypokalemia -Admit to [facility] with telemetry - Hx of mediastinal adenopathy upon EUBS was found to have locally advanced Squamous cell carcinoma diagnosed in July 2022, although mediastinal adenopathy and weight loss was initially detected in Mar 2022. Pt has been reluctant to consider treatment therapies for multiple reasons including financial concerns and issues related to treatment. He was seen by radiation oncology for treatment in September 2022 but declined radiation therapy at that time as well. Palliative care had been consulted and involved in his care at that time as well. He has not met with any of these providers since November. -Found to have hypokalemia of 2.5 and hypercalcemia of 13.8 on admission. ER has started IV fluids and xometa to correct. Pt has significant edema in legs bilaterally, monitor volume status with strict I/Os. - Check CT thoracic and lumbar spine due to acutely worsening pain - concern for pathological vs compression fracture vs metastasis to spine causing increased pain - worsening progression of disease 1. Interval development of a moderate to severe inferior endplate compression fracture at T6 consistent with an acute to subacute fracture. 2. Multiple additional chronic mild endplate compression deformities seen throughout the majority of the thoracic spine remain unchanged. 3. Increase in size in the right mediastinal/paratracheal mass. Multiple scattered pulmonary nodules have also progressed consistent with metastatic disease. 4. There is a small right pleural effusion. 5. Partial mucoid opacification the right lower lobe bronchi with patchy airspace opacities at the right lung base. This may represent an aspiration pneumonitis. 1. Progressive loss of height along the right side of the moderate to severe compression deformity at L2. This favors a subacute to chronic compression fracture. No definite acute fractures within the lumbar spine. 2. Additional chronic compression deformities and postoperative changes within the lumbar spine as described above. - Consult oncology - follows with Dr. Tyler as outpatient - Consult palliative care -we discussed at bedside patient is agreeable to DNR/DNI, was supposed to have outpatient follow-up with oncology this Friday, he is agreeable to more symptom management and quality of life at this time per our discussion - Pulmonology consulted for R hemithorax -Fentanyl 75 mcg, oxycodone 10 mg every 4 hours continue, IV Dilaudid as needed severe breakthrough pain - may require further pain med titration up throughout hospital stay -Bowel regimen with MiraLAX, Dulcolax, Senokot as needed -Troponin noted to be elevated at 56.8 but pt is denying chest pain, no acute EKG changes, will check one more set, no previous troponin to compare to. -Hypokalemia 2.5 on admission, given 20 meq in the ER, add 40 meq IV and additional 20 meq PO now Admission and Anticipated Discharge Date Admission Date: March 05, 2023 Subjective ff up for back pain, hypercalcemia, etc seen resting in bed, comfortable states he was having back/chest pain earlier in AM, resolved after pain medication denies active chest pain, nausea, palpitations, dizziness denies cough, shortness of breath, fever/chills no leg pain appetite is poor no other new symptoms Review of Systems Review of Systems: all noted and negative except for above Physical Exam Physical Exam: General- oriented x 3, not in distress, speaks in sentences with no effort or a ccessory muscle use Eyes- anicteric Neck- no JVD Lungs- clear breath sounds bilaterally, no rales/wheezes Heart- normal rate, regular rhythm; no murmurs Abdomen- normal bowel sounds, nondistended, soft, no tenderness Extremities- mild lower ext edema no erythema/tenderness Neuro- alert, oriented x 3; no gross focal neurologic deficits Skin- warm & dry Results & Data Results & Data Vital Signs (Past 12 Hours) Vital Signs Temp Pulse Pulse Resp BP Pulse Ox O2 Del Method 03/06/23 11:30 36.6 C 73 17 139/77 95 Room Air 03/06/23 08:37 85 20 135/77 95 Room Air 03/06/23 08:12 36.5 C 72 17 145/77 H 94 Room Air 03/06/23 08:00 Room Air 03/06/23 07:28 88 03/06/23 02:35 36.5 C 82 18 167/88 H 92 Room Air all noted and reviewed including below
[2023-03-06] MEDS: fentaNYL 100 MCG/HR TDSY TD SCH (15:23)
--- NOTE | 2023-03-06 15:44 | Pulmonary Consultation ---
Date of Consultation March 06, 2023 Assessment & Plan (1) Metastatic squamous cell carcinoma to lung: (2) Atelectasis: Plan 68-year-old male with diffusely metastatic squamous cell carcinoma of the lung presenting with malignant hypercalcemia. Chest x-ray revealed volume loss of t he right hemithorax, small pleural effusion and massive mediastinal adenopathy. Patient is saturating in the high 90s on room air. He he has some mild chest tightness but denies any overt shortness of breath at present. He has volume loss in his right lung likely due to progression of his squamous cell lung cancer. He has refused treatment of his cancer per the prior oncology notes notes. Oncology and palliative care is following. Agree with a palliative approach to his care at this time. Patient is too frail to undergo bronchoscopy and it is unlikely to alter the course of his treatment at this time. Recommend aspiration precautions otherwise. No further recommendations at this time. Thank you for allowing me to participate in the care of the patient. Please call with questions. History of Present Illness Reason for Consultation: "Pneumonitis, R hemithorax" Attending Physician: Sylvain Armstrong MD History of Present Illness 68-year-old male with a history of squamous cell carcinoma of the lung confirmed on mediastinal lymph node biopsy who presented to the hospital due to back pain. Pulmonary was consulted due to enlarging mass noted on his CT chest. Patient endorses tightness in his chest and occasional cough. Denies any fevers, chills or night sweats. He has had significant weight loss and decreased appetite over the past 2 months. He is also currently being treated for hypercalcemia which is thought to be paraneoplastic. I reviewed the CT chest imaging from 11/12/2022 which reveals bulky mediastinal lymphadenopathy and right upper lobe pulmonary nodules consistent with metas tases. Numerous hepatic lesions were noted incidentally as well. There is no clear evidence of pneumonia. I reviewed the radiology interpretation and agree with their interpretation. Chest x-ray from 03/05/2023 with evidence of a right pleural effusion and massive mediastinal adenopathy. There also appears to be some mild volume loss. Allergies Allergy/AdvReac Type Severity Reaction Status Date / Time morphine Allergy Intermediate Hives, Verified 03/05/23 17:09 Shakes Home Medications Medication Instructions Recorded Confirmed Type alendronate 70 mg tablet (Fosamax) 70 mg PO WK 03/26/18 03/05/23 History aspirin 81 mg tablet,delayed 81 mg PO QAM 03/26/18 03/05/23 History release metformin 1,000 mg tablet 1,000 mg PO QAM 03/26/18 03/05/23 History calcium carbonate 500 mg-vitamin 1 tab PO QAM 05/14/19 03/05/23 History D3 5 mcg (200 unit) tablet (Calcium 500 + D) cyanocobalamin (vitamin B-12) 1,000 mcg PO QAM 05/14/19 03/05/23 History 1,000 mcg tablet (Vitamin B-12) lisinopril 40 mg tablet (Zestril) 20 mg PO QAM 05/14/19 03/05/23 History docusate sodium 100 mg capsule 100 mg PO DAILY PRN Constipation 06/08/19 03/05/23 History (Colace) fentanyl 75 mcg/hr transdermal 1 patch transdermal Q72H 07/18/22 03/05/23 History patch ferrous sulfate 325 mg (65 mg 325 mg PO QAM 07/18/22 03/05/23 History iron) tablet (Iron (ferrous sulfate)) acetaminophen 325 mg tablet 650 mg PO Q8 PRN Pain 09/09/22 03/05/23 History multivitamin 1 tab PO QAM 09/09/22 03/05/23 History oxycodone 10 mg tablet 10 mg PO Q4H PRN pain #60 tabs 10/15/22 03/05/23 Rx ascorbic acid (vitamin C) 1,000 mg 1 g PO QAM 03/05/23 03/05/23 History tablet (Vitamin C) Patient History Medical History (Updated 03/06/23 @ 15:40 by He Frost MD) Atelectasis Hx MRSA infection in elbow wound several yrs ago > resolved Osteoarthritis Osteoporosis H. 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 History of right inguinal hernia repair 06/08/19 LMA#5. History of open reduction and internal fixation (ORIF) procedure x3--LEFT LEG FEMUR HAS DEVNY 09/25/18 LMA#5. 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 Cachectic and frail appearing male Eyes: Pupils are equal round and reactive to light. Conjunctivae are normal. Anicteric sclera. Ears nose, mouth and throat: Mallampati class 2. Normal posterior oropharynx. Uvula is midline. Neck: Trachea is midline. Visual inspection is normal. Respiratory: Clear to auscultation with mild diminished at the bases. Cardiovascular: Regular rate and rhythm. No murmurs. No edema. Gastrointestinal: Normal bowel sounds, soft, nontender and nondistended. No hepatosplenomegaly noted. Musculoskeletal: No cyanosis. Patient is able to move all extremities. Strength is 5 out of 5 in the upper and lower extremities. Skin: No rashes, warm dry and intact. Neurologic: No obvious focal neurological deficits seen. Psychiatric: Alert and oriented x3 with a euthymic affect. Results & Data Results & Data Vital Signs (Past 12 Hours) Vital Signs Temp Pulse Pulse Resp BP Pulse Ox O2 Del Method 11/02/23 11:30 36.6 C 73 17 139/77 95 Room Air 03/06/23 08:37 85 20 135/77 95 Room Air 03/06/23 08:12 36.5 C 72 17 145/77 H 94 Room Air 03/06/23 08:00 Room Air 03/06/23 07:28 88 PG Care Time/CCT Total # of Minutes Spent Total Time Spent with Patient: Total time spent is greater than 50% in coordination of care (as documented) at patient's floor/unit and/or counseling patient: Coding Level of Care Code 07919 INT INP/OBS CARE MIN Diagnoses Metastatic squamous cell carcinoma to lung C78.00 Atelectasis J98.11
--- NOTE | 2023-03-06 16:41 | Electrocardiogram Report ---
Test Reason : Blood Pressure : / mmHG Vent. Rate : 077 BPM Atrial Rate : 077 BPM P-R Int : 162 ms QRS Dur : 100 ms QT Int : 382 ms P-R-T Axes : 052 -72 054 degrees QTc Int : 432 ms Sinus rhythm with occasional Premature ventricular complexes Low voltage QRS Incomplete right bundle branch block Left anterior fascicular block Abnormal ECG When compared with ECG of 05-MAR-2023 14:42, No significant change was found Confirmed by Ricki Gutierrez ([id number]) on 03/06/2023 4:40:34 PM Referred By: REFERRED SELF Confirmed By:Ubaldo Gutierrez
[2023-03-06] MEDS: HYDROmorphone INJ 0.5 MG/0.5 ML SYR IV PRN (22:47)
[2023-03-07] MEDS: CHECK fentaNYL PATCH PLACEMENT SCH ×3 (00:12→16:27)
[2023-03-07] MEDS: SODIUM CHLORIDE 0.9% 1,000 ML IV SCH ×2 (00:16→12:17)
[2023-03-07] MEDS: oxyCODONE HCL IR 5 MG TAB (IMMEDIATE RELEASE) PO PRN ×5 (02:58→22:46)
--- NOTE | 2023-03-07 06:40 | Hospitalist Progress Note ---
Date of Service March 06, 2023 Assessment & Plan (1) Metastatic squamous cell carcinoma to lung: Plan: I met for 45 minutes with the patient, his , and daughter. He was alert and participated in the conversation and seems to have good retention of medical decision-making capacity. We discussed his disease and prognosis noting the dramatic advancement within the thorax, probable metastases to the back, and overall situation where with his poor performance status any attempted omcologic treatment is more likely to cause harm than good. There is no role for surgical intervention, beyond palliative help to the back there is no role for radiation at this time, any attempted systemic chemotherapy could have dramatic toxicity particularly with respect to cytopenias and would have a great difficulty in overcoming the tumor burden he faces. He continues to wish no chemotherapy in any case. His primary desire would be to get pain control and go home. He had balked at the concept of hospice earlier in the day when presented that by palliative care but in an extensive discussion this evening I have advocated that this is the best way to achieve his primary goals. We have emphasized that palliative care would do nothing to accelerate the end of his life though we have also clearly indicated that palliative care's job would be to optimize quality of life but not artificially extend it. He does reiterate that he does not want to be resuscitated or intubated. He, his , and daughter seem to well understand the hospice concept as his 's father was on hospice at the end of his life. Although the ptosis on the left is a new finding and still concerning for possible ACADEMIC GUIDANCE SPECIALIST involvement, without more significant neurologic issues elsewhere and based on his desire not to pursue to any diagnostic procedures, we can forego any ACADEMIC GUIDANCE SPECIALIST imaging. Neither does there seem to be any role for vertebroplasty or more active intervention for the back aside from checking with radiation oncology as to whether they could offer any quick very hypofractio nated radiation to see if that would help to ameliorate some of the localized pain at his T6 fracture Would work to quickly get him home. I have also made very clear that while he is doing reasonably well for now, any significant new event (pneumonia, bleeding, MN, CVA) could quickly change his status and his survival might be quite short. We discussed that while there would be no interventions intended to accelerate the end of his life, hospice would be very aggressive with pain management so long as the goal is to achieve reasonable pain control even to the point of giving doses that might impair his breathing and shorten life as an unfortunate secondary consequence Plan 1. Would ask radiation oncology whether very hypofractionated radiation to the back perhaps even single dose might at all help with his pain management 2. In collaboration with palliative care would optimize his pain regimen here but also work with discharge planning to transition to hospice at home Admission and Anticipated Discharge Date Admission Date: March 05, 2023 Subjective Patient is alert and getting at least partial relief with current pain regimen. Pain continues to be focused in the mid thoracic spine. He is not complaining of headache or major neurological change Physical Exam Physical Exam: Vital signs are stable. He continues with a left ptosis but is alert and appropriate in conversation and moving all 4 extremities without dramatic neurologic issues elsewhere Breath sounds are decreased but he is showing no stridor tachypnea or use of accessory muscles Cardiac rhythm is regular The abdomen seems benign Results & Data Results & Data Vital Signs (Past 12 Hours) Vital Signs Temp Pulse Pulse Resp BP BP Pulse Ox 03/07/23 03:07 36.8 C 89 20 131/81 93 03/06/23 23:00 36.4 C L 84 20 125/78 95 03/06/23 21:58 79 03/06/23 20:42 36.4 C L 77 20 143/81 H 97 03/06/23 19:41 O2 Del Method 03/07/23 03:07 Room Air 03/06/23 23:00 Room Air 03/06/23 21:58 03/06/23 20:42 Room Air 03/06/23 19:41 Room Air PG Care Time/CCT Total # of Minutes Spent Total Time Spent with Patient: Total time spent is greater than 50% in coordination of care (as documented) at patient's floor/unit and/or counseling patient: Coding Level of Care Code 94180 SUB INP/OBS CARE 2/35MIN Diagnoses Metastatic squamous cell carcinoma to lung C78.00 Time Spent (min) 45 Comment This note documents a visit and family meeting from 03/06/2023
[2023-03-07 07:03] LABS: Basophils # (auto) 0.03 K/uL (0.00-0.20); Basophils % (auto) 0.2 %; Eosinophils # (auto) 0.04 K/uL (0.00-0.50); Eosinophils % (auto) 0.3 %; Hematocrit (blood only) 31.6 % (42.0-52.0); Hemoglobin 10.6 g/dl (14.0-18.0); Immature Granulocytes # (auto) 0.07 K/uL (0.01-0.20); Immature Granulocytes % (auto) 0.5 %; Lymphocytes # (auto) 2.35 K/uL (1.20-3.40); Lymphocytes % (auto) 15.1 %; Mean Corpuscular Hgb Conc 33.5 g/dL (32.0-36.0); Mean Corpuscular Volume 83.4 fL (80.0-100.0); Mean Platelet Volume 10.2 fL (9.4-12.4); Monocytes # (auto) 1.09 K/uL (0.11-0.59); Neutrophils # (auto) 11.96 K/uL (1.40-6.50); Neutrophils % (auto) 76.9 %; Platelet Count 312 K/uL (130-400); RDW Coefficient of Variation 13.8 % (11.5-14.5); RDW Standard Deviation 41.9 fL (36.4-46.3); Red Blood Count 3.79 M/uL (4.70-6.10); White Blood Count 15.54 K/ul (4.8-10.8)
[2023-03-07 07:17] LABS: Albumin Globulin Ratio 1.3 (0.9-2); Albumin Level 3.5 gm/dl (3.4-5.0); BUN Creatinine Ratio 16.3 (10-20); Bilirubin,Total 0.6 mg/dl (0.2-1.0); Calcium 11.1 mg/dl (8.6-10.3); Creatinine Clr Calc Pharmacy 55.8 ml/min; Est GFR (African American) 90.2 ml/min; Est GFR (Non-African American) 77.8 ml/min; Globulin 2.7 gm/dl (2.5-4.0); Magnesium 1.6 mg/dl (1.7-2.4); Phosphorus 1.8 mg/dl (2.5-4.9); Potassium 2.8 mmol/L (3.5-5.1); Total Protein 6.2 gm/dl (6.0-8.3)
[2023-03-07] MEDS: CYANOCOBALAMIN (B-12) 500 MCG TABLET PO SCH (08:39)
[2023-03-07] MEDS: DOCUSATE SODIUM/SENNA 50/8.6MG TAB PO SCH ×2 (08:39→20:33)
[2023-03-07] MEDS: ASPIRIN 81 MG ECTAB PO SCH (08:40)
[2023-03-07] MEDS: MULTIVITAMIN TAB PO SCH (08:40)
[2023-03-07] MEDS: ASCORBIC ACID 500 MG TAB PO SCH (08:40)
[2023-03-07] MEDS: FUROSEMIDE INJ 20 MG/2 ML VIAL IV SCH ×2 (08:40→20:33)
[2023-03-07] MEDS: POLYETHYLENE (MIRALAX) 17 GM PACK PO SCH (08:40)
[2023-03-07] MEDS ORDERED: MAGNESIUM SULFATE / D5W 1 GM/100 ML BAG IV ONE (08:46)
[2023-03-07] MEDS ORDERED: POTASSIUM CHLORIDE CRTAB 20 MEQ TABCR PO STA (08:46)
[2023-03-07] MEDS ORDERED: POTASSIUM PHOS 3 MMOL/1 ML INFUSION IV STA ×2 (08:46→10:39)
[2023-03-07] MEDS ORDERED: POTASSIUM PHOSPHATE 15 MMOL in SODIUM CHLORIDE 0.9% 250 ML IV ONE ×2 (09:15→12:15)
[2023-03-07] MEDS: INSULIN ASPART PER UNIT CHARGE SC SCH ×4 (10:05→20:34)
[2023-03-07] MEDS: CALCITONIN SALMON 400 UNITS/2 ML SQ SCH (10:44)
[2023-03-07] MEDS ORDERED: MAGNESIUM SULFATE / D5W 1 GM/100 ML BAG IV SCH (10:45)
--- NOTE | 2023-03-07 10:48 | Nephrology Progress Note ---
Date of Service March 07, 2023 Assessment & Plan Admission and Anticipated Discharge Date Admission Date: March 05, 2023 Subject[place] [address] Nephrology Consultation Signed with Ivonne Patient: JAYY ALVARZE Admit Date: 03/05/23 MR#: [id number] Att Phy: Sylvain Armstrong MD Acct ID: [id number] [place] Phy: Peggy Ashton MD Date: 1955 Fam Phy: Age: 68 Assessment & Plan (1) Hypercalcemia: Hypercalcemia with the presenting calcium of 13.8 in the setting of metastatic cancer. Patient has refused all kind of treatment for cancer. It appears that the cancer is quite advanced and is at the palliative stage at this time. He already received 1 dose of Zometa. He is currently getting IV fluid but he is massively edematous. Given this I would also like to give some Lasix. However he does have low potassium also. He is getting potassium phosphate for low phosphate. Given his very very poor oral intake and nutrition it is nearly impossible to manage all his electrolyte. However while he is in the hospital it is possible to correct and will do. (2) Hypokalemia: Give 30 mmol k phos. correct low mag also. s--no new issues.Not eating much. Not hospice yet but heading there. Physical exam-----elderly white male who appears frail and very weak. He is also cachectic. Blood pressure is 135 x 77 pulse rate 85 temperature 36.5 C 95% on room air Mucous membrane is moist Neck is supple no JVD Chest bilateral rhonchi at the bases. Very poor inspiratory effort so limited quality of the exam CVS S1-S2 regular soft systolic murmur heard Abdomen is soft nontender Extremities shows 2+ pitting edema up to the lower thigh Neurological very somnolent barely opens eyes unable to get any history Results & Data Vital Signs (Past 12 Hours) Vital Signs Temp Pulse Pulse Resp BP BP Pulse Ox 03/07/23 07:47 36.9 C 85 20 124/69 95 03/07/23 07:12 79 03/07/23 03:07 36.8 C 89 20 131/81 93 03/06/23 23:00 36.4 C L 84 20 125/78 95 O2 Del Method 03/07/23 07:47 Room Air 03/07/23 07:12 03/07/23 03:07 Room Air 03/06/23 23:00 Room Air
--- NOTE | 2023-03-07 14:09 | Orthopedic Consultation ---
Date of Consultation March 07, 2023 Assessment & Plan (1) Closed compression fracture of thoracic vertebra: I reviewed the patient's clinical situation with him in detail. He is not interested in any type of surgical approach at this point. As long as his pain is well controlled is reasonable to move forward with radiation oncology. He is at high risk for any type of procedure with general anesthesia given his lung status. I have had a discussion with his via the telephone as well and she is in agreements that they do not want any further spine surgeries. Please contact us if there are any changes in his current medical plan. I have reviewed the case with Dr. Stahl and he agrees. (2) Compression fx, lumbar spine: History of Present Illness Attending Physician: Sylvain Armstrong MD History of Present Illness Patient was seen bedside in room 287 were asked to see the patient due to metastatic squamous cell cancer and T6 and L2 fractures that are pathologic in nature. He was admitted to the emergency room on March 05, 2023 with intractable pain. He states today his pain is better controlled. He has generalized pain throughout his entire spine. He is not having jodi radicular complaints. He has not noted any weakness in his legs. He had an evaluation with hematology oncology as well as radiation oncology. Their plan at this point is to get possible radiation to these areas to help with pain control and to get him home with hospice services. He denies any other numbness, tingling, or paresthesias. Allergies Allergy/AdvReac Type Severity Reaction Status Date / Time morphine Allergy Intermediate Hives, Verified 03/05/23 17:09 Shakes Home Medications Medication Instructions Recorded Confirmed Type alendronate 70 mg tablet (Fosamax) 70 mg PO WK 03/26/18 03/05/23 History aspirin 81 mg tablet,delayed 81 mg PO QAM 03/26/18 03/05/23 History release metformin 1,000 mg tablet 1,000 mg PO QAM 03/26/18 03/05/23 History calcium carbonate 500 mg-vitamin 1 tab PO QAM 05/14/19 03/05/23 History D3 5 mcg (200 unit) tablet (Calcium 500 + D) cyanocobalamin (vitamin B-12) 1,000 mcg PO QAM 05/14/19 03/05/23 History 1,000 mcg tablet (Vitamin B-12) lisinopril 40 mg tablet (Zestril) 20 mg PO QAM 05/14/19 03/05/23 History docusate sodium 100 mg capsule 100 mg PO DAILY PRN Constipation 06/08/19 03/05/23 History (Colace) fentanyl 75 mcg/hr transdermal 1 patch transdermal Q72H 07/18/22 03/05/23 History patch ferrous sulfate 325 mg (65 mg 325 mg PO QAM 07/18/22 03/05/23 History iron) tablet (Iron (ferrous sulfate)) acetaminophen 325 mg tablet 650 mg PO Q8 PRN Pain 09/09/22 03/05/23 History multivitamin 1 tab PO QAM 09/09/22 03/05/23 History oxycodone 10 mg tablet 10 mg PO Q4H PRN pain #60 tabs 10/15/22 03/05/23 Rx ascorbic acid (vitamin C) 1,000 mg 1 g PO QAM 03/05/23 03/05/23 History tablet (Vitamin C) Patient History Medical History (Updated 03/06/23 @ 15:40 by He Frost MD) Atelectasis Hx MRSA infection in elbow wound several yrs ago > resolved Osteoarthritis Osteoporosis H. 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 History of right inguinal hernia repair 06/08/19 LMA#5. History of open reduction and internal fixation (ORIF) procedure x3--LEFT LEG FEMUR HAS DEVYN 09/25/18 LMA#5. 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 He answers questions appropriately. He is hard of hearing. His strength is 5 out of 5 to detailed muscle testing both lower extremities. Sensations intact to light touch. Visual diaz are grossly intact. Abdomen soft and nontender calves are supple nontender. Cardiovascular exam reveals no gross abnormalities. Results & Data Vital Signs (Past 12 Hours) Vital Signs Temp Pulse Pulse Resp BP BP Pulse Ox 03/07/23 11:12 36.5 C 74 18 131/66 96 03/07/23 07:47 36.9 C 85 20 124/69 95 03/07/23 07:12 79 03/07/23 03:07 36.8 C 89 20 131/81 93 O2 Del Method 03/07/23 11:12 Room Air 03/07/23 07:47 Room Air 03/07/23 07:12 03/07/23 03:07 Room Air Diagnostic Findings Films were reviewed revealing multilevel degenerative changes throughout his spine. He has had a previous fusion from L2-L4 which looks like it was done through a lateral approach. There are compression deformities of the T6 and L2 vertebral bodies. The spinal canal is patent. (1) Closed compression fracture of thoracic vertebra Encounter type: initial encounter Qualified Code(s): S22.000A - Wedge compression fracture of unspecified thoracic vertebra, initial encounter for closed fracture (2) Compression fx, lumbar spine Encounter type: initial encounter Lumbar vertebra fracture level: unspecified lumbar vertebra Qualified Code(s): S32.000A - Wedge compression fracture of unspecified lumbar vertebra, initial encounter for closed fracture
[2023-03-07] MEDS: HYDROmorphone INJ 0.5 MG/0.5 ML SYR IV PRN ×2 (14:55→20:33)
--- NOTE | 2023-03-07 15:38 | Hospitalist Progress Note ---
Date of Service March 07, 2023 Assessment & Plan (1) Metastatic squamous cell carcinoma to lung: Plan: (1) Malignant neoplasm of unspecified part of right bronchus or lung: (2) Back pain: (3) Chronic lymphoid leukemia: (4) History of back surgery: (5) Tobacco use: (6) COPD with emphysema: (7) Anemia: Plan: 68yo M with PMhx of tobacco use, COPD, DM II, HTN, elevated PSA, hx of CLL in 2016, microcytic anemia, locally advanced Squamous cell carcinoma diagnosed in July 2022 BACK PAIN LIKELY FROM T6, L2 COMPRESSION FRACTURES, LIKELY FROM METASTASIS (Pathological fractures in neoplastic disease to thoracic and lumbar vertebrae) SQUAMOUS CELL LUNG CA - Fentanyl patch PRN Dilaudid, Oxycodone Ortho Spine consulted Radiation Therapy evaluation - likely representing Metastatic Lung CA patient declining aggressive measures including chemotherapy, surgery Palliative Care consulted Oncology also on board recommend evaluation for radiation therapy for pain control prior to discharge patient and family requesting home with hospice service HYPERCALCEMIA - Nephro consulted IV NSS and Lasix IV ordered - Ca improving, now 11 continue IV fluids and Lasi LOW PHOSPHORUS, K - Severe protein-calorie malnutrition - replaced - from poor oral intake Boost ordered Nutrition consult RLL COLLAPSE LIKELY FROM MUCUS PLUG - Possible aspiration pneumonia component - on room air - Pulm consulted, no procedure planned - continu Incentive Spirometry History of CLL Microcytic anemia - stable Constipation -Follow, hold iron for now - Bowel regimen DM II - ISS with Accu-Cheks ACHS, check A1C with am lab -Holding metformin -Patient does not check glucose at home Chronic tobacco use COPD -Patient is still smoking 3 cigarettes daily, cessation encouraged -Patient denies need for nicotine patch -Has Proventil inhaler at home, uses this as needed, recently prescribed 1 month ago for viral infection where he completed his prednisone taper and doxycycline 1 week DVT ppx: teds, scds Lines: 2 PIV GI/FEN: Allow regular diet CODE: DNR/DNI - discussed care and goals with patient and family at bedside. Dispo: pending anticipate d/c home with hospice after rad tx eval plan of care discussed with patient and in detail and at length all questions answered they are understanding, agreeable, comfortable with the plan of care Admission and Anticipated Discharge Date Admission Date: March 05, 2023 Subjective ff up for hypercalcemia, etc seen resting in bed, sitting up not in distress and family at bedside states he is still having back pain no chest pain, dyspnea, palpitations, dizziness (+) hemoptysis no other new symptoms Review of Systems Review of Systems: all noted and negative except for above Physical Exam Physical Exam: General- oriented x 3, not in distress, speaks in sentences with no effort or accessory muscle use Eyes- anicteric Neck- no JVD Lungs- clear breath sounds bilaterally, no rales/wheezes Heart- normal rate, regular rhythm; no murmurs Abdomen- normal bowel sounds, nondistended, soft, nontender Extremities- no pretibial edema, no calf tenderness Neuro- alert, oriented x 3; no gross focal neurologic deficits Skin- warm & dry Results & Data Results & Data Vital Signs (Past 12 Hours) Vital Signs Temp Pulse Pulse Resp BP Pulse Ox O2 Del Method 03/07/23 15:27 36.5 C 77 18 140/81 96 Nasal Cannula 03/07/23 11:12 36.5 C 74 18 131/66 96 Room Air 03/07/23 08:00 Room Air 03/07/23 07:47 36.9 C 85 20 124/69 95 Room Air 03/07/23 07:12 79 O2 Flow Rate 03/07/23 15:27 3 03/07/23 11:12 03/07/23 08:00 03/07/23 07:47 03/07/23 07:12 all noted and reviewed including below
[2023-03-08] MEDS: CHECK fentaNYL PATCH PLACEMENT SCH ×3 (00:20→16:05)
[2023-03-08] MEDS: SODIUM CHLORIDE 0.9% 1,000 ML IV SCH (01:54)
[2023-03-08] MEDS: HYDROmorphone INJ 0.5 MG/0.5 ML SYR IV PRN ×5 (01:56→23:56)
[2023-03-08] MEDS: oxyCODONE HCL IR 5 MG TAB (IMMEDIATE RELEASE) PO PRN ×4 (05:58→22:42)
[2023-03-08 06:23] LABS: Basophils # (auto) 0.04 K/uL (0.00-0.20); Basophils % (auto) 0.2 %; Eosinophils # (auto) 0.05 K/uL (0.00-0.50); Eosinophils % (auto) 0.3 %; Hematocrit (blood only) 33.8 % (42.0-52.0); Hemoglobin 10.8 g/dl (14.0-18.0); Immature Granulocytes # (auto) 0.11 K/uL (0.01-0.20); Immature Granulocytes % (auto) 0.6 %; Lymphocytes # (auto) 2.55 K/uL (1.20-3.40); Lymphocytes % (auto) 14.4 %; Mean Corpuscular Hemoglobin 27.4 pg (25.0-34.0); Mean Corpuscular Volume 85.8 fL (80.0-100.0); Mean Platelet Volume 10.2 fL (9.4-12.4); Monocytes # (auto) 1.04 K/uL (0.11-0.59); Monocytes % (auto) 5.9 %; Neutrophils # (auto) 13.97 K/uL (1.40-6.50); Neutrophils % (auto) 78.6 %; Platelet Count 312 K/uL (130-400); RDW Coefficient of Variation 13.9 % (11.5-14.5); RDW Standard Deviation 43.4 fL (36.4-46.3); Red Blood Count 3.94 M/uL (4.70-6.10); White Blood Count 17.76 K/ul (4.8-10.8)
[2023-03-08 07:41] LABS: Albumin Globulin Ratio 1.3 (0.9-2); Albumin Level 3.6 gm/dl (3.4-5.0); BUN Creatinine Ratio 17.8 (10-20); Bilirubin,Total 0.8 mg/dl (0.2-1.0); Calcium 10.7 mg/dl (8.6-10.3); Creatinine Clr Calc Pharmacy 53.9 ml/min; Est GFR (African American) 86.9 ml/min; Globulin 2.7 gm/dl (2.5-4.0); Magnesium 1.7 mg/dl (1.7-2.4); Phosphorus 2.5 mg/dl (2.5-4.9); Potassium 3.2 mmol/L (3.5-5.1); Total Protein 6.3 gm/dl (6.0-8.3)
[2023-03-08] MEDS: DOCUSATE SODIUM/SENNA 50/8.6MG TAB PO SCH ×2 (08:53→20:16)
[2023-03-08] MEDS: POLYETHYLENE (MIRALAX) 17 GM PACK PO SCH (08:53)
[2023-03-08] MEDS: ASPIRIN 81 MG ECTAB PO SCH ×2 (08:53→09:00)
[2023-03-08] MEDS: MULTIVITAMIN TAB PO SCH (08:53)
[2023-03-08] MEDS: POTASSIUM CHLORIDE CRTAB 20 MEQ TABCR PO SCH ×2 (08:53→11:20)
[2023-03-08] MEDS: FUROSEMIDE INJ 20 MG/2 ML VIAL IV SCH ×2 (08:53→20:16)
[2023-03-08] MEDS: ASCORBIC ACID 500 MG TAB PO SCH (08:53)
[2023-03-08] MEDS: CYANOCOBALAMIN (B-12) 500 MCG TABLET PO SCH (08:53)
[2023-03-08] MEDS: POTASSIUM CHLORIDE 40 MEQ in SODIUM CHLORIDE 0.9% 1,000 ML IV SCH ×2 (09:08→21:44)
[2023-03-08] MEDS: INSULIN ASPART PER UNIT CHARGE SC SCH ×4 (09:44→21:04)
[2023-03-08] MEDS ORDERED: ALBUTEROL HFA 8 GM INHALER INH ONE (13:34)
[2023-03-08] MEDS ORDERED: ALBUTEROL HFA 8 GM INHALER INH PRN (13:34)
--- NOTE | 2023-03-08 14:15 | Nephrology Progress Note ---
Date of Service March 08, 2023 Assessment & Plan (1) Hypercalcemia: Plan: Hypercalcemia with the presenting calcium of 13.8 in the setting of metastatic cancer. Patient has refused all treatment for cancer. It appears that the cancer is quite advanced and is at the palliative stage at this time. He already received 1 dose of Zometa. He is currently getting IV fluid but had massively edema so lasix was added w/improvement in both volume status and calcium level -continue ns at 80 ml/hr adn lasix 20 mg IV twice daily -daily bmp for now Given his very very poor oral intake and nutrition it is nearly impossible to manage all his electrolyte. However while he is in the hospital will work at least to improve them. (2) Hypokalemia: Plan: Most recent potassium is low again. -added 40 mEq/L K to NS -gave 20 mEq K po x 2 doses Admission and Anticipated Discharge Date Admission Date: March 05, 2023 Subjective tells me his day is "shitty," though pain for short time controlled, no sob, no n/v or abd discomfort Review of Systems 2 Review of Systems: All systems reviewed & are unremarkable except as noted in Subjective Physical Exam 2 Constitutional: well developed, + thin, + frail appearing and cooperative; no acute distress Eyes: EOM intact bilaterally ENMT: Ears: no external ear abnormality Nose: no external nose abnormality Mouth: + dry oral mucous membranes Neck: no nuchal rigidity Respiratory: normal respiratory effort (but slightly dyspneic w/ speech) A uscultation: + diminished lung sounds and + rhonchi Cardiovascular: RRR, no murmur, no edema Gastrointestinal (Abdomen): Inspection/Auscultation: normal bowel sounds P ercussion/Palpation: abdomen soft; abdomen nontender Musculoskeletal: Extremities: strength 5/5 throughout Skin: no rashes, warm and dry Neurologic: [place], fluent speech, no tremor Results & Data Vital Signs (Past 12 Hours) Vital Signs Temp Pulse Pulse Resp BP BP Pulse Ox 03/08/23 11:46 36.4 C L 76 18 138/85 95 03/08/23 07:52 36.5 C 78 18 133/71 93 03/08/23 07:41 03/08/23 06:57 80 03/08/23 03:31 36.6 C 86 18 140/79 92 O2 Del Method O2 Flow Rate 03/08/23 11:46 Nasal Cannula 2 03/08/23 07:52 Room Air 03/08/23 07:41 Nasal Cannula 2 03/08/23 06:57 03/08/23 03:31 Room Air Laboratory Results 03/08/23 05:42 03/08/23 05:42 ca 10.7
--- NOTE | 2023-03-08 16:17 | Hospitalist Progress Note ---
Date of Service March 08, 2023 Assessment & Plan (1) Metastatic squamous cell carcinoma to lung: Plan: (1) Malignant neoplasm of unspecified part of right bronchus or lung: (2) Back pain: (3) Chronic lymphoid leukemia: (4) History of back surgery: (5) Tobacco use: (6) COPD with emphysema: (7) Anemia: Plan: 68yo M with PMhx of tobacco use, COPD, DM II, HTN, elevated PSA, hx of CLL in 2016, microcytic anemia, locally advanced Squamous cell carcinoma diagnosed in July 2022 BACK PAIN LIKELY FROM T6, L2 COMPRESSION FRACTURES, LIKELY FROM METASTASIS (Pathological fractures in neoplastic disease to thoracic and lumbar vertebrae) SQUAMOUS CELL LUNG CA - Fentanyl patch PRN Dilaudid, Oxycodone Ortho Spine consulted Radiation Therapy evaluation - likely representing Metastatic Lung CA patient declining aggressive measures including chemotherapy, surgery Palliative Care consulted Oncology also on board recommend evaluation for radiation therapy for pain control prior to discharge patient and family requesting home with hospice service - pain more manageable today continue above regimen hold ASA due to hemoptysis HYPERCALCEMIA - Nephro consulted IV NSS and Lasix IV ordered - Ca improving, now 10.7 continue IV fluids and Lasix LOW PHOSPHORUS, K - Severe protein-calorie malnutrition - replaced - from poor oral intake Boost ordered Nutrition consult RLL COLLAPSE LIKELY FROM MUCUS PLUG, LUNG CANCER - Possible aspiration pneumonia component - on room air - Pulm consulted, no procedure planned - continue Incentive Spirometry PRN Albuterol History of CLL Microcytic anemia - stable Constipation -Follow, hold iron for now - Bowel regimen DM II - ISS with Accu-Cheks ACHS, check A1C with am lab -Holding metformin -Patient does not check glucose at home Chronic tobacco use COPD -Patient is still smoking 3 cigarettes daily, cessation encouraged -Patient denies need for nicotine patch -Has Proventil inhaler at home, uses this as needed, recently prescribed 1 month ago for viral infection where he completed his prednisone taper and doxycycline 1 week DVT ppx: teds, scds Lines: 2 PIV GI/FEN: Allow regular diet CODE: DNR/DNI - discussed care and goals with patient and family at bedside. Dispo: pending anticipate d/c home with hospice after rad tx eval plan of care discussed with patient and in detail and at length all questions answered they are understanding, agreeable, comfortable with the plan of care Admission and Anticipated Discharge Date Admission Date: March 05, 2023 Subjective ff up for hypercalcemia, etc seen sitting up in bed, comfortable family at bedside states his pain is more under control today still has cough, occasional hemoptysis has intermittent dyspnea no other new symptoms Review of Systems Review of Systems: all noted and negative except for above Physical Exam Physical Exam: General- oriented x 3, not in distress, speaks in sentences with no effort or accessory muscle use Eyes- anicteric Neck- no JVD Lungs- mild crackles left base Heart- normal rate, regular rhythm; no murmurs Abdomen- normal bowel sounds, nondistended, soft, nontender Extremities- no pretibial edema, no calf tenderness Neuro- alert, oriented x 3; no gross focal neurologic deficits Skin- warm & dry Results & Data Results & Data Vital Signs (Past 12 Hours) Vital Signs Temp Pulse Pulse Resp BP Pulse Ox O2 Del Method 03/08/23 16:00 36.3 C L 102 H 16 134/49 L 93 Room Air 03/08/23 15:50 91 H 03/08/23 14:09 82 18 96 Room Air 03/08/23 11:46 36.4 C L 76 18 138/85 95 Nasal Cannula 03/08/23 07:52 36.5 C 78 18 133/71 93 Room Air 03/08/23 07:41 Nasal Cannula 03/08/23 06:57 80 O2 Flow Rate 03/08/23 16:00 03/08/23 15:50 03/08/23 14:09 03/08/23 11:46 2 03/08/23 07:52 03/08/23 07:41 2 03/08/23 06:57 all noted and reviewed including below
[2023-03-09] MEDS ORDERED: MELATONIN 3 MG TAB PO PRN (00:01)
[2023-03-09] MEDS: CHECK fentaNYL PATCH PLACEMENT SCH ×3 (00:05→16:48)
[2023-03-09] MEDS: oxyCODONE HCL IR 5 MG TAB (IMMEDIATE RELEASE) PO PRN ×4 (05:23→22:38)
[2023-03-09 07:40] LABS: Basophils # (auto) 0.04 K/uL (0.00-0.20); Basophils % (auto) 0.2 %; Eosinophils # (auto) 0.12 K/uL (0.00-0.50); Eosinophils % (auto) 0.7 %; Hematocrit (blood only) 35.8 % (42.0-52.0); Hemoglobin 11.3 g/dl (14.0-18.0); Immature Granulocytes % (auto) 0.5 %; Lymphocytes # (auto) 2.97 K/uL (1.20-3.40); Lymphocytes % (auto) 16.3 %; Mean Corpuscular Hemoglobin 27.5 pg (25.0-34.0); Mean Corpuscular Hgb Conc 31.6 g/dL (32.0-36.0); Mean Corpuscular Volume 87.1 fL (80.0-100.0); Monocytes # (auto) 1.26 K/uL (0.11-0.59); Monocytes % (auto) 6.9 %; Neutrophils # (auto) 13.73 K/uL (1.40-6.50); Neutrophils % (auto) 75.4 %; Platelet Count 324 K/uL (130-400); RDW Coefficient of Variation 14.1 % (11.5-14.5); Red Blood Count 4.11 M/uL (4.70-6.10); White Blood Count 18.22 K/ul (4.8-10.8)
[2023-03-09 08:06] LABS: Albumin Globulin Ratio 1.2 (0.9-2); Albumin Level 3.6 gm/dl (3.4-5.0); BUN Creatinine Ratio 18.4 (10-20); Bilirubin,Total 0.8 mg/dl (0.2-1.0); Calcium 12.2 mg/dl (8.6-10.3); Creatinine Clr Calc Pharmacy 52.5 ml/min; Est GFR (African American) 84.9 ml/min; Est GFR (Non-African American) 73.3 ml/min; Globulin 2.9 gm/dl (2.5-4.0); Magnesium 1.7 mg/dl (1.7-2.4); Phosphorus 2.7 mg/dl (2.5-4.9); Potassium 4.1 mmol/L (3.5-5.1); Total Protein 6.5 gm/dl (6.0-8.3)
[2023-03-09] MEDS: ASCORBIC ACID 500 MG TAB PO SCH (08:42)
[2023-03-09] MEDS: CYANOCOBALAMIN (B-12) 500 MCG TABLET PO SCH (08:42)
[2023-03-09] MEDS: ASPIRIN 81 MG ECTAB PO SCH (08:42)
[2023-03-09] MEDS: FUROSEMIDE INJ 20 MG/2 ML VIAL IV SCH ×2 (08:43→19:39)
[2023-03-09] MEDS: DOCUSATE SODIUM/SENNA 50/8.6MG TAB PO SCH ×2 (08:43→19:39)
[2023-03-09] MEDS: MULTIVITAMIN TAB PO SCH (08:43)
[2023-03-09] MEDS: POTASSIUM CHLORIDE 40 MEQ in SODIUM CHLORIDE 0.9% 1,000 ML IV SCH ×2 (08:45→22:17)
[2023-03-09] MEDS: POLYETHYLENE (MIRALAX) 17 GM PACK PO SCH (08:45)
[2023-03-09] MEDS: INSULIN ASPART PER UNIT CHARGE SC SCH ×4 (09:17→21:58)
[2023-03-09] MEDS: HYDROmorphone INJ 0.5 MG/0.5 ML SYR IV PRN ×3 (10:46→21:49)
--- NOTE | 2023-03-09 11:56 | Nephrology Progress Note ---
Date of Service March 09, 2023 Assessment & Plan (1) Hypercalcemia: Plan: Hypercalcemia with the presenting calcium of 13.8 in the setting of metastatic cancer. Patient has refused all treatment for cancer. It appears that the cancer is quite advanced and is at the palliative stage at this time. He already received 1 dose of Zometa on 03/05. He is currently getting IV fluid but had massive edema so lasix was added w/improvement in both volume status and calcium level initially; today calcium worsening again. -calcium likely to worsen d/t untreated malignancy -continue ns at 80 ml/hr adn lasix 20 mg IV twice daily for now I have ordered a chest x-ray and if no worsening, recommend increasing normal saline rate to 125 mL hourly -consider denosumab 120 mg as outpatient versus or in combination with standing bisphosphonate -daily bmp for now Given his very very poor oral intake and nutrition it is nearly impossible to manage all his electrolyte. However while he is in the hospital will work at least to improve them. Care coordinated with Dr. Armstrong (2) Hypokalemia: Plan: Most recent potassium is improved on K rich fluids -cont 40 mEq/L K in NS Admission and Anticipated Discharge Date Admission Date: March 05, 2023 Subjective No interval clinical events. Calcium is trending back up. Denies shortness of breath, uncontrolled pain in joints, muscles, abdomen, chest. Endorses baseline challenges understanding clinical situation. Complains of polyuria Review of Systems 2 Review of Systems: All systems reviewed & are unremarkable except as noted in Subjective Physical Exam 2 Constitutional: well developed, + thin, + frail appearing and cooperative; no acute distress Eyes: EOM intact bilaterally ENMT: Ears: no external ear abnormality Nose: no external nose abnormality Mouth: + dry oral mucous membranes Neck: no nuchal rigidity Respiratory: normal respiratory effort (but slightly dyspneic w/ speech) A uscultation: + diminished lung sounds Cardiovascular: RRR, no murmur, no edema Gastrointestinal (Abdomen): Inspection/Auscultation: normal bowel sounds P ercussion/Palpation: abdomen soft; abdomen nontender Musculoskeletal: Extremities: strength 5/5 throughout Skin: no rashes, warm and dry Results & Data Vital Signs (Past 12 Hours) Vital Signs Temp Pulse Pulse Resp BP BP Pulse Ox 03/09/23 09:31 93 H 03/09/23 07:51 03/09/23 07:47 36.7 C 85 16 124/72 98 03/09/23 03:16 36.8 C 85 18 116/75 97 O2 Del Method O2 Flow Rate 03/09/23 09:31 03/09/23 07:51 Nasal Cannula 2 03/09/23 07:47 Room Air 03/09/23 03:16 Room Air Laboratory Results 03/09/23 07:11 03/09/23 07:11 Calcium 12.2 Diagnostic Findings Admission chest x-ray reviewed
--- NOTE | 2023-03-09 14:52 | Hospitalist Progress Note ---
Date of Service March 09, 2023 Assessment & Plan (1) Metastatic squamous cell carcinoma to lung: Plan: (1) Malignant neoplasm of unspecified part of right bronchus or lung: (2) Back pain: (3) Chronic lymphoid leukemia: (4) History of back surgery: (5) Tobacco use: (6) COPD with emphysema: (7) Anemia: Plan: 68yo M with PMhx of tobacco use, COPD, DM II, HTN, elevated PSA, hx of CLL in 2016, microcytic anemia, locally advanced Squamous cell carcinoma diagnosed in July 2022 BACK PAIN LIKELY FROM T6, L2 COMPRESSION FRACTURES, LIKELY FROM METASTASIS (Pathological fractures in neoplastic disease to thoracic and lumbar vertebrae) SQUAMOUS CELL LUNG CA - Fentanyl patch PRN Dilaudid, Oxycodone Ortho Spine consulted Radiation Therapy evaluation - likely representing Metastatic Lung CA patient declining aggressive measures including chemotherapy, surgery Palliative Care consulted Oncology also on board recommend evaluation for radiation therapy for pain control prior to discharge patient and family requesting home with hospice service - pain more manageable today continue above regimen hold ASA due to hemoptysis - for possible Rad Tx tomorrow HYPERCALCEMIA - Nephro consulted IV NSS and Lasix IV ordered - Ca elevated again at 12 if CXR ok, will increase IV fluids and decrease lasix LOW PHOSPHORUS, K - Severe protein-calorie malnutrition - replaced - from poor oral intake Boost ordered Nutrition consult RLL COLLAPSE LIKELY FROM MUCUS PLUG, LUNG CANCER - Possible aspiration pneumonia component - on room air - Pulm consulted, no procedure planned - continue Incentive Spirometry PRN Albuterol History of CLL Microcytic anemia - stable Constipation -Follow, hold iron for now - Bowel regimen DM II - ISS with Accu-Cheks ACHS, check A1C with am lab -Holding metformin -Patient does not check glucose at home Chronic tobacco use COPD -Patient is still smoking 3 cigarettes daily, cessation encouraged -Patient denies need for nicotine patch -Has Proventil inhaler at home, uses this as needed, recently prescribed 1 month ago for viral infection where he completed his prednisone taper and doxycycline 1 week DVT ppx: teds, scds Lines: 2 PIV GI/FEN: Allow regular diet CODE: DNR/DNI - discussed care and goals with patient and family at bedside. Dispo: pending anticipate d/c home with hospice after rad tx eval plan of care discussed with patient and in detail and at length all questions answered they are understanding, agreeable, comfortable with the plan of care Admission and Anticipated Discharge Date Admission Date: March 05, 2023 Subjective ff up for hypercalcemia, etc seen sitting up in bed, not in distress pain well controlled less cough, hemoptysis no other new symptoms Review of Systems Review of Systems: all noted and negative except for above Physical Exam Physical Exam: General- oriented x 3, not in distress, speaks in sentences with no effort or accessory muscle use Eyes- anicteric Neck- no JVD Lungs- mild rhonchi L base Heart- normal rate, regular rhythm; no murmurs Abdomen- normal bowel sounds, nondistended, soft, nontender Extremities- no pretibial edema, no calf tenderness Neuro- alert, oriented x 3; no gross focal neurologic deficits Skin- warm & dry Results & Data Results & Data Vital Signs (Past 12 Hours) Vital Signs Temp Pulse Pulse Resp BP BP Pulse Ox 03/09/23 12:03 36.6 C 94 H 16 128/79 94 03/09/23 09:31 93 H 03/09/23 07:51 03/09/23 07:47 36.7 C 85 16 124/72 98 03/09/23 03:16 36.8 C 85 18 116/75 97 O2 Del Method O2 Flow Rate 03/09/23 12:03 Nasal Cannula 2 03/09/23 09:31 03/09/23 07:51 Nasal Cannula 2 03/09/23 07:47 Room Air 03/09/23 03:16 Room Air all noted and reviewed including below
[2023-03-09] MEDS: fentaNYL 100 MCG/HR TDSY TD SCH (14:53)
[2023-03-09] MEDS: CALCITONIN SALMON 400 UNITS/2 ML SQ SCH (15:33)
--- NOTE | 2023-03-09 17:03 | XRay Report ---
XR chest 1V portable CLINICAL HISTORY: Recheck volume status TECHNIQUE: Single frontal radiograph of the chest was obtained. Comparison: Comparison is made to chest radiograph 03/05/2023 FINDINGS: No lines and tubes are seen. Bulky mediastinal masses are again noted. Previously noted right lower l mg collapse has resolved. No significant pulmonary edema. Possible trace right pleural effusion. IMPRESSION: 1. No evidence of volume overload. 2. Interval resolution of previously noted right lower lobe atelectasis. 3. Mediastinal masses again seen. ACT 112: Negative or not required by law. Electronically signed by: Howard Hernández M.D. 03/09/2023 5:01 PM
--- NOTE | 2023-03-09 22:18 | Communication Note ---
Date of Service: March 09, 2023 Requested by AM provider to look up today's chest x-ray report to guide current IVF and Lasix dosing as per Nephrology instructions. Chest x-ray: 1. No evidence of volume overload. 2. Interval resolution of previously noted right lower lobe atelectasis. 3. Mediastinal masses again seen. [employer] recommended increase nss to 125cc/hr and decrease lasix to daily if no overload as per him provider.
[2023-03-10] MEDS: CHECK fentaNYL PATCH PLACEMENT SCH ×3 (01:30→18:04)
[2023-03-10] MEDS: HYDROmorphone INJ 0.5 MG/0.5 ML SYR IV PRN ×3 (01:30→20:30)
[2023-03-10] MEDS: CALCITONIN SALMON 400 UNITS/2 ML SQ SCH ×2 (03:34→16:55)
[2023-03-10] MEDS: oxyCODONE HCL IR 5 MG TAB (IMMEDIATE RELEASE) PO PRN ×5 (03:36→20:30)
[2023-03-10 06:40] LABS: Basophils # (auto) 0.07 K/uL (0.00-0.20); Basophils % (auto) 0.3 %; Eosinophils # (auto) 0.21 K/uL (0.00-0.50); Hematocrit (blood only) 38.3 % (42.0-52.0); Hemoglobin 12.1 g/dl (14.0-18.0); Immature Granulocytes # (auto) 0.15 K/uL (0.01-0.20); Immature Granulocytes % (auto) 0.7 %; Lymphocytes # (auto) 4.79 K/uL (1.20-3.40); Lymphocytes % (auto) 22.3 %; Mean Corpuscular Hemoglobin 27.4 pg (25.0-34.0); Mean Corpuscular Hgb Conc 31.6 g/dL (32.0-36.0); Mean Corpuscular Volume 86.7 fL (80.0-100.0); Mean Platelet Volume 10.4 fL (9.4-12.4); Monocytes % (auto) 6.5 %; Neutrophils # (auto) 14.83 K/uL (1.40-6.50); Neutrophils % (auto) 69.2 %; Platelet Count 364 K/uL (130-400); RDW Coefficient of Variation 13.8 % (11.5-14.5); RDW Standard Deviation 43.9 fL (36.4-46.3); Red Blood Count 4.42 M/uL (4.70-6.10); White Blood Count 21.45 K/ul (4.8-10.8)
[2023-03-10 06:59] LABS: Albumin Globulin Ratio 1.3 (0.9-2); Albumin Level 3.9 gm/dl (3.4-5.0); BUN Creatinine Ratio 19.6 (10-20); Bilirubin,Total 1.3 mg/dl (0.2-1.0); Calcium 12.4 mg/dl (8.6-10.3); Creatinine Clr Calc Pharmacy 50.4 ml/min; Est GFR (African American) 81.1 ml/min; Globulin 3.1 gm/dl (2.5-4.0); Magnesium 1.7 mg/dl (1.7-2.4); Phosphorus 2.4 mg/dl (2.5-4.9); Potassium 3.7 mmol/L (3.5-5.1)
--- NOTE | 2023-03-10 08:24 | Radiation OncologyConsultation ---
Date of Consultation March 10, 2023 Assessment & Plan (1) Pain from bone metastases: This is a 68-year-old gentleman with a known history of metastatic squamous cell carcinoma of the lung. He was diagnosed 07/24/2022. Squamous cell carcinoma of the right upper lobe. He was seen by medical oncology. Recommendation for chemotherapy which he declined. He was seen 09/09/2022 in radiation oncology by Dr. Centeno. Patient declined radiation therapy. Most recently he was admitted for leg edema and back pain. He was found to have metastatic lesions in the thoracic as well as lumbar spine. He is most painful in the area of the T6 pathologic compression fracture. He has been seen by palliative care. Today he continues to have a pain level of 9. I reviewed with him palliative radiation that could be given in a single fraction. He seemed somewhat interested in this treatment. He declined to make any final decisions until he spoke with his who will be coming in later this morning. We will plan to review this with her. If he is agreeable to the 1 fraction of treatment I did reviewed with him the process of therapy which will entail a CT simulation first. Treatment planning will need to be completed and then he will return for the 1 fraction of therapy. I returned to the patient's room. His was present. We discussed the process of treatment. He will need to have CT simulation. Plans will be completed and he will receive 1 fraction of radiation therapy. After discussing this with his he did want to proceed with the one treatment. He was then brought to our office. He underwent a CT simulation. Consent to treatment and potential side effects reviewed and obtained by Dr. Centeno. Plan ATTENDING ADDENDUM: Assessment: Mr. Chaparro is a 68-year-old gentleman with metastatic lung cancer. The patient has metastatic disease to the T6 vertebral body. He does have significant pain from this. The patient would like to be considered for single fraction palliative radiation therapy and then transition to hospice/comfort care. Recommendation: Palliative external beam radiation therapy. Single fraction. 8 Gy. Plan: 1. CT simulation for treatment planning for radiation therapy. 2. Plan for radiation therapy tomorrow. 3. Continue pain management as per primary medical team. 4. Patient will transition to hospice/comfort care following completion of radiation therapy. 5. Patient and family encouraged to call us with any further questions or concerns. Rationale/Explanation of Treatment: I have explained the indications, alternatives, benefits, risks and side effects of radiation therapy. I have explained the most common side effects which include but are not limited to skin erythema, skin break down, pulmonary fibrosis, adhesion development, radiation pneumonitis, spinal cord damage, brachial plexus damage, rib fracture, heart failure and heart disease, esophagitis, development of fistula, fatigue and development of secondary malignancy. I have explained the CT simulation process and treatment planning. I explained what to expect before, during and after treatment on a regular basis. History of Present Illness Reason for Consultation: Radiation oncology consultation for palliation of pain. Requesting Physician: Sylvain Armstrong MD Attending Physician: Sylvain Armstrong MD History of Present Illness 30 pound weight loss initiates diagnostic work-up. Smoker 1-1/2 packs/day. Medical oncology was following him for anemia. 03/07/2022. CT abd/pelvis. 1. Mild left external iliac lymphadenopathy. [up to 2.2 cm] 2. A 9 mm lucent lesion within the right iliac wing. This is indeterminate. A small metastatic focus or multiple myeloma would be the diagnosis of exclusion 3. Subacute mild to moderate super endplate compression fracture at L2. No associated retropulsion. 4. Mild bile duct dilatation. Recommend correlation with LFTs. 5. Mild bladder wall thickening. This may represent a cystitis. 03/07/2022 CT chest 1. Pathologic [4 x 4 cm] internal mammary chain and paratracheal lymphadenopathy is new from the 2009 comparison. Oncologic workup is needed. 2. There are two irregular and spiculated nodules within the right lung apex which are also new from the prior study. Follow-up guidelines provided below. 3. Pulmonary emphysema. 03/21/2022. PET/CT. IMPRESSION: 1. Marked FDG avidity in the right lower paratracheal and right internal mammary node. Findings are concerning for lymphomatous disease. Left axillary node contains only low level uptake. 2. Redemonstration right upper lobe pulmonary nodules without evidence of significant uptake. It was recommended the patient have a biopsy and patient declined. He agreed to a recheck CT in June. 06/14/2022. Chest CT. IMPRESSION: 1. Interval progression of the right paratracheal and internal mammary lymphadenopathy as described above. 2. No significant change in the irregular right upper lobe pulmonary nodules with the largest measuring 11 mm. Continued follow-up recommended. 3. Mild emphysema. 06/14/2022. CT of abdomen pelvis. IMPRESSION: 1. There is no evidence of progressive metastatic disease in the abdomen or pelvis. 2. Osteolytic bony lesions in the iliac wings are similar to previous. These were not PET avid on 03/21/2022. 3. Mildly enlarged left external iliac chain lymph nodes are similar to previous. These were not PET avid on 03/21/2022. 4. Moderate constipation. 5. One of the intertrochanteric screws in the left proximal femur closely approxim ates the cortex of the femoral head. 6. Postsurgical change and compression deformities in the lumbar spine are similar to previous. 06/19/2022. Medical oncology follow-up (Dr. Tyler). Patient agreed to bronchoscopy with EBUS. 07/16/2022. Pulmonary consultation (Dr. Posey). Recommendation for bronchoscopy with EBUS. 07/24/2022. Bronchoscopy with EBUS. 2R lymph node metastatic squamous cell c arcinoma. Bronchial lavage right upper lobe showed squamous cell carcinoma. Negative for PD-L1 expression. 07/31/2022. Medical oncology follow-up. Recommendation for brain MRI and bone scan. 08/13/2022. Whole-body bone scan. IMPRESSION: 1. There is no abnormal osseous uptake typical for metastatic bone disease. 2. Intense focal activity within the L2 vertebral body is consistent with a known compression fracture. 3. There is no abnormal tracer identified in the iliac wings at the sites of lucent lesions seen on CT. 4. Low level activity throughout the left femoral shaft is likely related to chronic posttraumatic and postsurgical change. 08/16/2022. Medical oncology follow-up. Stage at diagnosis: cT1/3 (?separate nodules in same lobe) cN2 cM0 / IIIA/B (pending confirmatory MR brain). Patient canceled brain MRI. This was rescheduled for September 09, 2022. May need updated body CT. If no new lesions plan for Taxol carboplatin with radiation therapy. Possible durvalumab afterward. 09/09/2022. MRI of the brain. Pending. 09/09/2022. Radiation oncology consultation (Dr. Centeno). Recommendation for restaging. Patient declined to have his CT simulation today. 09/09/2022. Palliative care consultation (Dr. Eldridge). 09/10/2022. Telephone follow-up with medical oncology. Patient declined systemic chemotherapy. 03/05/2023. Emergency room evaluation for back pain leg edema. He was found to have hypokalemia and hypercalcemia. He was given IV fluids. Recheck CT scans were obtained of the thoracic and lumbar spine. 03/05/2023. CT of the lumbar spine. 1. Progressive loss of height along the right side of the moderate to severe compression deformity at L2. This favors a subacute to chronic compression fracture. No definite acute fractures within the lumbar spine. 2. Additional chronic compression deformities and postoperative changes within the lumbar spine as described above. 03/05/2023. CT of the thoracic spine. 1. Interval development of a moderate to severe inferior endplate compression fracture at T6 consistent with an acute to subacute fracture. 2. Multiple additional chronic mild endplate compression deformities seen throughout the majority of the thoracic spine remain unchanged. 3. Increase in size in the right mediastinal/paratracheal mass. Multiple scattered pulmonary nodules have also progressed consistent with metastatic disease. 4. There is a small right pleural effusion. 5. Partial mucoid opacification the right lower lobe bronchi with patchy airspace opacities at the right lung base. This may represent an aspiration pneumonitis. 03/05/2023. Medical oncology consultation (Dr. Tyler). Possible radiation therapy to T6 for palliation of pain. We also discussed evaluation by Dr. Stahl for vertebroplasty. Recommendation for palliative care consultation. He recommended pulmonary consultation. Recommended consideration of MRI of the brain. 03/06/2023. Nephrology consultation (Dr. Chan). Continue IV fluid and Lasix for the hypercalcemia. 03/06/2023. Palliative care consultation (Dr. Harrington). Discussion with palliative care and hospice. Patient is unsure of what he wanted to do. [place] he was not ready for hospice. Pain was his biggest issue. 03/07/2023. Medical oncology follow-up. Patient continues to decline chemotherapy and any case. Patient therapy at a hypofractionated course. 03/07/2023. Orthopedic consultation (Dr. Stahl). Patient declines any surgical intervention. 03/08/2023. Nephrology follow-up. Patient was refusing all treatment for cancer. 03/09/2023. Nephrology follow-up. Patient is for oral intake. Recommend to manage electrolytes. 03/10/2023. Radiation oncology consultation (Dr. Centeno/Kenneth RASMUSSEN). Patient continues have significant pain in the area of the thoracic spine. He uses a pain level of 9. He has a burning discomfort of the central chest. He had significant edema when admitted. This has improved with the electrolyte management. He had been previously seen in September and declined treatment. He continues to decline chemotherapy. We discussed today a single fraction of radiation therapy to be T6. To help with palliation of pain. He did seem somewhat interested this morning. He stated that he would have to speak with his for final decision. We will plan to review this with her when she comes in this morning. Allergies Allergy/AdvReac Type Severity Reaction Status Date / Time morphine Allergy Intermediate Hives, Verified 03/05/23 17:09 Shakes Home Medications Medication Instructions Recorded Confirmed Type alendronate 70 mg tablet (Fosamax) 70 mg PO WK 03/26/18 03/05/23 History aspirin 81 mg tablet,delayed 81 mg PO QAM 03/26/18 03/05/23 History release metformin 1,000 mg tablet 1,000 mg PO QAM 03/26/18 03/05/23 History calcium carbonate 500 mg-vitamin 1 tab PO QAM 05/14/19 03/05/23 History D3 5 mcg (200 unit) tablet (Calcium 500 + D) cyanocobalamin (vitamin B-12) 1,000 mcg PO QAM 05/14/19 03/05/23 History 1,000 mcg tablet (Vitamin B-12) lisinopril 40 mg tablet (Zestril) 20 mg PO QAM 05/14/19 03/05/23 History docusate sodium 100 mg capsule 100 mg PO DAILY PRN Constipation 06/08/19 03/05/23 History (Colace) fentanyl 75 mcg/hr transdermal 1 patch transdermal Q72H 07/18/22 03/05/23 History patch ferrous sulfate 325 mg (65 mg 325 mg PO QAM 07/18/22 03/05/23 History iron) tablet (Iron (ferrous sulfate)) acetaminophen 325 mg tablet 650 mg PO Q8 PRN Pain 09/09/22 03/05/23 History multivitamin 1 tab PO QAM 09/09/22 03/05/23 History oxycodone 10 mg tablet 10 mg PO Q4H PRN pain #60 tabs 10/15/22 03/05/23 Rx ascorbic acid (vitamin C) 1,000 mg 1 g PO QAM 03/05/23 03/05/23 History tablet (Vitamin C) Patient History Medical History (Updated 03/10/23 @ 08:40 by Sally Cooper PA-C) Atelectasis Hx MRSA infection in elbow wound several yrs ago > resolved Osteoarthritis Osteoporosis H. 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 History of right inguinal hernia repair 06/08/19 LMA#5. History of open reduction and internal fixation (ORIF) procedure x3--LEFT LEG FEMUR HAS DEVYN 09/25/18 LMA#5. History of back surgery HAD FX AND FUSION OF LUMBAR Family History Mother Family history of diabetes mellitus Other No family history of adverse response to anesthesia Social History Smoking Status: Current every day smoker Tobacco Type: Cigarettes Cigarettes Per Day: <1 ppd; Second Hand Exposure: No; Do You Dip or Chew Tobacco: Yes; Hx Alcohol Use: Yes Alcohol type: beer Hx Substance Use: No Preferred Language: Kiswahili Communication Ability: Effective Visual Impairment: No Limitations Hearing Ability: Hard of Hearing Network Administrator Required: No Beliefs That Will Affect Care: None marital status: Current Living Situation: Spouse current occupational status: retired Other Information That Helps Us Care for You: No Feels Safe at Home: Yes Safety Concerns: Feels Safe At This Time during the past year weight has: decreased > 10 lbs Assistive Devices: Cane Radiation History DIAGNOSIS: Metastatic lung cancer. TREATMENT: No radiation therapy history. Review of Systems Review of Systems: 13 point review of systems negative othe r than what is mentioned in the history of present illness. Physical Exam Constitutional: WD/WN, vitals as above + thin and + frail appearing Eyes: PERRL, conjunctivae normal, anicteric sclerae ENMT: Ears: + hearing impairment Neck: trachea midline, no thyromegaly Respiratory: no respiratory distress Auscultation: + diminished lung sounds and + bronchovesicular breath sounds; no crackles and no wheezes Cardiovascular: RRR, no murmur, no edema Gastrointestinal (Abdomen): normal bowel sounds, soft, nontender, no hepatosplenomegaly Skin: no rashes, warm and dry Psychiatric: A+Ox3, euthymic affect Lymphatic: no cervical or axillary lymphadenopathy Results (Rad Onc) Imaging Studies: were reviewed and pertinent findings noted in HPI Time Spent Midlevel I spent [15] minutes in preparation for this follow up evaluation including reviewing all the clinical records, reviewing laboratory studies, pathology reports and imaging results. I spent [30] minutes with direct face to face interaction with the patient and/or family including performing a physical exam and answering all questions. I spent [15] minutes documenting this patient's visit. Attending I spent 10 minutes in preparation for this consultation including reviewing all the clinical records, reviewing laboratory studies, pathology reports and imaging results. I spent 10 minutes with direct face to face interaction with the patient and/or family including performing a physical exam and answering all questions. I spent 10 minutes documenting this patient's visit. PG Care Time/CCT Total # of Minutes Spent Total Time Spent with Patient: Total time spent is greater than 50% in coordination of care (as documented) at patient's floor/unit and/or counseling patient: Coding Level of Care Code 11423 IN/OBS CONSULT LVL 4,60M Diagnoses Pain from bone metastases G89.3; C79.51
[2023-03-10] MEDS: INSULIN ASPART PER UNIT CHARGE SC SCH ×4 (09:58→22:18)
[2023-03-10] MEDS: ASCORBIC ACID 500 MG TAB PO SCH (10:00)
[2023-03-10] MEDS: CYANOCOBALAMIN (B-12) 500 MCG TABLET PO SCH (10:00)
[2023-03-10] MEDS: DOCUSATE SODIUM/SENNA 50/8.6MG TAB PO SCH ×2 (10:00→20:34)
--- NOTE | 2023-03-10 11:52 | Hospitalist Progress Note ---
Date of Service March 10, 2023 Assessment & Plan (1) Metastatic squamous cell carcinoma to lung: Plan: (1) Malignant neoplasm of unspecified part of right bronchus or lung: (2) Back pain: (3) Chronic lymphoid leukemia: (4) History of back surgery: (5) Tobacco use: (6) COPD with emphysema: (7) Anemia: Plan: 68yo M with PMhx of tobacco use, COPD, DM II, HTN, elevated PSA, hx of CLL in 2016, microcytic anemia, locally advanced Squamous cell carcinoma diagnosed in July 2022 BACK PAIN LIKELY FROM T6, L2 COMPRESSION FRACTURES, LIKELY FROM METASTASIS (Pathological fractures in neoplastic disease to thoracic and lumbar vertebrae) SQUAMOUS CELL LUNG CA - Fentanyl patch PRN Dilaudid, Oxycodone Ortho Spine consulted Radiation Therapy evaluation: seen patient this morning, will be discussing with on how to proceed - likely representing Metastatic Lung CA patient declining aggressive measures including chemotherapy, surgery Palliative Care consulted Oncology also on board recommend evaluation for radiation therapy for pain control prior to discharge patient and family requesting home with hospice service - continue above regimen hold ASA due to hemoptysis - for possible Rad Tx tomorrow HYPERCALCEMIA - Nephro consulted IV NSS and Lasix IV ordered - Ca elevated again at 12 NSS increased, Lasix decreased LOW PHOSPHORUS, K - Severe protein-calorie malnutrition - replaced - from poor oral intake Boost ordered Nutrition consult RLL COLLAPSE LIKELY FROM MUCUS PLUG, LUNG CANCER - Possible aspiration pneumonia component - on room air - Pulm consulted, no procedure planned - continue Incentive Spirometry PRN Albuterol History of CLL Microcytic anemia - stable Constipation -Follow, hold iron for now - Bowel regimen DM II - ISS with Accu-Cheks ACHS, check A1C with am lab -Holding metformin -Patient does not check glucose at home Chronic tobacco use COPD -Patient is still smoking 3 cigarettes daily, cessation encouraged -Patient denies need for nicotine patch -Has Proventil inhaler at home, uses this as needed, recently prescribed 1 month ago for viral infection where he completed his prednisone taper and doxycycline 1 week DVT ppx: teds, scds Lines: 2 PIV GI/FEN: Allow regular diet CODE: DNR/DNI - discussed care and goals with patient and family at bedside. Dispo: pending anticipate d/c home with hospice after rad tx eval Admission and Anticipated Discharge Date Admission Date: March 05, 2023 Subjective ff up for hypercalcemia, etc seen resting in bed, comfortable still having some back pain no hemoptysis, dyspnea, chest pain no other symptoms family at bedside Review of Systems Review of Systems: all noted and negative except for above Physical Exam Physical Exam: General- oriented x 3, not in distress, speaks in sentences with no effort or accessory muscle use Eyes- anicteric Neck- no JVD Lungs- clear breath sounds bilaterally, no rales/wheezes Heart- normal rate, regular rhythm; no murmurs Abdomen- normal bowel sounds, nondistended, soft, nontender Extremities- no pretibial edema, no calf tenderness Neuro- alert, oriented x 3; no gross focal neurologic deficits Skin- warm & dry Results & Data Results & Data Vital Signs (Past 12 Hours) Vital Signs Temp Pulse Pulse Resp BP Pulse Ox O2 Del Method 03/10/23 11:38 36.9 C 60 18 113/64 96 Nasal Cannula 03/10/23 07:56 36.7 C 75 18 114/78 94 Room Air 03/10/23 07:44 105 H 03/10/23 04:16 36.6 C 86 20 124/68 95 Room Air 03/10/23 01:16 110 H 03/10/23 01:06 Nasal Cannula O2 Flow Rate 03/10/23 11:38 2 03/10/23 07:56 03/10/23 07:44 03/10/23 04:16 03/10/23 01:16 03/10/23 01:06 2 all noted and reviewed including below
[2023-03-10] MEDS: MULTIVITAMIN TAB PO SCH (12:33)
[2023-03-10] MEDS: FUROSEMIDE INJ 20 MG/2 ML VIAL IV SCH (12:37)
[2023-03-10] MEDS: POLYETHYLENE (MIRALAX) 17 GM PACK PO SCH (12:43)
[2023-03-10] MEDS ORDERED: FIRST - Mouthwash BLM 119 ML PO PRN (13:02)
[2023-03-10] MEDS: POTASSIUM CHLORIDE 40 MEQ in SODIUM CHLORIDE 0.9% 1,000 ML IV SCH (14:53)
[2023-03-11] MEDS: HYDROmorphone INJ 0.5 MG/0.5 ML SYR IV PRN ×4 (00:43→13:46)
[2023-03-11] MEDS: CHECK fentaNYL PATCH PLACEMENT SCH ×3 (00:43→15:28)
[2023-03-11] MEDS: oxyCODONE HCL IR 5 MG TAB (IMMEDIATE RELEASE) PO PRN ×5 (00:44→21:31)
[2023-03-11] MEDS: POTASSIUM CHLORIDE 40 MEQ in SODIUM CHLORIDE 0.9% 1,000 ML IV SCH ×2 (00:44→09:08)
[2023-03-11] MEDS: CALCITONIN SALMON 400 UNITS/2 ML SQ SCH (03:26)
[2023-03-11 07:57] LABS: Basophils # (auto) 0.08 K/uL (0.00-0.20); Basophils % (auto) 0.5 %; Eosinophils # (auto) 0.18 K/uL (0.00-0.50); Eosinophils % (auto) 1.1 %; Hematocrit (blood only) 33.7 % (42.0-52.0); Hemoglobin 10.9 g/dl (14.0-18.0); Immature Granulocytes # (auto) 0.08 K/uL (0.01-0.20); Immature Granulocytes % (auto) 0.5 %; Lymphocytes # (auto) 3.41 K/uL (1.20-3.40); Lymphocytes % (auto) 20.5 %; Mean Corpuscular Hemoglobin 27.5 pg (25.0-34.0); Mean Corpuscular Hgb Conc 32.3 g/dL (32.0-36.0); Mean Corpuscular Volume 85.1 fL (80.0-100.0); Mean Platelet Volume 10.7 fL (9.4-12.4); Monocytes # (auto) 1.48 K/uL (0.11-0.59); Monocytes % (auto) 8.9 %; Neutrophils # (auto) 11.37 K/uL (1.40-6.50); Neutrophils % (auto) 68.5 %; Platelet Count 338 K/uL (130-400); RDW Standard Deviation 43.2 fL (36.4-46.3); Red Blood Count 3.96 M/uL (4.70-6.10)
[2023-03-11 08:31] LABS: Magnesium 1.7 mg/dl (1.7-2.4); Phosphorus 2.4 mg/dl (2.5-4.9)
[2023-03-11] MEDS: FUROSEMIDE INJ 20 MG/2 ML VIAL IV SCH (09:07)
[2023-03-11] MEDS: MULTIVITAMIN TAB PO SCH (09:07)
[2023-03-11] MEDS: DOCUSATE SODIUM/SENNA 50/8.6MG TAB PO SCH ×2 (09:08→21:33)
[2023-03-11] MEDS: ASCORBIC ACID 500 MG TAB PO SCH (09:08)
[2023-03-11] MEDS: POLYETHYLENE (MIRALAX) 17 GM PACK PO SCH (09:08)
[2023-03-11] MEDS: CYANOCOBALAMIN (B-12) 500 MCG TABLET PO SCH (09:08)
[2023-03-11] MEDS: INSULIN ASPART PER UNIT CHARGE SC SCH ×4 (09:35→21:34)
[2023-03-11 10:35] LABS: BUN Creatinine Ratio 22.2 (10-20); Calcium 12.5 mg/dl (8.6-10.3); Creatinine Clr Calc Pharmacy 53.2 ml/min; Est GFR (African American) 89.1 ml/min; Est GFR (Non-African American) 76.8 ml/min; Potassium 4.2 mmol/L (3.5-5.1)
--- NOTE | 2023-03-11 15:13 | Hospitalist Progress Note ---
Date of Service March 11, 2023 Assessment & Plan (1) Metastatic squamous cell carcinoma to lung: Plan: (1) Malignant neoplasm of unspecified part of right bronchus or lung: (2) Back pain: (3) Chronic lymphoid leukemia: (4) History of back surgery: (5) Tobacco use: (6) COPD with emphysema: (7) Anemia: Plan: 68yo M with PMhx of tobacco use, COPD, DM II, HTN, elevated PSA, hx of CLL in 2016, microcytic anemia, locally advanced Squamous cell carcinoma diagnosed in July 2022 BACK PAIN LIKELY FROM T6, L2 COMPRESSION FRACTURES, LIKELY FROM METASTASIS (Pathological fractures in neoplastic disease to thoracic and lumbar vertebrae) SQUAMOUS CELL LUNG CA - Fentanyl patch PRN Dilaudid, Oxycodone Ortho Spine consulted Radiation Therapy evaluation: Status post radiation treatment of the spine today - likely representing Metastatic Lung CA patient declining aggressive measures including chemotherapy, surgery Palliative Care consulted Oncology also on board recommend evaluation for radiation therapy for pain control prior to discharge patient and family requesting home with hospice service - continue above regimen hold ASA due to hemoptysis -Anticipate discharge to home with hospice services tomorrow HYPERCALCEMIA - Nephro consulted IV NSS and Lasix IV ordered - Ca elevated again at 12 NSS increased, Lasix decreased LOW PHOSPHORUS, K - Severe protein-calorie malnutrition - replaced - from poor oral intake Boost ordered Nutrition consult RLL COLLAPSE LIKELY FROM MUCUS PLUG, LUNG CANCER - Possible aspiration pneumonia component - on room air - Pulm consulted, no procedure planned - continue Incentive Spirometry PRN Albuterol History of CLL Microcytic anemia - stable Constipation -Follow, hold iron for now - Bowel regimen DM II - ISS with Accu-Cheks ACHS, check A1C with am lab -Holding metformin -Patient does not check glucose at home Chronic tobacco use COPD -Patient is still smoking 3 cigarettes daily, cessation encouraged -Patient denies need for nicotine patch -Has Proventil inhaler at home, uses this as needed, recently prescribed 1 month ago for viral infection where he completed his prednisone taper and doxycycline 1 week DVT ppx: teds, scds Lines: 2 PIV GI/FEN: Allow regular diet CODE: DNR/DNI - discussed care and goals with patient and family at bedside. Dispo: pending anticipate d/c home with hospice tomorrow Admission and Anticipated Discharge Date Admission Date: March 05, 2023 Subjective ff up for hypercalcemia, etc. Seen sitting up in bed, having breakfast Still having some back pain, as needed meds relieving the pain No shortness of breath, minimal cough, no hemoptysis No other new symptom Review of Systems Review of Systems: all noted and negative except for above Physical Exam Physical Exam: General- oriented x 3, not in distress, speaks in sentences with no effort or accessory muscle use Eyes- anicteric Neck- no JVD Lungs-mild rhonchi left base Heart- normal rate, regular rhythm; no murmurs Abdomen- normal bowel sounds, nondistended, soft, no tenderness Extremities- no pretibial edema, no calf tenderness Neuro- alert, oriented x 3; no gross focal neurologic deficits Skin- warm & dry Results & Data Results & Data Vital Signs (Past 12 Hours) Vital Signs Temp Pulse Pulse Resp BP BP Pulse Ox 03/11/23 14:26 36.4 C L 106 H 20 122/65 97 03/11/23 11:23 36.4 C L 95 H 16 121/80 94 03/11/23 10:26 95 H 03/11/23 10:09 03/11/23 08:07 36.9 C 93 H 16 109/68 93 03/11/23 04:19 37 C 96 H 16 116/74 97 O2 Del Method O2 Flow Rate 03/11/23 14:26 Room Air 03/11/23 11:23 Room Air 03/11/23 10:26 03/11/23 10:09 Nasal Cannula 2 03/11/23 08:07 Room Air 03/11/23 04:19 Room Air
--- NOTE | 2023-03-11 21:10 | Hospitalist Progress Note ---
Date of Service March 11, 2023 Assessment & Plan (1) Metastatic squamous cell carcinoma to lung: Plan: Patient and family are well versed in options and are choosing to go home on hospice which I think is the best choice for him. Hopefully the radiation will assist in pain management, biggest issue may be his hypercalcemia as discussed below (2) Hypercalcemia: Plan: Up-to-date indicates that zometa can be repeated after 7 days if hypercalcemia persist. Would consider that just prior to discharge. Unfortunately on hospice it would be difficult to coordinate either further bisphosphonates or denosumab. Plan Plans for discharge on hospice. Given the ongoing challenges with his calcium it may be worthwhile to repeat the Zometa just prior to discharge which will be 7 days after his initial dose. Thereafter family should be encouraged to continue with fluids at home and perhaps some Lasix if he is not excessively volume depleted. The family are very well aware of the challenging prognosis that he faces but overall home on hospice is by far his best choice Admission and Anticipated Discharge Date Admission Date: March 05, 2023 Subjective Received his radiation today, anticipate going home on hospice tomorrow Physical Exam Physical Exam: VSS Somewhat more pronounced ptosis but he is still alert and seems generally stable other than his ongoing pain Results & Data Results & Data Vital Signs (Past 12 Hours) Vital Signs Temp Pulse Pulse Resp BP Pulse Ox O2 Del Method 03/11/23 19:29 36.8 C 57 L 18 105/73 96 Room Air 03/11/23 15:53 103 H 03/11/23 14:26 36.4 C L 106 H 20 122/65 97 Room Air 03/11/23 11: 36.4 C L 95 H 16 121/80 94 Room Air 03/11/23 10:26 95 H 03/11/23 10:09 Nasal Cannula O2 Flow Rate 03/11/23 19:29 03/11/23 15:53 03/11/23 14:26 03/11/23 11:23 03/11/23 10:26 03/11/23 10:09 2 PG Care Time/CCT Total # of Minutes Spent Total Time Spent with Patient: Total time spent is greater than 50% in coordination of care (as documented) at patient's floor/unit and/or counseling patient: Coding Level of Care Code 96014 SUB INP/OBS CARE 05/29MIN Diagnoses Metastatic squamous cell carcinoma to lung C78.00 Hypercalcemia E83.52
[2023-03-12] MEDS: HYDROmorphone INJ 0.5 MG/0.5 ML SYR IV PRN (00:22)
[2023-03-12] MEDS: CHECK fentaNYL PATCH PLACEMENT SCH ×2 (01:37→08:07)
[2023-03-12] MEDS: POTASSIUM CHLORIDE 40 MEQ in SODIUM CHLORIDE 0.9% 1,000 ML IV SCH (02:41)
[2023-03-12] MEDS: oxyCODONE HCL IR 5 MG TAB (IMMEDIATE RELEASE) PO PRN ×2 (02:50→11:23)
[2023-03-12] MEDS: FUROSEMIDE INJ 20 MG/2 ML VIAL IV SCH (08:07)
[2023-03-12] MEDS: DOCUSATE SODIUM/SENNA 50/8.6MG TAB PO SCH (08:07)
[2023-03-12] MEDS: CYANOCOBALAMIN (B-12) 500 MCG TABLET PO SCH (08:07)
[2023-03-12] MEDS: POLYETHYLENE (MIRALAX) 17 GM PACK PO SCH (08:07)
[2023-03-12] MEDS: MULTIVITAMIN TAB PO SCH (08:07)
[2023-03-12] MEDS: ASCORBIC ACID 500 MG TAB PO SCH (08:07)
[2023-03-12] MEDS ORDERED: ZOLEDRONIC ACID 4 MG in SODIUM CHLOR 0.9% MINI-B 100 ML IV ONE (08:45)
[2023-03-12 09:02] LABS: Calcium 13.3 mg/dl (8.6-10.3); Potassium 3.6 mmol/L (3.5-5.1)
[2023-03-12 09:04] LABS: BUN Creatinine Ratio 22.6 (10-20); Est GFR (Non-African American) 70.8 ml/min
--- NOTE | 2023-03-12 09:20 | Hospitalist Progress Note ---
Date of Service March 12, 2023 Assessment & Plan (1) Metastatic squamous cell carcinoma to lung: Plan: (1) Malignant neoplasm of unspecified part of right bronchus or lung: (2) Back pain: (3) Chronic lymphoid leukemia: (4) History of back surgery: (5) Tobacco use: (6) COPD with emphysema: (7) Anemia: Plan: 68yo M with PMhx of tobacco use, COPD, DM II, HTN, elevated PSA, hx of CLL in 2016, microcytic anemia, locally advanced Squamous cell carcinoma diagnosed in July 2022 BACK PAIN LIKELY FROM T6, L2 COMPRESSION FRACTURES, LIKELY FROM METASTASIS (Pathological fractures in neoplastic disease to thoracic and lumbar vertebrae) SQUAMOUS CELL LUNG CA - Fentanyl patch PRN Dilaudid, Oxycodone Radiation Therapy evaluation: Status post radiation treatment of the spine 03/11 pain much improved continue Fentanyl patch, PRN Oxycodone at home - likely representing Metastatic Lung CA patient declining aggressive measures including chemotherapy, surgery Palliative Care consulted Oncology also on board patient and family requesting home with hospice service - hold ASA due to hemoptysis - discharge to home with hospice services HYPERCALCEMIA - Nephro consulted IV NSS and Lasix IV ordered - Ca remains at 12 given 2nd dose of Zometa prior to discharge LOW PHOSPHORUS, K - Severe protein-calorie malnutrition - replaced - from poor oral intake Boost TID Nutrition edconsult RLL COLLAPSE LIKELY FROM MUCUS PLUG, LUNG CANCER - Possible aspiration pneumonia component - remains on room air - Pulm consulted, no procedure recommended - continue Incentive Spirometry PRN Albuterol History of CLL Microcytic anemia - stable Constipation - Bowel regimen DM II - resume usual medications Chronic tobacco use COPD -Patient is still smoking 3 cigarettes daily, cessation encouraged -Patient denies need for nicotine patch -Has Proventil inhaler at home, uses this as needed, recently prescribed 1 month ago for viral infection where he completed his prednisone taper and doxycycline 1 week DVT ppx: teds, scds Lines: 2 PIV GI/FEN: Allow regular diet CODE: DNR/DNI - discussed care and goals with patient and family at bedside. Dispo: pending d/c home with hospice Admission and Anticipated Discharge Date Admission Date: March 05, 2023 Subjective ff up for hypercalcemia, etc seen resting in bed, sitting up comfortable states pain is mostly gone this morning no chest pain, dyspnea, palpitations, dizziness no cough, abdominal pain no other new symptoms states he is ready for discharge today Review of Systems Review of Systems: all noted and negative except for above Physical Exam Physical Exam: General- oriented x 3, not in distress, speaks in sentences with no effort or accessory muscle use Eyes- anicteric Neck- no JVD Lungs- clear breath sounds bilaterally, no rales/wheezes Heart- normal rate, regular rhythm; no murmurs Abdomen- normal bowel sounds, nondistended, soft, nontender Extremities- no pretibial edema, no calf tenderness Neuro- alert, oriented x 3; no gross focal neurologic deficits Skin- warm & dry Results & Data Results & Data Vital Signs (Past 12 Hours) Vital Signs Temp Pulse Pulse Resp BP Pulse Ox O2 Del Method 03/12/23 08:31 36.5 C 82 18 114/67 87 L Room Air 03/12/23 03:58 36.9 C 60 16 116/69 97 Room Air 03/12/23 00:05 36.9 C 76 18 126/78 90 Room Air 03/11/23 22:01 94 H 03/11/23 22:01 Nasal Cannula O2 Flow Rate 03/12/23 08:31 03/12/23 03:58 03/12/23 00:05 03/11/23 22:01 03/11/23 22:01 2 all noted and reviewed including below
[2023-03-12] MEDS: INSULIN ASPART PER UNIT CHARGE SC SCH (09:27)
--- NOTE | 2023-03-12 09:51 | Discharge Summary ---
Discharge Summary Date of Service March 12, 2023 Notes For Next Care Provider Medication Changes From Visit Fentanyl patch increased to 100mcg Oxycodone increased to 15mg PRN ASA discontinued Admission HPI Per Admitting Provider This is a 68yo M with PMhx of tobacco use, COPD, DM II, HTN, elevated PSA, hx of CLL in 2016, microcytic anemia, mediastinal adenopathy upon EUBS was found to have locally advanced Squamous cell carcinoma diagnosed in July 2022, although mediastinal adenopathy and weight loss was initially detected in Mar 2022. Pt has been reluctant to consider treatment therapies for multiple reasons including financial concerns and issues related to treatment. He was seen by radiation oncology for treatment in September 2022 but declined radiation therapy at that time as well. Palliative care had been consulted and involved in his care at that time as well. He has not met with any of these providers since November. Found to have hypokalemia of 2.5 and hypercalcemia of 13.8 on admission. ER has started IV fluids and xometa to correct. He presents today with worsening middle and lower back pain as well as increased swelling of his legs. Patient is having issues with ambulating, uses a cane at baseline, denies any recent falls however family is skeptical. Pt is using oxycodone 10 mg Q4H, and fentanyl patch 75 mcg at baseline. He states his fentanyl was increased in November up to 100 mcg however was very somnolent and slept during the majority of the day, so was reduced back down to 75 mcg. He notes increasing edema in bilateral legs over the past 2 weeks, significant swelling is nearly up to his knees. He is wearing socks because shoes do not fit anymore. He also has some edema in his right eyelid and side of his face this morning which was noticed by son, states that that has not been there before. Patient denies any known trauma to the area. He has had increasing fatigue and falls asleep easily, sometimes even while sitting upright on the toilet, as he has been increasingly constipated. notes that he has had increasing issues with tolerating food, patient admits that his diet has been poor, him when he has an appetite shortly afterwards he vomits on many occasions. He does have THC skittles which he consumes on a daily basis to help with appetite. Patient is smoking about 3 cigarettes daily still because he enjoys it. and son are present at bedside and supports the history. notes that he has lost approximately another 30 pounds since November, states that at that time he weighed approximately 132 pounds, today is near 100 pounds. Patient has been taking his home medications as prescribed, last taken this morning. Patient is adamant that he is not going to pursue chemotherapy. Agreeable to having imaging of his back obtained today to determine the status of his cancer, to see if there is any progression, and may be agreeable pending the outcome to having XRT if this will provide pain management relief. He is agreeable to meeting with palliative, and reports he was supposed to see oncology on Friday this week to discuss possible hospice. Discussion was held regarding resuscitation status, today patient is agreeable to being a DNR/DNI. Principal Dx & Hospital Course #1 = Principal Diagnosis (1) Metastatic squamous cell carcinoma to lung: (1) Malignant neoplasm of unspecified part of right bronchus or lung: (2) Back pain: (3) Chronic lymphoid leukemia: (4) History of back surgery: (5) Tobacco use: (6) COPD with emphysema: (7) Anemia: Plan: 68yo M with PMhx of tobacco use, COPD, DM II, HTN, elevated PSA, hx of CLL in 2015, microcytic anemia, locally advanced Squamous cell carcinoma diagnosed in July 2022 BACK PAIN LIKELY FROM T6, L2 COMPRESSION FRACTURES, LIKELY FROM METASTASIS (Pathological fractures in neoplastic disease to thoracic and lumbar vertebrae) SQUAMOUS CELL LUNG CA - Fentanyl patch PRN Dilaudid, Oxycodone Radiation Therapy evaluation: Status post radiation treatment of the spine 03/11 pain much improved continue Fentanyl patch, PRN Oxycodone at home - likely representing Metastatic Lung CA patient declining aggressive measures including chemotherapy, surgery Palliative Care consulted Oncology also on board patient and family requesting home with hospice service - hold ASA due to hemoptysis - discharge to home with hospice services HYPERCALCEMIA - Nephro consulted IV NSS and Lasix IV ordered - Ca remains at 12 given 2nd dose of Zometa prior to discharge LOW PHOSPHORUS, K - Severe protein-calorie malnutrition - replaced - from poor oral intake Boost TID Nutrition edconsult RLL COLLAPSE LIKELY FROM MUCUS PLUG, LUNG CANCER - Possible aspiration pneumonia component - remains on room air - Pulm consulted, no procedure recommended - continue Incentive Spirometry PRN Albuterol History of CLL Microcytic anemia - stable Constipation - Bowel regimen DM II - resume usual medications Chronic tobacco use COPD -Patient is still smoking 3 cigarettes daily, cessation encouraged -Patient denies need for nicotine patch -Has Proventil inhaler at home, uses this as needed, recently prescribed 1 month ago for viral infection where he completed his prednisone taper and doxycycline 1 week DVT ppx: teds, scds Lines: 2 PIV GI/FEN: Allow regular diet CODE: DNR/DNI - discussed care and goals with patient and family at bedside. Dispo: pending d/c home with hospice Discharge Exam General- oriented x 3, not in distress, speaks in sentences with no effort or accessory muscle use Eyes- anicteric Neck- no JVD Lungs- clear breath sounds bilaterally, no rales/wheezes Heart- normal rate, regular rhythm; no murmurs Abdomen- normal bowel sounds, nondistended, soft, nontender Extremities- no pretibial edema, no calf tenderness Neuro- alert, oriented x 3; no gross focal neurologic deficits Skin- warm & dry Updated Medication List Medication Instructions Recorded Confirmed Type alendronate 70 mg tablet (Fosamax) 70 mg PO WK 03/26/18 03/05/23 History aspirin 81 mg tablet,delayed 81 mg PO QAM 03/26/18 03/05/23 History release metformin 1,000 mg tablet 1,000 mg PO QAM 03/26/18 03/05/23 History calcium carbonate 500 mg-vitamin 1 tab PO QAM 05/14/19 03/05/23 History D3 5 mcg (200 unit) tablet (Calcium 500 + D) cyanocobalamin (vitamin B-12) 1,000 mcg PO QAM 05/14/19 03/05/23 History 1,000 mcg tablet (Vitamin B-12) lisinopril 40 mg tablet (Zestril) 20 mg PO QAM 05/14/19 03/05/23 History docusate sodium 100 mg capsule 100 mg PO DAILY PRN Constipation 06/08/19 03/05/23 History (Colace) fentanyl 75 mcg/hr transdermal 1 patch transdermal Q72H 07/18/22 03/05/23 History patch ferrous sulfate 325 mg (65 mg 325 mg PO QAM 07/18/22 03/05/23 History iron) tablet (Iron (ferrous sulfate)) acetaminophen 325 mg tablet 650 mg PO Q8 PRN Pain 09/09/22 03/05/23 History multivitamin 1 tab PO QAM 09/09/22 03/05/23 History oxycodone 10 mg tablet 10 mg PO Q4H PRN pain #60 tabs 10/15/22 03/05/23 Rx ascorbic acid (vitamin C) 1,000 mg 1 g PO QAM 03/05/23 03/05/23 History tablet (Vitamin C) fentanyl 100 mcg/hr transdermal 100 mcg transdermal Q72H #5 ea 03/12/23 Rx patch oxycodone 15 mg tablet 15 mg PO Q4H PRN pain #20 tabs 03/12/23 Rx polyethylene glycol 3350 17 gram 17 g PO DAILY 30 days #30 ea 03/12/23 Rx oral powder packet (Miralax) sennosides 8.6 mg-docusate sodium 1 tab PO BID 30 days #60 tabs 03/12/23 Rx 50 mg tablet (Senokot-S) Hospital Stay Data Consultations 03/05/23 15:53 ED Decision to Admit Stat 03/05/23 16:12 Consult Oncology Routine Consult Palliative Care Routine 03/05/23 18:05 Consult Nephrology Routine 03/05/23 18:06 Consult Pulmonology Routine 03/06/23 07:58 Consult Orthopedic Surgery Routine 03/08/23 08:53 Consult Radiation Oncology Routine Diagnostic Imagining Performed 03/05/23 16:36 CT lumbar spine wo con Stat CT thoracic spine wo con Stat 03/06/23 10:01 US venous doppler LE BI Urgent 03/10/23 CT guide rad therapy chest Routine Pending Results Patient Have Any Pending Studies at Discharge: No Discharge Instructions Given to Patient (Per Discharging Provider) PLEASE TAKE LAXATIVEs DAILY. STOP TAKING ASPIRIN. BOOST THREE TIMES A DAY. HOSPICE SERVICE WILL CONTINUE CARE AT HOME. Total Time Total Time Spent Total Time Spent (In Minutes): >30 minutes
== END 2023-03-12 12:17 | disposition hospice, home (50) | DRG 542 ==
LOC: ED 13:40 → SUATTDRO 16:25 → EDINP 16:25 → 2N 19:04